=== PATIENT | female | born 1940 | race Caucasian/White ===

== ENCOUNTER 2017-08-16 00:04 | Emergency (ER) | payer MEDICARE, BC ==
[~2017-08-16] VITALS: Ht 167.6 cm; Wt 71.2 kg
[~2017-08-16 00:04] MED LIST: GLIP2.5T6 PO; LEVO100T4 PO; LISI30TA44 PO; VALI5TAB PO
[2017-08-16 00:12] VITALS: BP 226/109; PULSE 116; RESP 18; TEMP 98.3; O2SAT 97
[2017-08-16] MEDS ORDERED: PARO20TA2 PO (00:27)
[2017-08-16] MEDS ORDERED: OMEP20TA93 PO (00:27)
[2017-08-16] MEDS ORDERED: LEVO100T5 PO (00:27)
[2017-08-16] MEDS ORDERED: MECL12.574 PO (00:27)
[2017-08-16] MEDS ORDERED: GLIP5TAB8 PO (00:27)
[2017-08-16] MEDS ORDERED: PROP20TA3 PO (00:27)
[2017-08-16 00:41] VITALS: BP 200/100; PULSE 99; RESP 18; O2SAT 95
--- NOTE | 2017-08-16 00:45 | PD ---
HPI Chief Complaint: Eye Problems/Injury Time Seen by Provider: 00:40 Travel History International Travel<30 days: No Contact w/Intl Traveler<30days: No Traveled to known affect area: No History of Present Illness HPI The patient is a 77-year-old female that at approximately 11:30 tonight was walking out to the mailbox and her foot got caught and she tripped, lost balance and fell and hit her right face. There was no loss of consciousness following the fall. She denies any cervical spine, thoracic spine or lumbar spine pain. She denies any focal numbness or weakness. She denies any headache. She is not on any anticoagulants. She has periorbital ecchymoses around the eye. She also notes that she bit her lower lip and has some bite lacerations there. She denies any loose teeth. She also had a nosebleed which resolved spontaneously. The patient states he did not take her nighttime blood pressure medication tonight. PFSH Past Medical History Anxiety: Yes Diabetes: Yes Patient Takes Glucophage: No GERD: Yes Hypertension: Yes Thyroid Disease: Yes Tetanus Vaccination: < 5 Years Influenza Vaccination: Yes Menopausal: Yes Past Surgical History Hysterectomy: Yes Social History Alcohol Use: No Tobacco Use: No Substance Use: No Allergies-Medications (Allergen,Severity, Reaction): Coded Allergies: No Known Allergies (Unverified Adverse Reaction, Unknown, 08/16/17) Reported Meds & Prescriptions Reported Meds & Active Scripts Active Reported Glipizide 5 Mg Tab 5 Mg PO BIDAC Take 30 minutes before a meal Meclizine (Meclizine HCl) 12.5 Mg Tab 12.5 Mg PO DIRECTED PRN Propranolol (Propranolol HCl) 20 Mg Tab 20 Mg PO Q12HR Paroxetine (Paroxetine HCl) 20 Mg Tab 20 Mg PO DAILY Omeprazole 20 Mg Tab 20 Mg PO DAILY Levothyroxine (Levothyroxine Sodium) 100 Mcg Tab 100 Mcg PO DAILY Review of Systems Except as stated in HPI: all other systems reviewed are Neg Physical Exam Narrative GENERAL: The patient is alert, oriented 3 in slight apparent distress with her right periorbital pain. Her vital signs show heart rate of 116 and blood pressure 226/109 but otherwise normal. SKIN: Focused skin assessment warm/dry. HEAD: Normocephalic. The patient has right periorbital ecchymoses but no bony deformity. No tenderness is present on the scalp and there is no deformity present on the scalp. EYES: Pupils equal and round. No scleral icterus. No injection or drainage. The right eye shows extraocular movements are normal, no blood in the anterior chamber, no proptosis and no evidence of rupture of the globe. ENT: No nasal bleeding or discharge. Mucous membranes pink and moist. The lower lip has a tooth laceration present, this does not need to be sutured. No loose teeth are present. NECK: Trachea midline. No JVD. No posterior CARDIOVASCULAR: Regular rate and rhythm. No murmur appreciated. RESPIRATORY: No accessory muscle use. Clear to auscultation. Breath sounds equal bilaterally. GASTROINTESTINAL: Abdomen soft, non-tender, nondistended. Hepatic and splenic margins not palpable. MUSCULOSKELETAL: No obvious deformities. No clubbing. No cyanosis. No edema. NEUROLOGICAL: Awake and alert. No obvious cranial nerve deficits. Motor grossly within normal limits. Normal speech. PSYCHIATRIC: Appropriate mood and affect; insight and judgment normal. Data Data Last Documented VS Vital Signs Date Time Temp Pulse Resp B/P (MAP) Pulse Ox O2 Delivery O2 Flow Rate FiO2 08/16/17 00:41 99 18 200/100 (133) 95 Room Air 08/16/17 00:[address] Facial Bones W/O Iv Cont (08/16/17 00:45) MDM Medical Decision Making Medical Screen Exam Complete: Yes Emergency Medical Condition: Yes Medical Record Reviewed: Yes Interpretation(s) The CAT scan of the facial bones shows a probable maxillary fracture on the right was some air in the orbit. There is a slight proptosis present as well. The patient will need to follow-up with Dr. Montilla who is adoption specialist [facility] for craniofacial. She'll be given Augmentin, 875 mg twice daily for 10 days. She also will get Percocet 5 prescription. Differential Diagnosis Fracture right maxillary sinus, ruptured globe-highly unlikely, facial bone fracture, entrapment Narrative Course The patient has a fractured right maxillary sinus. It is essentially nondisplaced. The radiologist has not read this film because, due to a problem with transmission, he could not read the CAT scan [facility]. Diagnosis Primary Impression: Fracture of right side of maxilla Additional Instructions: Do not drink alcohol or drive on the Percocet. The antibiotic is one tablet twice daily for [address] Montilla later on this morning to set up an appointment. Med/Other Pt SpecificInfo: Prescription(s) given Scripts Amoxicillin-Clavulanate (Augmentin) 875-125 Mg Tab 1 TAB PO BID for Infection for 10 Days, #20 TAB 0 Refills Prov: Pankaj Kaur MD 08/16/17 Oxycodone-Acetaminophen (Percocet) 5-325 mg Tab 1 TAB PO Q6H Y for PAIN, #20 TAB 0 Refills Prov: Pankaj Kaur MD 08/16/17 Disposition: 01 DISCHARGE HOME Condition: Stable Pankaj Kaur MD Aug 16, 2017 00:45
[2017-08-16] MEDS ORDERED: PERC5TAB12 PO (01:40)
[2017-08-16] MEDS ORDERED: AUGM875T3 PO (01:40)
[2017-08-16] MEDS ORDERED: oxyCODONE/ACETAMINOPHEN 5 MG/325 MG TAB PO ONE (01:45)
[2017-08-16] MEDS ORDERED: AMOXICILLIN/CLAVULANATE K 875 MG TAB PO ONE (01:45)
--- NOTE | 2017-08-16 02:17 | RADRPT ---
EXAM DATE/TIME: 08/16/2017 00:50 [facility] COMPARISON: No previous studies available for comparison. INDICATIONS : Trauma, fall. Right eye injury. RADIATION DOSE: 29.73 CTDIvol (mGy) MEDICAL HISTORY : None SURGICAL HISTORY : None. ENCOUNTER: Initial ACUITY: 1 day PAIN SCORE: 8/10 LOCATION: Right orbit TECHNIQUE: Volumetric scanning of the facial bones was performed. Using automated exposure control and adjustme nt of the mA and/or kV according to patient size, radiation dose was kept as low as reasonably achiev able to obtain optimal diagnostic quality images. DICOM format image data is available electronicall y for review and comparison. FINDINGS: ORBITS: There is a right orbital floor fracture. The fragment is depressed and displaced medially. There is a bnormal soft tissue in the superior right maxillary sinus with no definite evidence of nerve entrapme nt. The lamina papyracea appear intact. The superior and lateral laboy of the orbit are intact as wel l. Left orbit is unremarkable. The globes are grossly intact. There is mild right proptosis. There is a small amount of subcutaneous emphysema on the right. NASAL BONE: The nasal bone and maxillary spine are intact ZYGOMATIC ARCHES: Symmetric without evidence of fracture. SINUSES: The maxillary, ethmoid and frontal sinuses are intact. No air-fluid levels seen. NASAL CAVITY: The nasal septum is intact and midline. The lacrimal ducts are intact. SOFT TISSUES: No radiopaque foreign bodies seen. There is soft tissue swelling over the right frontal bone and orbi t. INTRACRANIAL: No intracranial air seen. CRIBIFORM PLATE: Grossly intact. CONCLUSION: 1. Right orbital floor fracture with depressed fragment which is rotated and displaced medially. Ther e is abnormal soft tissue density in the superior right maxillary sinus. 2. Soft tissue swelling of the right frontal bone and orbit. The globe is grossly intact. 3. Mild right proptosis. Jerry Gomez MD on August 16, 2017 at 2:13 Board Certified Radiologist. This report was verified electronically.
[2017-08-16 02:26] VITALS: BP 180/90; RESP 18
== END 2017-08-16 02:37 | disposition home or self-care (01) ==
LOC: PHED 00:04
DX: S02.40CA Maxillary fracture, right side, initial encounter for closed fracture (principal); W01.0XXA Fall on same level from slipping, tripping and stumbling without subsequent striking against object, initial encounter; Y93.01 Activity, walking, marching and hiking
CPT/HCPCS: 70486; 99284

== ENCOUNTER 2017-09-13 12:46 | Inpatient (IN) | payer MEDICARE, BC ==
[~2017-09-13] VITALS: Ht 165.1 cm; Wt 67.0 kg
[2017-09-13] VITALS (10 sets, daily range): BP systolic 111–177; BP diastolic 67–88; PULSE 90–108; RESP 16–23; TEMP 97.6–99.2; O2SAT 94–100
[~2017-09-13 12:46] MED LIST changes: +AUGM875T3 PO; -GLIP2.5T6 PO; +GLIP5TAB8 PO; -LEVO100T4 PO; +LEVO100T5 PO; -LISI30TA44 PO; +MECL12.574 PO; +OMEP20TA93 PO; +PARO20TA2 PO; +PERC5TAB12 PO; +PROP20TA3 PO; -VALI5TAB PO
--- NOTE | 2017-09-13 13:11 | PD ---
HPI Chief Complaint: Fall Time Seen by Provider: 13:07 Travel History International Travel<30 days: No Contact w/Intl Traveler<30days: No Traveled to known affect area: No History of Present Illness HPI This 77-year-old female apparently had a fall at home and hit her head. She is brought in by her brother. She says she was cleaning the garage and fell. She does not think she had a loss of consciousness. Brother says that she seemed a little bit confused at the scene. She is not on any blood thinners. She did have a fall in August and was seen here at that time. PFSH Past Medical History Anxiety: Yes Diabetes: Yes Patient Takes Glucophage: No GERD: Yes Hypertension: Yes Medical other: Yes (vertigo) Thyroid Disease: Yes Tetanus Vaccination: < 5 Years Influenza Vaccination: Yes Menopausal: Yes Past Surgical History Hysterectomy: Yes Social History Alcohol Use: No Tobacco Use: No Substance Use: No Allergies-Medications (Allergen,Severity, Reaction): Coded Allergies: No Known Allergies (Unverified Adverse Reaction, Unknown, 09/13/17) Reported Meds & Prescriptions Reported Meds & Active Scripts Active Percocet (Oxycodone-Acetaminophen) 5-325 mg Tab 1 Tab PO Q6H PRN Reported Glipizide 5 Mg Tab 5 Mg PO BIDAC Take 30 minutes before a meal Meclizine (Meclizine HCl) 12.5 Mg Tab 12.5 Mg PO DIRECTED PRN Propranolol (Propranolol HCl) 20 Mg Tab 20 Mg PO Q12HR Paroxetine (Paroxetine HCl) 20 Mg Tab 20 Mg PO DAILY Omeprazole 20 Mg Tab 20 Mg PO DAILY Levothyroxine (Levothyroxine Sodium) 100 Mcg Tab 100 Mcg PO DAILY Review of Systems General / Constitutional: No: Fever, Chills Eyes: No: Diploplia, Blurred Vision HENT: No: Headaches Cardiovascular: No: Chest Pain or Discomfort, Palpitations Respiratory: No: Cough, Shortness of Breath Genitourinary: No: Urgency, Frequency Neurologic: No: Weakness, Dizziness Psychiatric: No: Anxiety Physical Exam Narrative GENERAL: Well-developed female SKIN: Focused skin assessment warm/dry. HEAD: Normocephalic. There is a contusion with a small amount of bleeding in the occipital portion of the scalp, no definite lacerations seen EYES: Pupils equal and round. No scleral icterus. No injection or drainage. ENT: No nasal bleeding or discharge. Mucous membranes pink and moist. NECK: Trachea midline. No JVD. CARDIOVASCULAR: Regular rate and rhythm. No murmur appreciated. RESPIRATORY: No accessory muscle use. Clear to auscultation. Breath sounds equal bilaterally. GASTROINTESTINAL: Abdomen soft, non-tender, nondistended. Hepatic and splenic margins not palpable. MUSCULOSKELETAL: No obvious deformities. No clubbing. No cyanosis. No edema. NEUROLOGICAL: Awake and alert. No obvious cranial nerve deficits. Motor grossly within normal limits. Normal speech. She is not oriented to the year. She thinks it is August. She does which gave the week it is PSYCHIATRIC: Appropriate mood and affect; insight and judgment normal. Data Data Last Documented VS Vital Signs Date Time Temp Pulse Resp B/P (MAP) Pulse Ox O2 Delivery O2 Flow Rate FiO2 09/13/17 13:18 90 18 168/82 (110) 98 Room Air Orders Orders Complete Blood Count With Diff (09/13/17 13:07) Basic Metabolic Panel (Bmp) (09/13/17 13:07) Ct Brain W/O Iv Contrast(Rout) (09/13/17 13:07) Ct Cerv Spine W/O Contrast (09/13/17 13:07) Prothrombin Time / Inr (Pt) (09/13/17 14:21) Act Partial Throm Time (Ptt) (09/13/17 14:21) Glipizide (Glucotrol) (09/13/17 16:00) Levothyroxine (Synthroid) (09/14/17 06:00) Meclizine (Antivert) (09/13/17 15:00) Oxycodone-Acetamin 5-325 Mg (Percocet (09/13/17 15:00) Paroxetine (Paxil) (09/14/17 09:00) Propranolol (Inderal) (09/13/17 21:00) Pantoprazole (Protonix) (09/14/17 09:00) Admit Order (Ed Use Only) (09/13/17 14:41) Pill Splitter (Pill Splitter) (09/13/17 15:00) Admit To Inpatient (09/13/17 14:43) Elevate Head Of Bed (09/13/17 14:43) Intake + Output REBECCA.Q8H (09/13/17 14:43) Diet Clear Liquid (09/13/17 Dinner) Complete Blood Count With Diff (09/14/17 06:00) Basic Metabolic Panel (Bmp) (09/14/17 06:00) Prothrombin Time / Inr (Pt) (09/14/17 06:00) Act Partial Throm Time (Ptt) (09/14/17 06:00) Resp Incentive Spirometry (09/13/17 14:43) Consult Pt Eval & Treat (09/13/17 14:43) Activity Oob With Assistance PRN (09/13/17 14:43) Diet Progression Instructions (09/13/17 14:43) Ct Brain W/O Iv Contrast(Rout) (09/14/17 06:00) Scd Bilateral/Knee High REBECCA.QSHIFT (09/13/17 14:43) Neuro Checks RT.Q1H (09/13/17 14:43) Vital Signs (Adult) REBECCA.Q1H (09/13/17 14:43) Inpatient Certification (09/13/17 ) 1/2 Ns + Kcl 20 Meq Inj (2 Ns + Kcl 20 (09/13/17 14:43) Docusate Sodium (Colace) (09/13/17 21:00) Ondansetron Inj (Zofran Inj) (09/13/17 18:00) Labetalol Inj (Trandate Inj) (09/13/17 15:00) Enalaprilat Inj (Vasotec Inj) (09/13/17 22:00) Labs Laboratory Tests Test 09/13/17 13:13 White Blood Count 10.6 TH/MM3 Red Blood Count 4.25 MIL/MM3 Hemoglobin 11.7 GM/DL Hematocrit 36.0 % Mean Corpuscular Volume 84.7 FL Mean Corpuscular Hemoglobin 27.5 PG Mean Corpuscular Hemoglobin Concent 32.5 % Red Cell Distribution Width 14.0 % Platelet Count 240 TH/MM3 Mean Platelet Volume 8.0 FL Neutrophils (%) (Auto) 75.8 % Lymphocytes (%) (Auto) 14.7 % Monocytes (%) (Auto) 6.3 % Eosinophils (%) (Auto) 2.0 % Basophils (%) (Auto) 1.2 % Neutrophils # (Auto) 8.0 TH/MM3 Lymphocytes # (Auto) 1.6 TH/MM3 Monocytes # (Auto) 0.7 TH/MM3 Eosinophils # (Auto) 0.2 TH/MM3 Basophils # (Auto) 0.1 TH/MM3 CBC Comment AUTO DIFF Differential Comment AUTO DIFF CONFIRMED Platelet Estimate NORMAL Platelet Morphology Comment NORMAL Blood Urea Nitrogen 17 MG/DL Creatinine 1.00 MG/DL Random Glucose 201 MG/DL Calcium Level 9.1 MG/DL Sodium Level 141 MEQ/L Potassium Level 4.5 MEQ/L Chloride Level 106 MEQ/L Carbon Dioxide Level 25.8 MEQ/L Anion Gap 9 MEQ/L Estimat Glomerular Filtration Rate 54 ML/MIN MDM Medical Decision Making Medical Screen Exam Complete: Yes Emergency Medical Condition: Yes Medical Record Reviewed: Yes Differential Diagnosis Differential includes subdural, skull fracture, cervical spine fracture Narrative Course CT scan shows acute subdural hematoma along the left frontal parietal and temporal lobes measuring 5 mm in greatest width. There is 4 mm of subfalcine herniation to the right there is also a fracture of the right occipital skull. CT scan of the cervical spine confirms a right occipital skull base fracture. No cervical spine fracture is seen and there are extensive degenerative changes. Case discussed with Dr. CAMACHO. She will be transferred to [place] Diagnosis Primary Impression: Subdural hematoma Additional Impression: Skull fracture Admitting Information Admitting Physician Requests: Admit Po Quinones MD Sep 13, 2017 13:11
[2017-09-13 13:23] LABS: BASOPHIL # 0.1 TH/MM3 (0-0.2); BASOPHIL % 1.2 % (0.0-2.0); EOSINOPHIL # 0.2 TH/MM3 (0-0.4); HEMOGLOBIN 11.7 GM/DL (11.6-15.3); LYMPH % 14.7 % (9.0-44.0); LYMPHOCYTE # 1.6 TH/MM3 (1.0-4.8); MEAN CELL VOLUME 84.7 FL (80.0-100.0); MEAN CORPUSCULAR HEMOGLOBIN 27.5 PG (27.0-34.0); MEAN CORPUSCULAR HGB CONC 32.5 % (32.0-36.0); MONO % 6.3 % (0.0-8.0); MONOCYTE # 0.7 TH/MM3 (0-0.9); NEUT % 75.8 % (16.0-70.0); PLATELET COUNT 240 TH/MM3 (150-450); RED BLOOD COUNT 4.25 MIL/MM3 (4.00-5.30); WHITE BLOOD COUNT 10.6 TH/MM3 (4.0-11.0)
[2017-09-13 13:34] LABS: BICARBONATE 25.8 MEQ/L (21.0-32.0); CALCIUM 9.1 MG/DL (8.5-10.1)
--- NOTE | 2017-09-13 14:24 | RADRPT ---
EXAM DATE/TIME: 09/13/2017 13:56 [facility] COMPARISON: CT CERVICAL SPINE W/O CONTRAST, September 13, 2017, 13:56. CT BRAIN W/O CONTRAST, May 29, 2014, 22:29. INDICATIONS : Trauma. Fell and hit back of head. Posterior head laceration. RADIATION DOSE: 62.32 CTDIvol (mGy) MEDICAL HISTORY : Diabetes mellitus type 2. Hypertension. SURGICAL HISTORY : Hysterectomy. ENCOUNTER: Initial ACUITY: 1 day PAIN SCALE: 2/10 LOCATION: cranial TECHNIQUE: Multiple contiguous axial images were obtained of the head. Using automated exposure control and adj ustment of the mA and/or kV according to patient size, radiation dose was kept as low as reasonably a chievable to obtain optimal diagnostic quality images. DICOM format image data is available electro nically for review and comparison. FINDINGS: There is evidence of an acute subdural hematoma along the left frontal, parietal and temporal lobes m easuring 5 mm in greatest width. Acute subarachnoid hemorrhage is also noted throughout the left fron chidi lobe and scattered petechial hemorrhages are also noted within left frontal lobe. There is 4 mm o f subfalcine herniation to the right. There is an acute fracture involving the right occipital skull. Subgaleal hematoma is noted along the right occipital and posterior parietal skull. The ventricles a re normal in size shape and position for patient's age. CONCLUSION: 1. Acute subdural hematoma along the left frontal, parietal and temporal lobes measuring 5 mm in grea test width. Acute subarachnoid hemorrhage is also noted throughout the left frontal lobe and scattere d petechial hemorrhages are also noted within left frontal lobe. There is 4 mm of subfalcine herniati on to the right. 2. Acute fracture mild right occipital skull as well as subgaleal hematoma along the right occipital and posterior parietal skull. Mike Laguna MD on September 13, 2017 at 14:16 Board Certified Radiologist. This report was verified electronically.
--- NOTE | 2017-09-13 14:45 | RADRPT ---
EXAM DATE/TIME: 09/13/2017 13:56 [facility] COMPARISON: No previous studies available for comparison. INDICATIONS : Trauma. Fell and hit back of head. Posterior head laceration. RADIATION DOSE: 25.58 CTDIvol (mGy) MEDICAL HISTORY : Diabetes mellitus type 2. Hypertension. SURGICAL HISTORY : Hysterectomy. ENCOUNTER: Initial ACUITY: 1 day PAIN SCALE: 2/10 LOCATION: neck TECHNIQUE: Volumetric scanning of the cervical spine was performed. Multiplanar reconstructions in the sagittal, coronal and oblique axial planes were performed. Using automated exposure control and adjustment o f the mA and/or kV according to patient size, radiation dose was kept as low as reasonably achievable to obtain optimal diagnostic quality images. DICOM format image data is available electronically f or review and comparison. FINDINGS: Degenerative changes and scoliosis of the cervical spine are noted. There is a cervical spondylosis f rom C2 through C7. There is no acute fracture or prevertebral soft tissue swelling. There is an acute fracture involving the right occipital skull base. Mild spinal stenosis is noted at C3-4 and C5-6. M oderate bilateral foraminal narrowing is noted at C5-6, moderate left neural foraminal narrowing is n oted at C6-7, and moderate right neural foraminal narrowing is noted at C3-4. The bony relationship a nd alignment between C1 and C2 is well maintained. CONCLUSION: 1. Acute fracture involving right occipital skull base. 2. No definite acute fracture or prevertebral soft tissue swelling within the cervical spine. 3. Mild spinal stenosis at C3-4 and C5-6. 4. Moderate bilateral foraminal narrowing at C5-6, moderate left neuroforaminal at C6-7 and moderate right neural foraminal narrowing at C3-4. 5. Diffuse cervical spondylosis from C2 through C7. 6. Degenerative changes and scoliosis of the cervical spine. Mike Laguna MD on September 13, 2017 at 14:32 Board Certified Radiologist. This report was verified electronically.
[2017-09-13] MEDS ORDERED: PILL SPLITTER OTHER PRN (15:00)
[2017-09-13] MEDS ORDERED: oxyCODONE/ACETAMINOPHEN 5 MG/325 MG TAB PO PRN (15:00)
[2017-09-13] MEDS ORDERED: MECLIZINE HCL 25 MG TAB PO PRN (15:00)
--- NOTE | 2017-09-13 15:01 | HHI.HP ---
[facility] Service Neurosurgery Primary Care Physician Milo BossNorbertochrista Arce MD History of Present Illness 77-year-old female who previously presented to the emergency room on 08/16/2017 after falling at home after she tripped while going to her mailbox. She struck the right side of the face without loss of consciousness. In the emergency room she was noted to have right periorbital ecchymosis. A right orbital floor fracture with some swelling around the right frontal bone and orbit was noted on maxillofacial CT scan. She fell again today for cleaning out her garage. She states that she was down on her knees and only fell forward slightly. She actually does remember hitting her head. Again no definite loss of consciousness but was noted to be somewhat confused at the scene. She presented to the emergency room at [facility] without significant headache and no nausea or emesis. No seizure activity reported. She denies any neck or low back pain. No nausea or vomiting. No dizziness or vertigo. No blurred vision or diplopia. Review of Systems Constitutional: COMPLAINS OF: Fatigue, DENIES: Dizziness, Change in appetite Eyes: DENIES: Blurred vision, Diplopia Ears, nose, mouth, throat: COMPLAINS OF: Hearing loss, DENIES: Vertigo Respiratory: DENIES: Cough, Shortness of breath Cardiovascular: DENIES: Chest pain, Palpitations Gastrointestinal: DENIES: Abdominal pain, Constipation, Diarrhea, Nausea Musculoskeletal: DENIES: Joint pain, Muscle aches Integumentary: DENIES: Rash Neurologic: COMPLAINS OF: Headache, DENIES: Abnormal gait Psychiatric: DENIES: Anxiety, Confusion Past Family Social History Allergies: Coded Allergies: No Known Allergies (Unverified Adverse Reaction, Unknown, 09/13/17) Past Medical History Diabetes Hypertension hypothyroidism GERD Anxiety disorder Past Surgical History Hysterectomy Reported Medications Reported Meds & Active Scripts Active Percocet (Oxycodone-Acetaminophen) 5-325 mg Tab 1 Tab PO Q6H PRN Reported Glipizide 5 Mg Tab 5 Mg PO BIDAC Take 30 minutes before a meal Meclizine (Meclizine HCl) 12.5 Mg Tab 12.5 Mg PO DIRECTED PRN Propranolol (Propranolol HCl) 20 Mg Tab 20 Mg PO Q12HR Paroxetine (Paroxetine HCl) 20 Mg Tab 20 Mg PO DAILY Omeprazole 20 Mg Tab 20 Mg PO DAILY Levothyroxine (Levothyroxine Sodium) 100 Mcg Tab 100 Mcg PO DAILY Family History Patient states no history of cardiac disease, diabetes, cancer in the family Social History No alcohol or cigarette use She states she lives alone Physical Exam Vital Signs Vital Signs Date Time Temp Pulse Resp B/P (MAP) Pulse Ox O2 Delivery O2 Flow Rate FiO2 09/13/17 13:18 90 18 168/82 (110) 98 Room Air 09/13/17 13:02 99 Room Air Physical Exam GENERAL: This is a well-nourished, well-developed patient, no apparent distress. SKIN: No abrasions, contusion, rash noted. Skin warm and dry. HEAD: Atraumatic. Normocephalic. No temporal or scalp tenderness. EYES: Sclerae are clear and nonicteric ENT: No facial edema or ecchymosis. No periorbital edema. No CSF otorrhea or rhinorrhea. No palpable facial fracture or deformity. NECK: Trachea midline. No cervical spine tenderness. CARDIOVASCULAR: Regular rate and rhythm without murmurs, gallops, or rubs. RESPIRATORY: Clear to auscultation. Breath sounds equal bilaterally. No wheezes , rales, or rhonchi. GASTROINTESTINAL: Abdomen soft, non-tender, nondistended. No hepato-splenomegaly , or palpable masses. No guarding. MUSCULOSKELETAL: Extremities without cyanosis, or edema. No joint tenderness, or edema noted. No calf tenderness. Dorsalis pedis pulses 2+ bilateral NEUROLOGICAL: Awake and alert Oriented X 3 Speech is clear Conversant and appropriate Follow simple commands well Answers questions appropriately Seems to have diminished judgment and insight Recent and remote memory are reasonably intact, although she does not seem to recall what happened to her earlier today No evidence of anxiety or depression Pupils are equal and reactive to accommodation. Extra-ocular movements, visual machado to confrontation, facial sensorimotor, tongue, palate, sternocleidomastoid testing, hearing to finger rub testing, and bilateral shoulder shrug are all intact. Sensation is intact to light touch in all extremities Strength normal major flexion and extension groups all extremities Regino's absent bilaterally No ankle clonus Plantar responses absent bilateral Fine motor movements intact upper extremities Laboratory Laboratory Tests Test 09/13/17 13:13 White Blood Count 10.6 Red Blood Count 4.25 Hemoglobin 11.7 Hematocrit 36.0 Mean Corpuscular Volume 84.7 Mean Corpuscular Hemoglobin 27.5 Mean Corpuscular Hemoglobin Concent 32.5 Red Cell Distribution Width 14.0 Platelet Count 240 Mean Platelet Volume 8.0 Neutrophils (%) (Auto) 75.8 Lymphocytes (%) (Auto) 14.7 Monocytes (%) (Auto) 6.3 Eosinophils (%) (Auto) 2.0 Basophils (%) (Auto) 1.2 Neutrophils # (Auto) 8.0 Lymphocytes # (Auto) 1.6 Monocytes # (Auto) 0.7 Eosinophils # (Auto) 0.2 Basophils # (Auto) 0.1 CBC Comment AUTO DIFF Differential Comment AUTO DIFF CONFIRMED Platelet Estimate NORMAL Platelet Morphology Comment NORMAL Blood Urea Nitrogen 17 Creatinine 1.00 Random Glucose 201 Calcium Level 9.1 Sodium Level 141 Potassium Level 4.5 Chloride Level 106 Carbon Dioxide Level 25.8 Anion Gap 9 Estimat Glomerular Filtration Rate 54 Result Diagram: 09/13/17 1313 09/13/17 1313 Imaging 09/23/2017 CT scan head and cervical spine images reviewed by the undersigned. The study reveals approximately 3-5 mm maximum thickness left frontotemporoparietal acute subdural hematoma with mild to moderate mass effect , approximate 4 mm midline shift which is mostly confined to the left frontal region. Small amount of subarachnoid hemorrhage and contusion in the left frontal lobe is noted. There is a right occipital nondisplaced skull fracture. Right parieto-occipital subgaleal hematoma. Cervical spine CT scan 09/13/2017 images reveal mild to moderate diffuse degenerative changes with mild C3 4 and moderate C5 6 canal stenosis and moderate bilateral C5 6 and C6 7 foraminal stenosis. No evidence of significant cord compression. No acute fracture or subluxation. The occipital bone fracture is noted. Head CT 09/13/17 1307 Signed Impressions: Service Date/Time: September 13:56 - CONCLUSION: 1. Acute subdural hematoma along the left frontal, parietal and temporal lobes measuring 5 mm in greatest width. Acute subarachnoid hemorrhage is also noted throughout the left frontal lobe and scattered petechial hemorrhages are also noted within left frontal lobe. There is 4 mm of subfalcine herniation to the right. 2. Acute fracture mild right occipital skull as well as subgaleal hematoma along the right occipital and posterior parietal skull. Mike Laguna MD Cervical Spine CT 09/13/17 1307 Signed Impressions: Service Date/Time: September 13:56 - CONCLUSION: 1. Acute fracture involving right occipital skull base. 2. No definite acute fracture or prevertebral soft tissue swelling within the cervical spine. 3. Mild spinal stenosis at C3-4 and C5-6. 4. Moderate bilateral foraminal narrowing at C5-6, moderate left neuroforaminal at C6-7 and moderate right neural foraminal narrowing at C3-4. 5. Diffuse cervical spondylosis from C2 through C7. 6. Degenerative changes and scoliosis of the cervical spine. MD Bulmaro Akins VTE Risk Assessment Bulmaro VTE Risk Assessment: No/Low Risk (score <= 1) VTE Pharm Contraindication: Hemorrhage Caprini Risk Assessment Model Point Value = 1 Point Value = 2 Point Value = 3 Point Value = 5 Age 41-60 Minor surgery BMI > 25 kg/m2 Swollen legs Varicose veins or History of unexplained or recurrent spontaneous Oral contraceptives or hormone replacement Sepsis (< 1 month) Serious lung disease, including pneumonia (< 1 month) Abnormal pulmonary function Acute myocardial infarction Congestive heart failure (< 1 month) History of inflammatory bowel disease Medical patient at bed rest Age 61-74 Arthroscopic surgery Major open surgery (> 45 min) Laparoscopic surgery (> 45 min) Malignancy Confined to bed (> 72 hours) Immobilizing plaster cast Central venous access Age >= 75 History of VTE Family history of VTE Factor V Leiden Prothrombin [id number] Lupus anticoagulant Anticardiolipin antibodies Elevated serum homocysteine Heparin-induced thrombocytopenia Other congenital or acquired thrombophilia Stroke (< 1 month) Elective arthroplasty Hip, pelvis, or leg fracture Acute spinal cord injury (< 1 month) Prophylaxis Regimen Total Risk Factor Score Risk Level Prophylaxis Regimen 0-1 Low Early ambulation 2 Moderate Order ONE of the following: *Sequential Compression Device (SCD) *Heparin 5000 units SQ BID 3-4 Higher Order ONE of the following medications: *Heparin 5000 units SQ TID *Enoxaparin/Lovenox 40 mg SQ daily (WT < 150 kg, CrCl > 30 mL/min) *Enoxaparin/Lovenox 30 mg SQ daily (WT < 150 kg, CrCl > 10-29 mL/min) *Enoxaparin/Lovenox 30 mg SQ BID (WT < 150 kg, CrCl > 30 mL/min) AND/OR *Sequential Compression Device (SCD) 5 or more Highest Order ONE of the following medications: *Heparin 5000 units SQ TID (Preferred with Epidurals) *Enoxaparin/Lovenox 40 mg SQ daily (WT < 150 kg, CrCl > 30 mL/min) *Enoxaparin/Lovenox 30 mg SQ daily (WT < 150 kg, CrCl > 10-29 mL/min) *Enoxaparin/Lovenox 30 mg SQ BID (WT < 150 kg, CrCl > 30 mL/min) AND *Sequential Compression Device (SCD) Assessment and Plan Assessment and Plan Impression: 1. Traumatic brain injury with left frontotemporoparietal acute subdural hematoma 2. Occipital skull fracture-close nondepressed 3. Hypertension 4. Diabetes 5. Anxiety disorder 6.GERD Plan: Discussed with emergency room physician Patient will be admitted to the intensive surgical care unit for close vital signs and neurologic checks Non-chemical DVT prophylaxis Ulcer prophylaxis Physical therapy consult to assess ambulation Follow up CT scan had 09/14/2017 Continue present medication for hypertension with additional when necessary medications. Insulin sliding scale Terrell Burgess MD Sep 13, 2017 15:01
[2017-09-13] MEDS ORDERED: GLUCAGON 1 MG/ML VIAL OTHER PRN (15:15)
[2017-09-13 15:31] LABS: INTERNATIONAL NORMALIZED RATIO 1.1 RATIO; PROTHROMBIN TIME - PATIENT 10.9 SEC (9.8-11.6)
[2017-09-13] MEDS: glipiZIDE 5 MG TAB PO SCH (17:33)
[2017-09-13] MEDS: INSULIN NovoLIN REGULAR SUPPLEMENTAL SCALE SQ SCH ×2 (17:34→21:00)
[2017-09-13] MEDS: 1/2 NS + KCL 20 MEQ INJ 1,000 ML IV SCH (17:34)
[2017-09-13] MEDS ORDERED: ONDANSETRON HCL 4 MG/2 ML VIAL IV PUSH PRN (18:00)
[2017-09-13] MEDS: PROPRANOLOL HCL 20 MG TAB PO SCH (21:08)
[2017-09-13] MEDS: DOCUSATE SODIUM 100 MG CAP PO SCH (21:08)
[2017-09-13] MEDS: ENALAPRILAT 1.25 MG/ML VIAL IV PUSH SCH (21:26)
[2017-09-14] VITALS (16 sets, daily range): BP systolic 135–174; BP diastolic 63–72; PULSE 77–96; RESP 20–28; TEMP 97.7–100; O2SAT 95–99
[2017-09-14] MEDS ORDERED: DEXMEDETOMIDINE INJ 200 MCG in SODIUM CHLORIDE 0.9% INJ 50 ML IV PRN (04:00)
--- NOTE | 2017-09-14 04:00 | PD.CONS ---
[facility] Service Critical Care Medicine Consult Requested By Dr. Burgess Reason for Consult Agitation Primary Care Physician Milo BossNorbertoDarin Arce MD History of Present Illness 77-year-old female. Date of admission 09/13/2017. Date of consultation 09/14/2017. Past medical history includes anxiety, hypertension, gastroesophageal reflux disease, diabetes and hypothyroidism. Previous history of fall 08/26. At that time, she was diagnosed with A right orbital floor fracture with some swelling around the right frontal bone and orbit was noted on maxillofacial CT scan. Today, she is cleaning out her garage. She was fell down. Checks her head. No loss of consciousness. She had no headache, nausea or emesis. No seizure activity reported. She denies any neck or low back pain. No nausea or vomiting. No dizziness or vertigo. No blurred vision or diplopia. CT brain revealed right subgaleal hematoma, left subdural and subarachnoid hemorrhage. Patient was admitted under the care of Dr. Burgess. Today, patient become more agitated. We are asked to patient regards to agitation so she can repeat head CT. Patient is currently arousable but not falling commands. Moving all 4 extremity spontaneously. Currently 4.0 Schanz. Review of Systems ROS Limitations: Altered Mental Status Past Family Social History Allergies: Coded Allergies: No Known Allergies (Unverified Adverse Reaction, Unknown, 09/13/17) Past Medical History Anxiety Hypertension Gastroesophageal reflux disease Diabetes mellitus Hypothyroidism Past Surgical History Hysterectomy Reported Medications Active Percocet (Oxycodone-Acetaminophen) 5-325 mg Tab 1 Tab PO Q6H PRN Reported Glipizide 5 Mg Tab 5 Mg PO BIDAC Take 30 minutes before a meal Meclizine (Meclizine HCl) 12.5 Mg Tab 12.5 Mg PO DIRECTED PRN Propranolol (Propranolol HCl) 20 Mg Tab 20 Mg PO Q12HR Paroxetine (Paroxetine HCl) 20 Mg Tab 20 Mg PO DAILY Omeprazole 20 Mg Tab 20 Mg PO DAILY Levothyroxine (Levothyroxine Sodium) 100 Mcg Tab 100 Mcg PO DAILY Active Ordered Medications Reviewed in EMR Family History No history of diabetes, hypertension, CVA Social History No tobacco, alcohol or IV drug use. Physical Exam Vital Signs Vital Signs Date Time Temp Pulse Resp B/P (MAP) Pulse Ox O2 Delivery O2 Flow Rate FiO2 09/14/17 02:00 90 22 145/67 (93) 95 1/5/18 02:00 90 09/14/17 01:00 92 25 143/64 (90) 96 09/14/17 00:00 100.0 96 25 150/67 (94) 95 09/14/17 00:00 96 09/13/17 23:00 100 17 111/68 (82) 94 09/13/17 23:00 98 09/13/17 22:00 100 09/13/17 22:00 100 18 111/69 (83) 94 09/13/17 21:00 99.2 108 17 149/67 (94) 98 09/13/17 20:00 99.2 102 23 154/70 (98) 100 09/13/17 20:00 108 09/13/17 19:00 99.2 98 17 177/85 (115) 99 09/13/17 18:00 98 17 177/85 (115) 99 09/13/17 18:00 95 09/13/17 17:00 97.6 101 16 158/88 (111) 98 09/13/17 16:31 09/13/17 15:34 97.8 92 17 160/76 (104) 98 Room Air 09/13/17 14:20 95 17 166/77 (106) 100 Room Air 09/13/17 13:18 90 18 168/82 (110) 98 Room Air 09/13/17 13:02 99 Room Air Physical Exam GENERAL: 77-year-old female currently resting in bed in no acute distress SKIN: Warm and dry. HEAD: Renu right orbital rim fracture and currently the nondisplaced right occipital fracture EYES: Pupils equal and round. About 3 Espinoza's bilaterally and reactive No scleral icterus. No injection or drainage. ENT: No nasal bleeding or discharge. Mucous membranes pink and moist. NECK: Trachea midline. No JVD. CARDIOVASCULAR: Regular rate and rhythm. RESPIRATORY: No accessory muscle use. Clear to auscultation. Breath sounds equal bilaterally. GASTROINTESTINAL: Abdomen soft, non-tender, nondistended. Hepatic and splenic margins not palpable. MUSCULOSKELETAL: Extremities without clubbing, cyanosis, or edema. No obvious deformities. NEUROLOGICAL: Awake and alert. No obvious cranial nerve deficits. Motor grossly normal. Moving all 4 extremities spontaneously but not currently to command. Laboratory Laboratory Tests Test 09/13/17 13:13 09/13/17 15:12 White Blood Count 10.6 Red Blood Count 4.25 Hemoglobin 11.7 Hematocrit 36.0 Mean Corpuscular Volume 84.7 Mean Corpuscular Hemoglobin 27.5 Mean Corpuscular Hemoglobin Concent 32.5 Red Cell Distribution Width 14.0 Platelet Count 240 Mean Platelet Volume 8.0 Neutrophils (%) (Auto) 75.8 Lymphocytes (%) (Auto) 14.7 Monocytes (%) (Auto) 6.3 Eosinophils (%) (Auto) 2.0 Basophils (%) (Auto) 1.2 Neutrophils # (Auto) 8.0 Lymphocytes # (Auto) 1.6 Monocytes # (Auto) 0.7 Eosinophils # (Auto) 0.2 Basophils # (Auto) 0.1 CBC Comment AUTO DIFF Differential Comment AUTO DIFF CONFIRMED Platelet Estimate NORMAL Platelet Morphology Comment NORMAL Blood Urea Nitrogen 17 Creatinine 1.00 Random Glucose 201 Calcium Level 9.1 Sodium Level 141 Potassium Level 4.5 Chloride Level 106 Carbon Dioxide Level 25.8 Anion Gap 9 Estimat Glomerular Filtration Rate 54 Prothrombin Time 10.9 Prothromb Time International Ratio 1.1 Activated Partial Thromboplast Time 26.1 Result Diagram: 09/13/17 1313 09/13/17 1313 Imaging Last Impressions Head CT 09/13/17 1307 Signed Impressions: Service Date/Time: September 13:56 - CONCLUSION: 1. Acute subdural hematoma along the left frontal, parietal and temporal lobes measuring 5 mm in greatest width. Acute subarachnoid hemorrhage is also noted throughout the left frontal lobe and scattered petechial hemorrhages are also noted within left frontal lobe. There is 4 mm of subfalcine herniation to the right. 2. Acute fracture mild right occipital skull as well as subgaleal hematoma along the right occipital and posterior parietal skull. Mike Laguna MD Cervical Spine CT 09/13/17 1307 Signed Impressions: Service Date/Time: September 13:56 - CONCLUSION: 1. Acute fracture involving right occipital skull base. 2. No definite acute fracture or prevertebral soft tissue swelling within the cervical spine. 3. Mild spinal stenosis at C3-4 and C5-6. 4. Moderate bilateral foraminal narrowing at C5-6, moderate left neuroforaminal at C6-7 and moderate right neural foraminal narrowing at C3-4. 5. Diffuse cervical spondylosis from C2 through C7. 6. Degenerative changes and scoliosis of the cervical spine. Mike Laguna MD Septic Shock Reassessment Septic shock perfusion: reassessment completed Assessment and Plan Assessment and Plan Neuro/Psych: Left frontotemporal parietal acute subdural hematoma Left frontal subarachnoid hemorrhage Right occipital nondisplaced skull fracture Right parietal occipital subcutaneous galeal hematoma C3 through C6 moderate canal stenosis and C5 to C7 moderate bilateral foraminal stenosis Depression/anxiety Chronic narcotic use Continue paroxetine 20 mg by mouth daily home medication for depression/anxiety Continue oxycodone/acetaminophen 5/325 one tablet every [address] brain 09/13 - 4mm maximum thickness left frontotemporoparietal acute subdural hematoma with mild to moderate mass effect, approximate 4 mm midline shift which is mostly confined to the left frontal region. Small amount of subarachnoid hemorrhage and contusion in the left frontal lobe is noted. There is a right occipital nondisplaced skull fracture. Right parieto-occipital subgaleal hematoma. Cervical spine CT scan 09/13/2017 i-n mild to moderate diffuse degenerative changes with mild C3 4 and moderate C5 6 canal stenosis and moderate bilateral C5 6 and C6 7 foraminal stenosis. No evidence of significant cord compression. No acute fracture or subluxation. The occipital bone fracture is noted. CT brain ordered for today. Currently on dexmedetomidine due to agitation Goal RASS 0 CV: Hypertension Currently on one half normal saline with KCl 100 cc an hour Currently on propranolol 20 mg by mouth daily Currently on scheduled enalaprilat 1.25 mg every 8 hours As needed labetalol 10 mg every hour's as needed systolic pressure is 160 Resp: Nasal cannula to maintain saturations greater than equal to 92% Incentive spirometry while awake GI: Gastroesophageal reflux disease Currently on pantoprazole 20 mg by mouth daily. On omeprazole 20 mg by mouth daily at home for gastroesophageal reflux disease Docusate sodium 100 mg by mouth twice a day for bowel regimen : No indication for Watts catheter Endo: Diabetes mellitus Hypothyroidism Currently in glipizide 5 mg twice a day and Novulin R SSI with Accu-Cheks before meals/at bedtime to maintain euglycemia/low regimen Continue levothyroxine 100 mcg by mouth daily for hypothyroidism Renal: Creatinine currently within normal limits Monitor urine output Accurate I's and O's Heme: CBC within normal limits Does not be transfusion thresholds at this time Coags normal ID: Monitor for infection FEN: Replace electrolytes as clinically indicated MSK: PT evaluate and treat Access - Utilize peripheral IVs. Central line if indicated Prophylaxis - GI - pantoprazole - DVT - SCD/holding pharmacological prophylaxis until okay with neurosurgery Level II consult Code Status Full code Discussed Condition With Patient. Care plan discussed and all questions answered. Johnny Copeland MD Sep 14, 2017 04:00
--- NOTE | 2017-09-14 04:55 | RADRPT ---
EXAM DATE/TIME: 09/14/2017 04:26 [place] COMPARISON: CT BRAIN W/O CONTRAST, September 13, 2017, 13:56. INDICATIONS : Follow up subdural hematoma. RADIATION DOSE: 36.84 CTDIvol (mGy) MEDICAL HISTORY : None SURGICAL HISTORY : None. ENCOUNTER: Initial ACUITY: 2 days PAIN SCALE: Non-responsive LOCATION: cranial TECHNIQUE: Multiple contiguous axial images were obtained of the head. Using automated exposure control and adj ustment of the mA and/or kV according to patient size, radiation dose was kept as low as reasonably a chievable to obtain optimal diagnostic quality images. DICOM format image data is available electro nically for review and comparison. FINDINGS: Left-sided subdural hematoma on the frontal and temporal regions again seen and unchanged in size. As sociated mass effect is unchanged. 4 mm left right midline shift unchanged. Left frontal parenchymal hemorrhage also unchanged. Ventricles within normal limits. There is opacification of the right maxil javad sinus. This area was not included in the field of view on the prior study. Air-fluid level in sp henoid sinus can seen. Occipital skull fracture again noted. CONCLUSION: No significant interval change. Left sided subdural hematoma and left frontal parenchymal hemorrhage again seen. Geovany Woods MD on September 14, 2017 at 4:47 Board Certified Radiologist. This report was verified electronically.
[2017-09-14 05:29] LABS: AUTOMATED NEUTROPHIL # 9.8 TH/MM3 (1.8-7.7); BASOPHIL # 0.1 TH/MM3 (0-0.2); BASOPHIL % 0.4 % (0.0-2.0); LYMPH % 12.7 % (9.0-44.0); LYMPHOCYTE # 1.6 TH/MM3 (1.0-4.8); MEAN CELL VOLUME 83.7 FL (80.0-100.0); MEAN CORPUSCULAR HEMOGLOBIN 27.8 PG (27.0-34.0); MEAN CORPUSCULAR HGB CONC 33.3 % (32.0-36.0); MEAN PLATELET VOLUME 8.5 FL (7.0-11.0); MONO % 8.5 % (0.0-8.0); MONOCYTE # 1.1 TH/MM3 (0-0.9); NEUT % 78.4 % (16.0-70.0); PLATELET COUNT 204 TH/MM3 (150-450); RED BLOOD COUNT 3.94 MIL/MM3 (4.00-5.30); RED CELL DISTRIBUTION WIDTH 14.6 % (11.6-17.2); WHITE BLOOD COUNT 12.6 TH/MM3 (4.0-11.0)
[2017-09-14 05:35] LABS: INTERNATIONAL NORMALIZED RATIO 1.2 RATIO; PROTHROMBIN TIME - PATIENT 11.8 SEC (9.8-11.6)
[2017-09-14 05:49] LABS: BICARBONATE 24.4 MEQ/L (21.0-32.0); CALCIUM 8.6 MG/DL (8.5-10.1); CREATININE 0.85 MG/DL (0.50-1.00)
[2017-09-14] MEDS: LEVOTHYROXINE SODIUM 100 MCG TAB PO SCH (06:00)
[2017-09-14] MEDS: ENALAPRILAT 1.25 MG/ML VIAL IV PUSH SCH ×3 (06:00→22:31)
[2017-09-14] MEDS: 1/2 NS + KCL 20 MEQ INJ 1,000 ML IV SCH ×3 (06:04→20:43)
[2017-09-14] MEDS: glipiZIDE 5 MG TAB PO SCH ×3 (06:31→16:00)
[2017-09-14] MEDS: INSULIN NovoLIN REGULAR SUPPLEMENTAL SCALE SQ SCH ×4 (08:00→21:00)
[2017-09-14] MEDS: PARoxetine HCL 20 MG TAB PO SCH (08:49)
[2017-09-14] MEDS: PROPRANOLOL HCL 20 MG TAB PO SCH ×2 (08:49→22:31)
[2017-09-14] MEDS: DOCUSATE SODIUM 100 MG CAP PO SCH ×2 (08:49→22:31)
[2017-09-14] MEDS: PANTOPRAZOLE SOD 20 MG DELAYED RELEASE TAB PO SCH (08:49)
--- NOTE | 2017-09-14 11:05 | MG ---
cc: LINETTE JEFFRIES M.D. Lab No: [id number] Date: 09/14/2017 Age: 77 Sex: F Race: __ TECHNIQUE 17 channel EEG. DESCRIPTION The background rhythm reveals generalized slowing in the delta frequency 3-4 Hz amplitude at 10-20 microvolts. There are no lateralizing features seen. There are no epileptiform discharges present. Photic results in no driving response. INTERPRETATION Abnormal study consistent with diffuse encephalopathy. MD JUNI León/HEYDI /10:40 AM /10:49 AM
--- NOTE | 2017-09-14 17:12 | HHI.CCPN ---
Subjective Remarks/Hospital Course 09/13: 77-year-old female. Date of admission 09/13/2017. Date of consultation 09/14/2017. Past medical history includes anxiety, hypertension, gastroesophageal reflux disease, diabetes and hypothyroidism. Previous history of fall 08/26. At that time, she was diagnosed with A right orbital floor fracture with some swelling around the right frontal bone and orbit was noted on maxillofacial CT scan. Today, she is cleaning out her garage. She was fell down. Checks her head. No loss of consciousness. She had no headache, nausea or emesis. No seizure activity reported. She denies any neck or low back pain. No nausea or vomiting. No dizziness or vertigo. No blurred vision or diplopia. CT brain revealed right subgaleal hematoma, left subdural and subarachnoid hemorrhage. Patient was admitted under the care of Dr. Burgess. On 09/13, patient become more agitated. We are asked to patient regards to agitation so she can repeat head CT. Patient is currently arousable but not following commands. Moving all 4 extremity spontaneously. Objective Vital Signs Date Time Temp Pulse Resp B/P (MAP) Pulse Ox O2 Delivery O2 Flow Rate FiO2 09/14/17 14:00 80 09/14/17 12:00 98.7 20 135/71 (92) 99 09/14/17 07:56 21 09/13/17 15:34 Room Air Intake and Output 09/14/17 09/14/17 09/15/17 08:00 16:00 00:00 Intake Total 1279 ml Balance 1279 ml Result Diagram: 09/14/17 0505 09/14/17 0505 Imaging Last Impressions Head CT 09/13/17 1307 Signed Impressions: Service Date/Time: September 13:56 - CONCLUSION: 1. Acute subdural hematoma along the left frontal, parietal and temporal lobes measuring 5 mm in greatest width. Acute subarachnoid hemorrhage is also noted throughout the left frontal lobe and scattered petechial hemorrhages are also noted within left frontal lobe. There is 4 mm of subfalcine herniation to the right. 2. Acute fracture mild right occipital skull as well as subgaleal hematoma along the right occipital and posterior parietal skull. Mike Laguna MD Cervical Spine CT 09/13/17 3160 Signed Impressions: Service Date/Time: September 13:56 - CONCLUSION: 1. Acute fracture involving right occipital skull base. 2. No definite acute fracture or prevertebral soft tissue swelling within the cervical spine. 3. Mild spinal stenosis at C3-4 and C5-6. 4. Moderate bilateral foraminal narrowing at C5-6, moderate left neuroforaminal at C6-7 and moderate right neural foraminal narrowing at C3-4. 5. Diffuse cervical spondylosis from C2 through C7. 6. Degenerative changes and scoliosis of the cervical spine. Mike Laguna MD Objective Remarks GENERAL: 77-year-old female currently resting in bed in no acute distress SKIN: Warm and dry. HEAD: May right orbital rim fracture and currently the nondisplaced right occipital fracture EYES: Pupils equal and round. About 3 Espinoza's bilaterally and reactive No scleral icterus. No injection or drainage. ENT: No nasal bleeding or discharge. Mucous membranes pink and moist. NECK: Trachea midline. No JVD. CARDIOVASCULAR: Regular rate and rhythm. RESPIRATORY: No accessory muscle use. Clear to auscultation. Breath sounds equal bilaterally. GASTROINTESTINAL: Abdomen soft, non-tender, nondistended. Hepatic and splenic margins not palpable. MUSCULOSKELETAL: Extremities without clubbing, cyanosis, or edema. No obvious deformities. NEUROLOGICAL: Awake and alert. No obvious cranial nerve deficits. Motor grossly normal. Moving all 4 extremities spontaneously but not currently to command. A/P Assessment and Plan Neuro/Psych: Left frontotemporal parietal acute subdural hematoma Left frontal subarachnoid hemorrhage Right occipital nondisplaced skull fracture Right parietal occipital subcutaneous galeal hematoma C3 through C6 moderate canal stenosis and C5 to C7 moderate bilateral foraminal stenosis Depression/anxiety Chronic narcotic use Continue paroxetine 20 mg by mouth daily home medication for depression/anxiety Continue oxycodone/acetaminophen 5/325 one tablet every [address] brain 09/13 - 4mm maximum thickness left frontotemporoparietal acute subdural hematoma with mild to moderate mass effect, approximate 4 mm midline shift which is mostly confined to the left frontal region. Small amount of subarachnoid hemorrhage and contusion in the left frontal lobe is noted. There is a right occipital nondisplaced skull fracture. Right parieto-occipital subgaleal hematoma. Cervical spine CT scan 09/13/2017 i-n mild to moderate diffuse degenerative changes with mild C3 4 and moderate C5 6 canal stenosis and moderate bilateral C5 6 and C6 7 foraminal stenosis. No evidence of significant cord compression. No acute fracture or subluxation. The occipital bone fracture is noted. Currently on dexmedetomidine due to agitation Goal RASS 0 Repeat neuro imaging per neurosurgery. CV: Hypertension Currently on one half normal saline with KCl 100 cc an hour Currently on propranolol 20 mg by mouth daily Currently on scheduled enalaprilat 1.25 mg every 8 hours As needed labetalol 10 mg every hour's as needed systolic pressure is 160 Resp: Nasal cannula to maintain saturations greater than equal to 92% Incentive spirometry while awake GI: Gastroesophageal reflux disease Currently on pantoprazole 20 mg by mouth daily. On omeprazole 20 mg by mouth daily at home for gastroesophageal reflux disease Docusate sodium 100 mg by mouth twice a day for bowel regimen : No indication for Watts catheter Endo: Diabetes mellitus Hypothyroidism Currently in glipizide 5 mg twice a day and Novulin R SSI with Accu-Cheks before meals/at bedtime to maintain euglycemia/low regimen Continue levothyroxine 100 mcg by mouth daily for hypothyroidism Renal: Creatinine currently within normal limits Monitor urine output Accurate I's and O's Heme: CBC within normal limits Does not be transfusion thresholds at this time Coags normal ID: Monitor for infection FEN: Replace electrolytes as clinically indicated MSK: PT evaluate and treat Access - Utilize peripheral IVs. Central line if indicated Prophylaxis - GI - pantoprazole - DVT - SCD/holding pharmacological prophylaxis until okay with neurosurgery Lio Dan MD Sep 14, 2017 17:12
--- NOTE | 2017-09-14 17:15 | HHI.NSPN ---
(Lauri Rudolph) History Chief Complaint: None. (Lauri Rudolph) Interval History 09/13: 77-year-old female who previously presented to the emergency room on 08/16 after falling at home after she tripped while going to her mailbox. She struck the right side of the face without loss of consciousness. In the emergency room she was noted to have right periorbital ecchymosis. A right orbital floor fracture with some swelling around the right frontal bone and orbit was noted on maxillofacial CT scan. She fell again today for cleaning out her garage. She states that she was down on her knees and only fell forward slightly. She actually does remember hitting her head. Again no definite loss of consciousness but was noted to be somewhat confused at the scene. She presented to the emergency room at [facility] without significant headache and no nausea or emesis. No seizure activity reported. She denies any neck or low back pain. No nausea or vomiting. No dizziness or vertigo. No blurred vision or diplopia. 09/14: The patient is lethargic when seen but does have dexmedetomidine infusing for sedation. She briefly arouses to noxious stimulation. Her speech is soft and muffled. She is confused. She does move all extremities spontaneously and to command but not appropriately. She does not seem to comprehend some of what is being said to her. She did deny any headache, dizziness or nausea. Nursing reports that without the dexmedetomidine the patient is extremely agitated. She was oriented to person only for Nursing but did follow commands and was moving everything. (Lauri Rudolph) System Review Comments Unable to obtain due to patient's mental status. (Lauri Rudolph) Exam Results 09/12/17 09/12/17 09/13/17 09/13/17 09/14/17 09/14/17 06:00 18:00 06:00 18:00 06:00 18:00 Intake Total 120 ml 1159 ml Balance 120 ml 1159 ml Intake Oral 120 ml IV Total 1159 ml # Voids 2 # Bowel Movements 0 Vital Signs Date Time Temp Pulse Resp B/P (MAP) Pulse Ox O2 Delivery O2 Flow Rate FiO2 09/14/17 14:00 80 09/14/17 12:00 98.7 79 20 135/71 (92) 99 09/14/17 12:00 79 09/14/17 10:00 83 09/14/17 08:00 79 09/14/17 08:00 99.1 84 26 142/63 (89) 96 09/14/17 07:56 97 21 09/14/17 06:00 85 09/14/17 06:00 97.7 85 20 158/68 (98) 99 09/14/17 05:00 86 24 135/63 (87) 96 09/14/17 04:00 87 09/14/17 04:00 97.7 87 22 147/65 (92) 96 09/14/17 03:00 84 22 174/72 (106) 96 09/14/17 02:00 90 22 145/67 (93) 95 09/14/17 02:00 90 09/14/17 01:00 92 25 143/64 (90) 96 09/14/17 00:00 100.0 96 25 150/67 (94) 95 09/14/17 00:00 96 09/13/17 23:00 100 17 111/68 (82) 94 09/13/17 23:00 98 09/13/17 22:00 100 09/13/17 22:00 100 18 111/69 (83) 94 09/13/17 21:00 99.2 108 17 149/67 (94) 98 09/13/17 20:00 99.2 102 23 154/70 (98) 100 09/13/17 20:00 108 09/13/17 19:00 99.2 98 17 177/85 (115) 99 09/13/17 18:00 98 17 177/85 (115) 99 09/13/17 18:00 95 09/13/17 17:00 97.6 101 16 158/88 (111) 98 09/13/17 16:31 09/13/17 15:34 97.8 92 17 160/76 (104) 98 Room Air 09/13/17 14:20 95 17 166/77 (106) 100 Room Air 1/4/18 13:18 90 18 168/82 (110) 98 Room Air 09/13/17 13:02 99 Room Air (Lauri Rudolph) Physical Examination GENERAL: Lethargic, on 0.5 mcg/kg/min of dexmedetomidine for sedation, limited interaction, no apparent distress. HEENT: Normocephalic. PERRLA 3 mm reactive. MMM & pink, tongue midline to protrusion. MUSCULOSKELETAL: No evident deformity or clubbing. NEUROLOGICAL: Lethargic but sedated, did not respond to voice or sternal rub but briefly arouses to local noxious stimulation to LUE. Oriented to self only. Speech is soft & muffled. The patient does not appear to understand some of what is being said. She responds with the same answer to different questions. She followed some simple commands but did not appear to understand others. Unable to evaluate sensation due to mental status. She does move all extremities spontaneously and to command but not appropriately. (Lauri Rudolph) Lab, Micro, Other Results Recent Impressions Head CT 09/14/17 0600 Signed Impressions: Service Date/Time: Thursday, September 14, 2017 04:26 - CONCLUSION: No significant interval change. Left sided subdural hematoma and left frontal parenchymal hemorrhage again seen. Geovany Woods MD Head CT 09/13/17 1307 Signed Impressions: Service Date/Time: September 13:56 - CONCLUSION: 1. Acute subdural hematoma along the left frontal, parietal and temporal lobes measuring 5 mm in greatest width. Acute subarachnoid hemorrhage is also noted throughout the left frontal lobe and scattered petechial hemorrhages are also noted within left frontal lobe. There is 4 mm of subfalcine herniation to the right. 2. Acute fracture mild right occipital skull as well as subgaleal hematoma along the right occipital and posterior parietal skull. Mike Laguna MD Cervical Spine CT 09/13/17 1307 Signed Impressions: Service Date/Time: September 13:56 - CONCLUSION: 1. Acute fracture involving right occipital skull base. 2. No definite acute fracture or prevertebral soft tissue swelling within the cervical spine. 3. Mild spinal stenosis at C3-4 and C5-6. 4. Moderate bilateral foraminal narrowing at C5-6, moderate left neuroforaminal at C6-7 and moderate right neural foraminal narrowing at C3-4. 5. Diffuse cervical spondylosis from C2 through C7. 6. Degenerative changes and scoliosis of the cervical spine. Mike Laguna MD Laboratory Tests Test 09/13/17 13:13 09/13/17 15:12 09/14/17 05:05 White Blood Count 10.6 TH/MM3 12.6 TH/MM3 Red Blood Count 4.25 MIL/MM3 3.94 MIL/MM3 Hemoglobin 11.7 GM/DL 11.0 GM/DL Hematocrit 36.0 % 33.0 % Mean Corpuscular Volume 84.7 FL 83.7 FL Mean Corpuscular Hemoglobin 27.5 PG 27.8 PG Mean Corpuscular Hemoglobin Concent 32.5 % 33.3 % Red Cell Distribution Width 14.0 % 14.6 % Platelet Count 240 TH/MM3 204 TH/MM3 Mean Platelet Volume 8.0 FL 8.5 FL Neutrophils (%) (Auto) 75.8 % 78.4 % Lymphocytes (%) (Auto) 14.7 % 12.7 % Monocytes (%) (Auto) 6.3 % 8.5 % Eosinophils (%) (Auto) 2.0 % 0.0 % Basophils (%) (Auto) 1.2 % 0.4 % Neutrophils # (Auto) 8.0 TH/MM3 9.8 TH/MM3 Lymphocytes # (Auto) 1.6 TH/MM3 1.6 TH/MM3 Monocytes # (Auto) 0.7 TH/MM3 1.1 TH/MM3 Eosinophils # (Auto) 0.2 TH/MM3 0.0 TH/MM3 Basophils # (Auto) 0.1 TH/MM3 0.1 TH/MM3 CBC Comment AUTO DIFF DIFF FINAL Differential Comment AUTO DIFF CONFIRMED Platelet Estimate NORMAL Platelet Morphology Comment NORMAL Blood Urea Nitrogen 17 MG/DL 14 MG/DL Creatinine 1.00 MG/DL 0.85 MG/DL Random Glucose 201 MG/DL 113 MG/DL Calcium Level 9.1 MG/DL 8.6 MG/DL Sodium Level 141 MEQ/L 140 MEQ/L Potassium Level 4.5 MEQ/L 3.7 MEQ/L Chloride Level 106 MEQ/L 105 MEQ/L Carbon Dioxide Level 25.8 MEQ/L 24.4 MEQ/L Anion Gap 9 MEQ/L 11 MEQ/L Estimat Glomerular Filtration Rate 54 ML/MIN 65 ML/MIN Prothrombin Time 10.9 SEC 11.8 SEC Prothromb Time International Ratio 1.1 RATIO 1.2 RATIO Activated Partial Thromboplast Time 26.1 SEC 28.4 SEC (Lauri Rudolph) Medical Decision Making Impression and Plan Impression: 1. Traumatic brain injury with left frontotemporoparietal acute subdural hematoma 2. Occipital skull fracture-close nondepressed 3. Hypertension 4. Diabetes 5. Anxiety disorder 6. GERD The patient is lethargic when seen but on dexmedetomidine, does not respond to voice or sternal rub, but briefly arouses to noxious stimulation to LUE. Moves all extremities spontaneously and to command but not appropriately. She is confused and appears not to understand some of what is being said. Reviewed labs for this morning. Leukocytosis most likely inflammatory response to injury. Mild anaemia. INR 1.2. Interval improvement in renal function. CT brain this morning essentially unchanged. Plan: Critical care management per [employer]. Neuro checks. Stat CT brain for any decline in neuro status. Wean sedation as tolerated. Mechanical DVT prophylaxis. Hold pharmacologic DVT prophylaxis. Stress ulcer prophylaxis. Mobilise patient w/assistance. PT eval & tx. Continue present medication for hypertension with additional when necessary medications. Insulin sliding scale. (Lauri Rudolph) Attending Statement The exam, history, and the medical decision-making described in the above note were completed with the assistance of the mid-level provider. I reviewed and agree with the findings presented. I attest that I had a [id number] encounter with the patient on the same day, and personally performed and documented my assessment and findings in the medical record. On my examination 09/14/2017 the patient is moderately lethargic. She resists eye opening. She does not really want to participate with the exam. She says a few words, mostly mumbling type speech with significant dysarthria. She does not follow any commands. However she is able to perform purposeful movements with the upper and lower extremities. She readjust herself in bed as needed. Her daughter is in the room with her. She states that her mother really does not want to do anything until she goes home CT scan of the head 09/14/2017 images reviewed. The study reveals relatively stable left frontotemporal contusions and subarachnoid hemorrhage with mild mass effect. Continuing close observation and neurologic checks. Avoid chemical DVT prophylaxis at this point. She may need a Dobbhoff tube placed if continues to have poor oral intake. Continuing IV fluids Discussed with nursing staff (Terrell Burgess MD) Lauri Rudolph Sep 14, 2017 17:15 Terrell Burgess MD Sep 14, 2017 20:11
[2017-09-14] MEDS: DEXMEDETOMIDINE INJ 400 MCG in SODIUM CHLORIDE 0.9% INJ 96 ML IV PRN (19:57)
--- NOTE | 2017-09-14 23:14 | EKG ---
Date Performed: 09/13/2017 Time Performed: 12:56:07 PTAGE: 77 years EKG: Sinus rhythm NORMAL ECG PREVIOUS TRACING : 01/09/2014 20.46 Compared to prior tracing no significant change DOCTOR: Taras Acevedo Interpretating Date/Time 09/14/2017 23:13:16
[2017-09-15] VITALS (17 sets, daily range): BP systolic 121–167; BP diastolic 68–90; PULSE 67–100; RESP 20–26; TEMP 98.5–99.7; O2SAT 96–98
[2017-09-15] MEDS: LEVOTHYROXINE SODIUM 100 MCG TAB PO SCH (04:39)
[2017-09-15] MEDS: ENALAPRILAT 1.25 MG/ML VIAL IV PUSH SCH ×3 (04:39→22:27)
[2017-09-15] MEDS: DEXMEDETOMIDINE INJ 400 MCG in SODIUM CHLORIDE 0.9% INJ 96 ML IV PRN (04:41)
[2017-09-15] MEDS: 1/2 NS + KCL 20 MEQ INJ 1,000 ML IV SCH ×2 (06:03→16:46)
[2017-09-15] MEDS: glipiZIDE 5 MG TAB PO SCH ×3 (06:42→16:19)
[2017-09-15] MEDS: INSULIN NovoLIN REGULAR SUPPLEMENTAL SCALE SQ SCH ×4 (08:00→20:37)
[2017-09-15] MEDS: DOCUSATE SODIUM 100 MG CAP PO SCH ×2 (08:43→20:40)
[2017-09-15] MEDS: PARoxetine HCL 20 MG TAB PO SCH (08:44)
[2017-09-15] MEDS: PROPRANOLOL HCL 20 MG TAB PO SCH ×2 (08:44→20:40)
[2017-09-15] MEDS: PANTOPRAZOLE SOD 20 MG DELAYED RELEASE TAB PO SCH (08:44)
--- NOTE | 2017-09-15 12:39 | HHI.NSPN ---
(Yee Zaragoza) Note Status Status: Progress Note (Yee Zaragoza) Interval History Interval History 09/13: 77-year-old female who previously presented to the emergency room on 08/16 after falling at home after she tripped while going to her mailbox. She struck the right side of the face without loss of consciousness. In the emergency room she was noted to have right periorbital ecchymosis. A right orbital floor fracture with some swelling around the right frontal bone and orbit was noted on maxillofacial CT scan. She fell again today for cleaning out her garage. She states that she was down on her knees and only fell forward slightly. She actually does remember hitting her head. Again no definite loss of consciousness but was noted to be somewhat confused at the scene. She presented to the emergency room at [facility] without significant headache and no nausea or emesis. No seizure activity reported. She denies any neck or low back pain. No nausea or vomiting. No dizziness or vertigo. No blurred vision or diplopia. 09/14: The patient is lethargic when seen but does have dexmedetomidine infusing for sedation. She briefly arouses to noxious stimulation. Her speech is soft and muffled. She is confused. She does move all extremities spontaneously and to command but not appropriately. She does not seem to comprehend some of what is being said to her. She did deny any headache, dizziness or nausea. Nursing reports that without the dexmedetomidine the patient is extremely agitated. She was oriented to person only for Nursing but did follow commands and was moving everything. 09/15: becomes very agitated, on Precedex. opens eyes and moves all four. (Yee Zaragoza) Labs, Micro, & Vital Signs Results Date Time Temp Pulse Resp B/P (MAP) Pulse Ox O2 Delivery O2 Flow Rate FiO2 09/15/17 12:00 82 09/15/17 11:00 99.0 67 22 157/72 (100) 96 09/15/17 10:00 67 09/15/17 08:18 96 21 09/15/17 08:00 74 09/15/17 07:00 98.5 76 24 167/81 (109) 96 09/15/17 06:00 75 09/15/17 04:00 99.7 85 22 121/76 (91) 96 09/15/17 04:00 85 09/15/17 02:00 98 09/15/17 00:00 99.4 96 20 158/81 (106) 96 09/15/17 00:00 100 09/14/17 22:00 86 09/14/17 20:00 79 09/14/17 20:00 99.4 84 28 158/70 (99) 98 09/14/17 19:48 97 09/14/17 18:00 77 09/14/17 14:00 80 Constitutional Vital Signs Date Time Temp Pulse Resp B/P (MAP) Pulse Ox O2 Delivery O2 Flow Rate FiO2 09/15/17 12:00 82 09/15/17 11:00 99.0 67 22 157/72 (100) 96 09/15/17 10:00 67 09/15/17 08:18 96 21 09/15/17 08:00 74 09/15/17 07:00 98.5 76 24 167/81 (109) 96 09/15/17 06:00 75 09/15/17 04:00 99.7 85 22 121/76 (91) 96 09/15/17 04:00 85 09/15/17 02:00 98 09/15/17 00:00 99.4 96 20 158/81 (106) 96 09/15/17 00:00 100 09/14/17 22:00 86 09/14/17 20:00 79 09/14/17 20:00 99.4 84 28 158/70 (99) 98 09/14/17 19:48 97 09/14/17 18:00 77 09/14/17 14:00 80 (Yee Zaragoza) Review of Systems ROS Limitations: Clinical Condition, Altered Mental Status (Yee Zaragoza) Physical Exam Lethargic, on Precedex. CN: pupils equal, facial motor grossly symmetric Motor: reports to move all four extremities Neck: soft, supple (Yee Zaragoza) Ms Hermosillo is Lethargic, on Precedex. Cranial nerve examination: pupils to be equal, round and reactive to light. Extra-ocular movements are intact. Facial motor and sensory function are normal and symmetrical. Gross hearing appears intact. Sternocleidomastoid and trapezius muscles are symmetrical. Other cranial nerves are intact. Neck is soft and supple with a good range of motion without pain. Muscle strength is normal in all muscle groups of both upper and lower extremities. Sensory examination is intact to light touch and pin prick in both the upper and lower extremities. Deep tendon reflexes are symmetrical in both upper and lower extremities. There is a bilateral plantar flexion response. Cerebellar examination is unremarkable (Jerry Morley MD) Medications Current Medications Current Medications Medications (Trade) Dose Ordered Sig/Miguel Route PRN Reason Start Time Stop Time Status Last Admin Dose Admin Glipizide (Glucotrol) 5 mg BIDAC PO 09/13/17 16:00 09/15/17 06:42 Levothyroxine Sodium (Synthroid) 100 mcg DAILY@0600 PO 09/14/17 06:00 09/15/17 04:39 Meclizine HCl (Antivert) 12.5 mg Q8HR PRN PO VERTIGO 09/13/17 15:00 Oxycodone/ Acetaminophen (Percocet 5-325 Mg) 1 tab Q6HR PRN PO PAIN 09/13/17 15:00 Paroxetine HCl (Paxil) 20 mg DAILY PO 09/14/17 09:00 09/15/17 08:44 Propranolol HCl (Inderal) 20 mg Q12HR PO 09/13/17 21:00 09/15/17 08:44 Pantoprazole Sodium (Protonix) 20 mg DAILY PO 09/14/17 09:00 09/15/17 08:44 Miscellaneous (Pill Splitter) 1 ea UNSCH PRN OTHER SEE LABEL COMMENTS 09/13/17 15:00 Potassium Chloride/Sodium Chloride 1,000 ml @ 100 mls/hr Q10H IV 09/13/17 14:43 09/15/17 06:03 Docusate Sodium (Colace) 100 mg BID PO 09/13/17 21:00 09/15/17 08:43 Ondansetron HCl (Zofran Inj) 4 mg Q6HR PRN IV PUSH NAUSEA OR VOMITING 09/13/17 18:00 Labetalol HCl (Trandate Inj) 10 mg Q1H PRN IV SYS BP GREATER THAN 160 MMHG 09/13/17 15:00 Enalaprilat (Vasotec Inj) 1.25 mg Q8HR IV PUSH 09/13/17 22:00 09/15/17 04:39 Dextrose (D50w (Vial) Inj) 50 ml UNSCH PRN IV PUSH HYPOGLYCEMIA-SEE COMMENTS 09/13/17 15:15 Glucagon (Glucagon Inj) 1 mg UNSCH PRN OTHER HYPOGLYCEMIA-SEE COMMENTS 09/13/17 15:15 Insulin Human Regular (NovoLIN R SUPPLEMENTAL SCALE) 1 ACHS SLIDING SCALE SQ 09/13/17 17:00 09/14/17 21:00 Dexmedetomidine HCl 400 mcg/ Sodium Chloride 100 ml @ 3.26 mls/hr TITRATE PRN IV SEDATION 09/14/17 19:45 09/15/17 04:41 (Yee Zaragoza) Current Medications Current Medications Glipizide (Glucotrol) 5 mg BIDAC PO Last administered on 09/15/17at 06:42; Start 09/13/17 at 16:00 Levothyroxine Sodium (Synthroid) 100 mcg DAILY@0600 PO Last administered on 09/16at 05:55; Start 09/14/17 at 06:00 Meclizine HCl (Antivert) 12.5 mg Q8HR PRN PO VERTIGO; Start 09/13/17 at 15:00 Oxycodone/ Acetaminophen (Percocet 5-325 Mg) 1 tab Q6HR PRN PO PAIN; Start 09/13/17 at 15:00 Paroxetine HCl (Paxil) 20 mg DAILY PO Last administered on 09/16/17at 09:14; Start 09/14/17 at 09:00 Propranolol HCl (Inderal) 20 mg Q12HR PO Last administered on 09/15/17at 20:40; Start 09/13/17 at 21:00; Stop 09/16/17 at 09:03; Status DC Pantoprazole Sodium (Protonix) 20 mg DAILY PO Last administered on 09/16/17at 09: 14; Start 09/14/17 at 09:00 Miscellaneous (Pill Splitter) 1 ea UNSCH PRN OTHER SEE LABEL COMMENTS; Start at 15:00 Potassium Chloride/Sodium Chloride 1,000 ml @ 100 mls/hr Q10H IV Last administered on 09/16/17at 02:43; Start 09/13/17 at 14:43; Status Future Hold Docusate Sodium (Colace) 100 mg BID PO Last administered on 09/16/17at 09:13; Start 09/13/17 at 21:00 Ondansetron HCl (Zofran Inj) 4 mg Q6HR PRN IV PUSH NAUSEA OR VOMITING; Start at 18:00 Labetalol HCl (Trandate Inj) 10 mg Q1H PRN IV SYS BP GREATER THAN 160 MMHG Last administered on 09/16/17at 11:24; Start 09/13/17 at 15:00 Enalaprilat (Vasotec Inj) 1.25 mg Q8HR IV PUSH Last administered on 09/16/17at 14 :35; Start 09/13/17 at 22:00 Dextrose (D50w (Vial) Inj) 50 ml UNSCH PRN IV PUSH HYPOGLYCEMIA-SEE COMMENTS; Start 09/13/17 at 15:15 Glucagon (Glucagon Inj) 1 mg UNSCH PRN OTHER HYPOGLYCEMIA-SEE COMMENTS; Start 09/13/17 at 15:15 Insulin Human Regular (NovoLIN R SUPPLEMENTAL SCALE) 1 ACHS SLIDING SCALE SQ Last administered on 09/14/17at 21:00; Start 09/13/17 at 17:00 Dexmedetomidine HCl 200 mcg/ Sodium Chloride 52 ml @ 3.39 mls/hr TITRATE PRN IV SEDATION Last administered on 09/14/17at 04:08; Start 09/14/17 at 04:00; Stop at 19:39; Status DC Dexmedetomidine HCl 400 mcg/ Sodium Chloride 100 ml @ 3.26 mls/hr TITRATE PRN IV SEDATION Last administered on 09/16/17at 06:26; Start 09/14/17 at 19:45 Propranolol HCl (Inderal) 20 mg Q8HR PO Last administered on 09/16/17at 14:35; Start 09/16/17 at 14:00 (Jerry Morley MD) Medical Decision Making MDM Remarks 77 y/o female 1. Traumatic brain injury with left frontotemporoparietal acute subdural hematoma, stable f/u CT Head 09/14/17 2. Occipital skull fracture-close nondepressed 3. Hypertension 4. Diabetes 5. Anxiety disorder 6. GERD (Yee Zaragoza) Plan Plan Remarks cont nonoperative mgt cont close neuro checks nonchemical dvt prophylaxis in view of acute ICH Protonix for tress ulcer prophylaxis critical care following, appreciate assistance (Yee Zaragoza) Attending Statement Neuro. Continue neuro checks in a serial fashion. Nonoperative management of head injury Pulmonary. Continue aggressive pulmonary toilette, nasotracheal suction, and breathing treatments with nebulizers. Daily PT and OT Nutrition. Tolerating Oral diet Renal. Continue to monitor closely urine output, BUN and creatinine Endocrine. Continue to Monitor serial Acu checks and SSI as needed in detail ID continue to monitor for signs of infection Continue Protonix for stress ulcer prophylaxis Continue Darius hose and SCD's for DVT prophylaxis The exam, history, and the medical decision-making described in the above note were completed with the assistance of the mid-level provider. I reviewed and agree with the findings presented. I attest that I had a [id number] encounter with the patient on the same day, and personally performed and documented my assessment and findings in the medical record. (Jerry Morley MD) Yee Zaragoza Sep 15, 2017 12:39 Jerry Morley MD Sep 16, 2017 14:44
--- NOTE | 2017-09-15 14:27 | HHI.CCPN ---
Subjective Remarks/Hospital Course 09/13: 77-year-old female. Date of admission 09/13/2017. Date of consultation 09/14/2017. Past medical history includes anxiety, hypertension, gastroesophageal reflux disease, diabetes and hypothyroidism. Previous history of fall 08/26. At that time, she was diagnosed with A right orbital floor fracture with some swelling around the right frontal bone and orbit was noted on maxillofacial CT scan. Today, she is cleaning out her garage. She was fell down. Checks her head. No loss of consciousness. She had no headache, nausea or emesis. No seizure activity reported. She denies any neck or low back pain. No nausea or vomiting. No dizziness or vertigo. No blurred vision or diplopia. CT brain revealed right subgaleal hematoma, left subdural and subarachnoid hemorrhage. Patient was admitted under the care of Dr. Burgess. On 09/13, patient become more agitated. We are asked to patient regards to agitation so she can repeat head CT. Patient is currently arousable but not following commands. Moving all 4 extremity spontaneously. 09/14, 09/15: Remains on Precedex drip. Gets agitated on titrating down Precedex. Objective Vital Signs Date Time Temp Pulse Resp B/P (MAP) Pulse Ox O2 Delivery O2 Flow Rate FiO2 09/15/17 12:00 82 09/15/17 11:00 99.0 22 157/72 (100) 96 09/15/17 08:18 21 09/13/17 15:34 Room Air Intake and Output 09/15/17 09/15/17 09/16/17 08:00 16:00 00:00 Intake Total 1421 ml Balance 1421 ml Result Diagram: 09/14/17 0505 09/14/17 0505 Imaging Last Impressions Head CT 09/13/17 1307 Signed Impressions: Service Date/Time: September 13:56 - CONCLUSION: 1. Acute subdural hematoma along the left frontal, parietal and temporal lobes measuring 5 mm in greatest width. Acute subarachnoid hemorrhage is also noted throughout the left frontal lobe and scattered petechial hemorrhages are also noted within left frontal lobe. There is 4 mm of subfalcine herniation to the right. 2. Acute fracture mild right occipital skull as well as subgaleal hematoma along the right occipital and posterior parietal skull. Mike Laguna MD Cervical Spine CT 09/13/17 [id number] Signed Impressions: Service Date/Time: September 13:56 - CONCLUSION: 1. Acute fracture involving right occipital skull base. 2. No definite acute fracture or prevertebral soft tissue swelling within the cervical spine. 3. Mild spinal stenosis at C3-4 and C5-6. 4. Moderate bilateral foraminal narrowing at C5-6, moderate left neuroforaminal at C6-7 and moderate right neural foraminal narrowing at C3-4. 5. Diffuse cervical spondylosis from C2 through C7. 6. Degenerative changes and scoliosis of the cervical spine. Mike Laguna MD Objective Remarks GENERAL: 77-year-old female currently resting in bed in no acute distress SKIN: Warm and dry. HEAD: May right orbital rim fracture and currently the nondisplaced right occipital fracture EYES: Pupils equal and round. About 3 Espinoza's bilaterally and reactive No scleral icterus. No injection or drainage. ENT: No nasal bleeding or discharge. Mucous membranes pink and moist. NECK: Trachea midline. No JVD. CARDIOVASCULAR: Regular rate and rhythm. RESPIRATORY: No accessory muscle use. Clear to auscultation. Breath sounds equal bilaterally. GASTROINTESTINAL: Abdomen soft, non-tender, nondistended. Hepatic and splenic margins not palpable. MUSCULOSKELETAL: Extremities without clubbing, cyanosis, or edema. No obvious deformities. NEUROLOGICAL: Awake and alert. No obvious cranial nerve deficits. Motor grossly normal. Moving all 4 extremities spontaneously but not currently to command. A/P Assessment and Plan Neuro/Psych: Left frontotemporal parietal acute subdural hematoma Left frontal subarachnoid hemorrhage Right occipital nondisplaced skull fracture Right parietal occipital subcutaneous galeal hematoma C3 through C6 moderate canal stenosis and C5 to C7 moderate bilateral foraminal stenosis Depression/anxiety Chronic narcotic use Continue paroxetine 20 mg by mouth daily home medication for depression/anxiety Continue oxycodone/acetaminophen 5/325 one tablet every [address] brain 09/13 - 4mm maximum thickness left frontotemporoparietal acute subdural hematoma with mild to moderate mass effect, approximate 4 mm midline shift which is mostly confined to the left frontal region. Small amount of subarachnoid hemorrhage and contusion in the left frontal lobe is noted. There is a right occipital nondisplaced skull fracture. Right parieto-occipital subgaleal hematoma. Cervical spine CT scan 09/13/2017 i-n mild to moderate diffuse degenerative changes with mild C3 4 and moderate C5 6 canal stenosis and moderate bilateral C5 6 and C6 7 foraminal stenosis. No evidence of significant cord compression. No acute fracture or subluxation. The occipital bone fracture is noted. Currently on dexmedetomidine due to agitation, attempt to titrate down. Goal RASS 0 Repeat neuro imaging per neurosurgery. CV: Hypertension Currently on one half normal saline with KCl 100 cc an hour Currently on propranolol 20 mg by mouth daily Currently on scheduled enalaprilat 1.25 mg every 8 hours As needed labetalol 10 mg every hour's as needed systolic pressure is 160 Resp: Nasal cannula to maintain saturations greater than equal to 92% Incentive spirometry while awake GI: Gastroesophageal reflux disease Currently on pantoprazole 20 mg by mouth daily. On omeprazole 20 mg by mouth daily at home for gastroesophageal reflux disease Docusate sodium 100 mg by mouth twice a day for bowel regimen : No indication for Watts catheter Endo: Diabetes mellitus Hypothyroidism Currently in glipizide 5 mg twice a day and Novulin R SSI with Accu-Cheks before meals/at bedtime to maintain euglycemia/low regimen Continue levothyroxine 100 mcg by mouth daily for hypothyroidism Renal: Creatinine currently within normal limits Monitor urine output Accurate I's and O's Heme: CBC within normal limits Does not be transfusion thresholds at this time Coags normal ID: Monitor for infection FEN: Replace electrolytes as clinically indicated MSK: PT evaluate and treat Access - Utilize peripheral IVs. Central line if indicated Prophylaxis - GI - pantoprazole - DVT - SCD/holding pharmacological prophylaxis until okay with neurosurgery Lio Dan MD Sep 15, 2017 14:27
[2017-09-16] VITALS (14 sets, daily range): BP systolic 140–173; BP diastolic 66–78; PULSE 62–76; RESP 18–28; TEMP 98.1–98.6; O2SAT 96–100
[2017-09-16] MEDS: 1/2 NS + KCL 20 MEQ INJ 1,000 ML IV SCH (02:43)
[2017-09-16 04:20] LABS: AUTOMATED NEUTROPHIL # 9.2 TH/MM3 (1.8-7.7); BASOPHIL # 0.1 TH/MM3 (0-0.2); BASOPHIL % 0.7 % (0.0-2.0); EOSINOPHIL # 0.1 TH/MM3 (0-0.4); EOSINOPHIL % 1.3 % (0.0-4.0); HEMATOCRIT 27.2 % (35.0-46.0); HEMOGLOBIN 9.4 GM/DL (11.6-15.3); LYMPH % 12.2 % (9.0-44.0); LYMPHOCYTE # 1.4 TH/MM3 (1.0-4.8); MEAN CELL VOLUME 82.1 FL (80.0-100.0); MEAN CORPUSCULAR HEMOGLOBIN 28.5 PG (27.0-34.0); MEAN CORPUSCULAR HGB CONC 34.7 % (32.0-36.0); MEAN PLATELET VOLUME 8.4 FL (7.0-11.0); MONO % 6.9 % (0.0-8.0); MONOCYTE # 0.8 TH/MM3 (0-0.9); NEUT % 78.9 % (16.0-70.0); PLATELET COUNT 197 TH/MM3 (150-450); RED BLOOD COUNT 3.31 MIL/MM3 (4.00-5.30); RED CELL DISTRIBUTION WIDTH 14.5 % (11.6-17.2); WHITE BLOOD COUNT 11.6 TH/MM3 (4.0-11.0)
[2017-09-16 04:55] LABS: ALBUMIN 2.5 GM/DL (3.4-5.0); ALKALINE PHOSPHATASE 67 U/L (45-117); ALT (GPT) 19 U/L (10-53); AST (GOT) 31 U/L (15-37); BLOOD UREA NITROGEN 12 MG/DL (7-18); CALCIUM 7.9 MG/DL (8.5-10.1); CHLORIDE 98 MEQ/L (98-107); CREATININE 0.67 MG/DL (0.50-1.00); GLOMERULAR FILTRATION RATE 85 ML/MIN (>89); GLUCOSE,RANDOM 120 MG/DL (74-106); SODIUM (NA) 129 MEQ/L (136-145); TOTAL BILIRUBIN ADULT 0.8 MG/DL (0.2-1.0); TOTAL PROTEIN 6.2 GM/DL (6.4-8.2)
[2017-09-16] MEDS: ENALAPRILAT 1.25 MG/ML VIAL IV PUSH SCH ×3 (05:55→22:05)
[2017-09-16] MEDS: LEVOTHYROXINE SODIUM 100 MCG TAB PO SCH (05:55)
[2017-09-16] MEDS: glipiZIDE 5 MG TAB PO SCH ×2 (05:56→16:00)
[2017-09-16] MEDS: DEXMEDETOMIDINE INJ 400 MCG in SODIUM CHLORIDE 0.9% INJ 96 ML IV PRN (06:26)
[2017-09-16] MEDS: INSULIN NovoLIN REGULAR SUPPLEMENTAL SCALE SQ SCH ×4 (08:00→21:00)
[2017-09-16] MEDS: DOCUSATE SODIUM 100 MG CAP PO SCH ×2 (09:13→21:00)
[2017-09-16] MEDS: PANTOPRAZOLE SOD 20 MG DELAYED RELEASE TAB PO SCH (09:14)
[2017-09-16] MEDS: PARoxetine HCL 20 MG TAB PO SCH (09:14)
[2017-09-16] MEDS: LABETALOL HCL 100 MG/20 ML VIAL IV PRN (11:24)
--- NOTE | 2017-09-16 11:53 | HHI.NSPN ---
(Yee Zaragoza) Note Status Status: Progress Note (Yee Zaragoza) Interval History Interval History 09/13: 77-year-old female who previously presented to the emergency room on 08/16 after falling at home after she tripped while going to her mailbox. She struck the right side of the face without loss of consciousness. In the emergency room she was noted to have right periorbital ecchymosis. A right orbital floor fracture with some swelling around the right frontal bone and orbit was noted on maxillofacial CT scan. She fell again today for cleaning out her garage. She states that she was down on her knees and only fell forward slightly. She actually does remember hitting her head. Again no definite loss of consciousness but was noted to be somewhat confused at the scene. She presented to the emergency room at [facility] without significant headache and no nausea or emesis. No seizure activity reported. She denies any neck or low back pain. No nausea or vomiting. No dizziness or vertigo. No blurred vision or diplopia. 09/14: The patient is lethargic when seen but does have dexmedetomidine infusing for sedation. She briefly arouses to noxious stimulation. Her speech is soft and muffled. She is confused. She does move all extremities spontaneously and to command but not appropriately. She does not seem to comprehend some of what is being said to her. She did deny any headache, dizziness or nausea. Nursing reports that without the dexmedetomidine the patient is extremely agitated. She was oriented to person only for Nursing but did follow commands and was moving everything. 09/15: becomes very agitated, on Precedex. opens eyes and moves all four. 09/16: arouses, confused, oriented to name only, becomes restless in bed, on four point restraints. she does deny headaches, nausea, or vomiting. no reports of seizures overnight. (Yee Zaragoza) Labs, Micro, & Vital Signs Results Date Time Temp Pulse Resp B/P (MAP) Pulse Ox O2 Delivery O2 Flow Rate FiO2 09/16/17 08:03 96 21 09/16/17 06:00 68 09/16/17 04:00 70 09/16/17 04:00 98.5 72 28 151/69 (96) 96 09/16/17 02:00 76 09/16/17 00:00 72 09/16/17 00:00 98.6 72 23 140/66 (90) 96 09/15/17 22:00 78 09/15/17 20:00 98.9 81 26 140/90 (107) 97 09/15/17 20:00 79 09/15/17 19:48 98 21 09/15/17 18:00 84 09/15/17 16:00 72 09/15/17 15:00 98.7 70 24 151/68 (95) 97 09/15/17 14:00 68 09/15/17 12:00 82 Constitutional Vital Signs Date Time Temp Pulse Resp B/P (MAP) Pulse Ox O2 Delivery O2 Flow Rate FiO2 09/16/17 08:03 96 21 09/16/17 06:00 68 09/16/17 04:00 70 09/16/17 04:00 98.5 72 28 151/69 (96) 96 09/16/17 02:00 76 09/16/17 00:00 72 09/16/17 00:00 98.6 72 23 140/66 (90) 96 09/15/17 22:00 78 09/15/17 20:00 98.9 81 26 140/90 (107) 97 09/15/17 20:00 79 09/15/17 19:48 98 21 09/15/17 18:00 84 09/15/17 16:00 72 09/15/17 15:00 98.7 70 24 151/68 (95) 97 09/15/17 14:00 68 09/15/17 12:00 82 (Yee Zaragoza) Review of Systems ROS Limitations: Clinical Condition (confused) Gastrointestinal: DENIES: Nausea, Vomiting Neurologic: DENIES: Headache (Yee Zaragoza) Physical Exam Lethargic, on Precedex. CN: pupils equal, facial motor grossly symmetric Motor: reports to move all four extremities Neck: soft, supple (Yee Zaragoza) Ms Hermosillo is Lethargic, on Precedex. Cranial nerve examination: pupils to be equal, round and reactive to light. Extra-ocular movements are intact. Facial motor and sensory function are normal and symmetrical. Gross hearing appears intact. Sternocleidomastoid and trapezius muscles are symmetrical. Other cranial nerves are intact. Neck is soft and supple with a good range of motion without pain. Muscle strength is normal in all muscle groups of both upper and lower extremities. Sensory examination is intact to light touch and pin prick in both the upper and lower extremities. Deep tendon reflexes are symmetrical in both upper and lower extremities. There is a bilateral plantar flexion response. Cerebellar examination is unremarkable (Jerry Morley MD) Medications Current Medications Current Medications Medications (Trade) Dose Ordered Sig/Miguel Route PRN Reason Start Time Stop Time Status Last Admin Dose Admin Glipizide (Glucotrol) 5 mg BIDAC PO 09/13/17 16:00 09/15/17 06:42 Levothyroxine Sodium (Synthroid) 100 mcg DAILY@0600 PO 09/14/17 06:00 09/16/17 05:55 Meclizine HCl (Antivert) 12.5 mg Q8HR PRN PO VERTIGO 09/13/17 15:00 Oxycodone/ Acetaminophen (Percocet 5-325 Mg) 1 tab Q6HR PRN PO PAIN 09/13/17 15:00 Paroxetine HCl (Paxil) 20 mg DAILY PO 09/14/17 09:00 09/16/17 09:14 Pantoprazole Sodium (Protonix) 20 mg DAILY PO 09/14/17 09:00 09/16/17 09:14 Miscellaneous (Pill Splitter) 1 ea UNSCH PRN OTHER SEE LABEL COMMENTS 09/13/17 15:00 Potassium Chloride/Sodium Chloride 1,000 ml @ 100 mls/hr Q10H IV 09/13/17 14:43 Future Hold 09/16/17 02:43 Docusate Sodium (Colace) 100 mg BID PO 09/13/17 21:00 09/16/17 09:13 Ondansetron HCl (Zofran Inj) 4 mg Q6HR PRN IV PUSH NAUSEA OR VOMITING 09/13/17 18:00 Labetalol HCl (Trandate Inj) 10 mg Q1H PRN IV SYS BP GREATER THAN 160 MMHG 09/13/17 15:00 09/16/17 11:24 Enalaprilat (Vasotec Inj) 1.25 mg Q8HR IV PUSH 09/13/17 22:00 09/15/17 22:27 Dextrose (D50w (Vial) Inj) 50 ml UNSCH PRN IV PUSH HYPOGLYCEMIA-SEE COMMENTS 09/13/17 15:15 Glucagon (Glucagon Inj) 1 mg UNSCH PRN OTHER HYPOGLYCEMIA-SEE COMMENTS 09/13/17 15:15 Insulin Human Regular (NovoLIN R SUPPLEMENTAL SCALE) 1 ACHS SLIDING SCALE SQ 09/13/17 17:00 09/14/17 21:00 Dexmedetomidine HCl 400 mcg/ Sodium Chloride 100 ml @ 3.26 mls/hr TITRATE PRN IV SEDATION 09/14/17 19:45 09/16/17 06:26 Propranolol HCl (Inderal) 20 mg Q8HR PO 09/16/17 14:00 (Yee Zaragoza) Current Medications Current Medications Glipizide (Glucotrol) 5 mg BIDAC PO Last administered on 09/15/17at 06:42; Start 09/13/17 at 16:00 Levothyroxine Sodium (Synthroid) 100 mcg DAILY@0600 PO Last administered on 09/16at 05:55; Start 09/14/17 at 06:00 Meclizine HCl (Antivert) 12.5 mg Q8HR PRN PO VERTIGO; Start 09/13/17 at 15:00 Oxycodone/ Acetaminophen (Percocet 5-325 Mg) 1 tab Q6HR PRN PO PAIN; Start 09/13/17 at 15:00 Paroxetine HCl (Paxil) 20 mg DAILY PO Last administered on 09/16/17at 09:14; Start 09/14/17 at 09:00 Propranolol HCl (Inderal) 20 mg Q12HR PO Last administered on 09/15/17at 20:40; Start 09/13/17 at 21:00; Stop 09/16/17 at 09:03; Status DC Pantoprazole Sodium (Protonix) 20 mg DAILY PO Last administered on 09/16/17at 09: 14; Start 09/14/17 at 09:00 Miscellaneous (Pill Splitter) 1 ea UNSCH PRN OTHER SEE LABEL COMMENTS; Start at 15:00 Potassium Chloride/Sodium Chloride 1,000 ml @ 100 mls/hr Q10H IV Last administered on 09/16/17at 02:43; Start 09/13/17 at 14:43; Status Future Hold Docusate Sodium (Colace) 100 mg BID PO Last administered on 09/16/17at 09:13; Start 09/13/17 at 21:00 Ondansetron HCl (Zofran Inj) 4 mg Q6HR PRN IV PUSH NAUSEA OR VOMITING; Start at 18:00 Labetalol HCl (Trandate Inj) 10 mg Q1H PRN IV SYS BP GREATER THAN 160 MMHG Last administered on 09/16/17at 11:24; Start 09/13/17 at 15:00 Enalaprilat (Vasotec Inj) 1.25 mg Q8HR IV PUSH Last administered on 09/16/17at 14 :35; Start 09/13/17 at 22:00 Dextrose (D50w (Vial) Inj) 50 ml UNSCH PRN IV PUSH HYPOGLYCEMIA-SEE COMMENTS; Start 09/13/17 at 15:15 Glucagon (Glucagon Inj) 1 mg UNSCH PRN OTHER HYPOGLYCEMIA-SEE COMMENTS; Start 09/13/17 at 15:15 Insulin Human Regular (NovoLIN R SUPPLEMENTAL SCALE) 1 ACHS SLIDING SCALE SQ Last administered on 09/14/17at 21:00; Start 09/13/17 at 17:00 Dexmedetomidine HCl 200 mcg/ Sodium Chloride 52 ml @ 3.39 mls/hr TITRATE PRN IV SEDATION Last administered on 09/14/17at 04:08; Start 09/14/17 at 04:00; Stop at 19:39; Status DC Dexmedetomidine HCl 400 mcg/ Sodium Chloride 100 ml @ 3.26 mls/hr TITRATE PRN IV SEDATION Last administered on 09/16/17at 06:26; Start 09/14/17 at 19:45 Propranolol HCl (Inderal) 20 mg Q8HR PO Last administered on 09/16/17at 14:35; Start 09/16/17 at 14:00 (Jerry Morley MD) Medical Decision Making MDM Remarks 77 y/o female 1. Traumatic brain injury with left frontotemporoparietal acute subdural hematoma, stable f/u CT Head 09/14/17 2. Occipital skull fracture-close nondepressed 3. Hypertension 4. Diabetes 5. Anxiety disorder 6. GERD (Yee Zaragoza) MDM Remarks Medical Decision Making MDM Remarks 77 y/o female 1. Traumatic brain injury with left frontotemporoparietal acute subdural hematoma, stable f/u CT Head 09/14/17 2. Occipital skull fracture-close nondepressed 3. Hypertension 4. Diabetes 5. Anxiety disorder 6. GERD (Jerry Morley MD) Plan Plan Remarks cont nonoperative mgt cont close neuro checks nonchemical dvt prophylaxis in view of acute ICH Protonix for tress ulcer prophylaxis critical care following, appreciate assistance (Yee Zaragoza) Plan Remarks Neuro. Continue neuro checks in a serial fashion. Nonoperative management of head injury Pulmonary. Continue aggressive pulmonary toilette, nasotracheal suction, and breathing treatments with nebulizers. Daily PT and OT Nutrition. Tolerating Oral diet Renal. Continue to monitor closely urine output, BUN and creatinine Endocrine. Continue to Monitor serial Acu checks and SSI as needed in detail ID continue to monitor for signs of infection Continue Protonix for stress ulcer prophylaxis Continue Darius hose and SCD's for DVT prophylaxis The exam, history, and the medical decision-making described in the above note were completed with the assistance of the mid-level provider. I reviewed and agree with the findings presented. I attest that I had a [id number] encounter with the patient on the same day, and personally performed and documented my assessment and findings in the medical record. (Jerry Morley MD) Yee Zaragoza Sep 16, 2017 11:53 Jerry Morley MD Sep 16, 2017 15:00
[2017-09-16] MEDS: PROPRANOLOL HCL 20 MG TAB PO SCH ×2 (14:35→22:05)
--- NOTE | 2017-09-16 19:38 | HHI.CCPN ---
Subjective Remarks/Hospital Course 09/13: 77-year-old female. Date of admission 09/13/2017. Date of consultation 09/14/2017. Past medical history includes anxiety, hypertension, gastroesophageal reflux disease, diabetes and hypothyroidism. Previous history of fall 08/26. At that time, she was diagnosed with A right orbital floor fracture with some swelling around the right frontal bone and orbit was noted on maxillofacial CT scan. Today, she is cleaning out her garage. She was fell down. Checks her head. No loss of consciousness. She had no headache, nausea or emesis. No seizure activity reported. She denies any neck or low back pain. No nausea or vomiting. No dizziness or vertigo. No blurred vision or diplopia. CT brain revealed right subgaleal hematoma, left subdural and subarachnoid hemorrhage. Patient was admitted under the care of Dr. Burgess. On 09/13, patient become more agitated. We are asked to patient regards to agitation so she can repeat head CT. Patient is currently arousable but not following commands. Moving all 4 extremity spontaneously. 09/14, 09/15: Remains on Precedex drip. Gets agitated on titrating down Precedex. 09/16: remains on precedex drip, although now at 0.25 mcg/kg/hr. still confused and CAM +, but much calmer and now RASS 0. sodium dropped significantly to 127 today: have ordered serum osms, urine osms, urine sodium, and urine SG. repeat and trend sodiums. Objective Vital Signs Date Time Temp Pulse Resp B/P (MAP) Pulse Ox O2 Delivery O2 Flow Rate FiO2 09/16/17 12:00 72 09/16/17 08:03 96 21 09/16/17 04:00 98.5 28 151/69 (96) 09/13/17 15:34 Room Air Intake and Output 09/16/17 09/16/17 09/17/17 08:00 16:00 00:00 Intake Total 3537 ml Balance 3537 ml Result Diagram: 09/16/17 0411 09/16/17 041 Imaging Last Impressions Head CT 09/13/17 1307 Signed Impressions: Service Date/Time: September 13:56 - CONCLUSION: 1. Acute subdural hematoma along the left frontal, parietal and temporal lobes measuring 5 mm in greatest width. Acute subarachnoid hemorrhage is also noted throughout the left frontal lobe and scattered petechial hemorrhages are also noted within left frontal lobe. There is 4 mm of subfalcine herniation to the right. 2. Acute fracture mild right occipital skull as well as subgaleal hematoma along the right occipital and posterior parietal skull. Mike Laguna MD Cervical Spine CT 09/13/17 1307 Signed Impressions: Service Date/Time: September 13:56 - CONCLUSION: 1. Acute fracture involving right occipital skull base. 2. No definite acute fracture or prevertebral soft tissue swelling within the cervical spine. 3. Mild spinal stenosis at C3-4 and C5-6. 4. Moderate bilateral foraminal narrowing at C5-6, moderate left neuroforaminal at C6-7 and moderate right neural foraminal narrowing at C3-4. 5. Diffuse cervical spondylosis from C2 through C7. 6. Degenerative changes and scoliosis of the cervical spine. Mike Laguna MD Objective Remarks GENERAL: 77-year-old female currently resting in bed in no acute distress SKIN: Warm and dry. EYES: Pupils equal and round. No scleral icterus. No injection or drainage. ENT: No nasal bleeding or discharge. Mucous membranes pink and moist. NECK: Trachea midline. No JVD. CARDIOVASCULAR: Regular rate and rhythm. RESPIRATORY: No accessory muscle use. equal chest rise. GASTROINTESTINAL: Abdomen soft, non-tender, nondistended. Hepatic and splenic margins not palpable. MUSCULOSKELETAL: Extremities without clubbing, cyanosis, or edema. No obvious deformities. NEUROLOGICAL: Awake and alert. No obvious cranial nerve deficits. Motor grossly normal. Moving all 4 extremities spontaneously but not currently to command. A/P Assessment and Plan Neuro/Psych: Left frontotemporal parietal acute subdural hematoma Left frontal subarachnoid hemorrhage Right occipital nondisplaced skull fracture Right parietal occipital subcutaneous galeal hematoma C3 through C6 moderate canal stenosis and C5 to C7 moderate bilateral foraminal stenosis Depression/anxiety Chronic narcotic use Continue paroxetine 20 mg by mouth daily home medication for depression/anxiety Continue oxycodone/acetaminophen 5/325 one tablet every [address] brain 09/13 - 4mm maximum thickness left frontotemporoparietal acute subdural hematoma with mild to moderate mass effect, approximate 4 mm midline shift which is mostly confined to the left frontal region. Small amount of subarachnoid hemorrhage and contusion in the left frontal lobe is noted. There is a right occipital nondisplaced skull fracture. Right parieto-occipital subgaleal hematoma. Cervical spine CT scan 09/13/2017 i-n mild to moderate diffuse degenerative changes with mild C3 4 and moderate C5 6 canal stenosis and moderate bilateral C5 6 and C6 7 foraminal stenosis. No evidence of significant cord compression. No acute fracture or subluxation. The occipital bone fracture is noted. Currently on dexmedetomidine due to agitation, attempt to titrate down. Goal RASS 0 Repeat neuro imaging per neurosurgery. CV: Hypertension hold 1/2 NS. Currently on propranolol 20 mg by mouth daily Currently on scheduled enalaprilat 1.25 mg every 8 hours As needed labetalol 10 mg every hour's as needed systolic pressure is 160 Resp: Nasal cannula to maintain saturations greater than equal to 92% Incentive spirometry while awake GI: Gastroesophageal reflux disease Currently on pantoprazole 20 mg by mouth daily. On omeprazole 20 mg by mouth daily at home for gastroesophageal reflux disease Docusate sodium 100 mg by mouth twice a day for bowel regimen : No indication for Watts catheter Endo: Diabetes mellitus Hypothyroidism Currently in glipizide 5 mg twice a day and Novulin R SSI with Accu-Cheks before meals/at bedtime to maintain euglycemia/low regimen Continue levothyroxine 100 mcg by mouth daily for hypothyroidism Renal: Creatinine currently within normal limits Monitor urine output Accurate I's and O's Heme: CBC within normal limits Does not be transfusion thresholds at this time Coags normal ID: Monitor for infection FEN: Hyponatremia Replace electrolytes as clinically indicated unclear etiology of hyponatremia: precedex can cause an SIADH-like syndrome. check urine and serum osms, urine sodium, urine SG. recheck and trend sodium. hold 1/2 NS. mental status is improved from yesterday, unlikely to be acutely affected by dropping sodium. MSK: PT evaluate and treat Access - Utilize peripheral IVs. Central line if indicated Prophylaxis - GI - pantoprazole - DVT - SCD/holding pharmacological prophylaxis until okay with neurosurgery Chirag Swenson MD Sep 16, 2017 19:38
[2017-09-17] VITALS (15 sets, daily range): BP systolic 148–192; BP diastolic 67–88; PULSE 56–68; RESP 18–22; TEMP 97–98.6; O2SAT 95–100
[2017-09-17 03:53] LABS: HEMATOCRIT 28.7 % (35.0-46.0); HEMOGLOBIN 9.9 GM/DL (11.6-15.3); MEAN CELL VOLUME 81.9 FL (80.0-100.0); MEAN CORPUSCULAR HEMOGLOBIN 28.2 PG (27.0-34.0); MEAN CORPUSCULAR HGB CONC 34.5 % (32.0-36.0); PLATELET COUNT 192 TH/MM3 (150-450); RED BLOOD COUNT 3.51 MIL/MM3 (4.00-5.30); RED CELL DISTRIBUTION WIDTH 14.2 % (11.6-17.2); WHITE BLOOD COUNT 9.4 TH/MM3 (4.0-11.0)
[2017-09-17] MEDS: LABETALOL HCL 100 MG/20 ML VIAL IV PRN ×5 (04:03→11:57)
[2017-09-17 04:16] LABS: BICARBONATE 21.2 MEQ/L (21.0-32.0); CALCIUM 7.8 MG/DL (8.5-10.1); CREATININE 0.55 MG/DL (0.50-1.00)
[2017-09-17] MEDS: PROPRANOLOL HCL 20 MG TAB PO SCH ×3 (05:15→22:06)
[2017-09-17] MEDS: ENALAPRILAT 1.25 MG/ML VIAL IV PUSH SCH ×3 (05:15→22:07)
[2017-09-17] MEDS: LEVOTHYROXINE SODIUM 100 MCG TAB PO SCH (05:15)
[2017-09-17] MEDS: glipiZIDE 5 MG TAB PO SCH ×2 (05:15→18:14)
[2017-09-17] MEDS: DEXMEDETOMIDINE INJ 400 MCG in SODIUM CHLORIDE 0.9% INJ 96 ML IV PRN (06:21)
[2017-09-17] MEDS: INSULIN NovoLIN REGULAR SUPPLEMENTAL SCALE SQ SCH ×4 (08:00→21:00)
[2017-09-17] MEDS: DOCUSATE SODIUM 100 MG CAP PO SCH ×2 (09:54→21:00)
[2017-09-17] MEDS: PARoxetine HCL 20 MG TAB PO SCH (09:54)
[2017-09-17] MEDS: PANTOPRAZOLE SOD 20 MG DELAYED RELEASE TAB PO SCH (09:54)
--- NOTE | 2017-09-17 11:23 | HHI.NSPN ---
(Brain Rudolphpooja POSADAS) History Chief Complaint: None. (Brain Rudolphpooja POSADAS) Interval History 09/13: 77-year-old female who previously presented to the emergency room on 08/16 after falling at home after she tripped while going to her mailbox. She struck the right side of the face without loss of consciousness. In the emergency room she was noted to have right periorbital ecchymosis. A right orbital floor fracture with some swelling around the right frontal bone and orbit was noted on maxillofacial CT scan. She fell again today for cleaning out her garage. She states that she was down on her knees and only fell forward slightly. She actually does remember hitting her head. Again no definite loss of consciousness but was noted to be somewhat confused at the scene. She presented to the emergency room at [facility] without significant headache and no nausea or emesis. No seizure activity reported. She denies any neck or low back pain. No nausea or vomiting. No dizziness or vertigo. No blurred vision or diplopia. 09/14: The patient is lethargic when seen but does have dexmedetomidine infusing for sedation. She briefly arouses to noxious stimulation. Her speech is soft and muffled. She is confused. She does move all extremities spontaneously and to command but not appropriately. She does not seem to comprehend some of what is being said to her. She did deny any headache, dizziness or nausea. Nursing reports that without the dexmedetomidine the patient is extremely agitated. She was oriented to person only for Nursing but did follow commands and was moving everything. 09/15: becomes very agitated, on Precedex. opens eyes and moves all four. 09/16: arouses, confused, oriented to name only, becomes restless in bed, on four point restraints. she does deny headaches, nausea, or vomiting. no reports of seizures overnight. 09/17: The patient is sitting up with the bed in chair position and talking with a family member. She is in four point restraints. No sedation infusing. She is oriented to person, being in the hospital and month. She does follow simple commands without difficulty and moves all extremities spontaneously. She has been intermittently hypertensive. Nursing reports that the patient doesn't have any PRN medication for hypertension. (Lauri Rudolph) Exam Results 09/15/17 09/15/17 09/16/17 09/16/17 09/17/17 09/17/17 06:00 18:00 06:00 18:00 06:00 18:00 Intake Total 1421 ml 250 ml 3537 ml 360 ml 230 ml Output Total 0 ml Balance 1421 ml 250 ml 3537 ml 360 ml 230 ml Intake Oral 30 ml 250 ml 200 ml 360 ml 100 ml IV Total 1391 ml 3337 ml 130 ml Output Stool Total 0 ml # Voids 4 4 5 6 2 # Bowel Movements 1 3 Vital Signs Date Time Temp Pulse Resp B/P (MAP) Pulse Ox O2 Delivery O2 Flow Rate FiO2 09/17/17 07:36 97 21 09/17/17 06:28 61 09/17/17 04:08 65 09/17/17 04:08 97.6 58 18 175/78 (110) 95 09/17/17 02:22 62 09/17/17 00:37 148/67 (94) 09/17/17 00:09 65 09/17/17 00:09 98.1 58 20 161/75 (103) 98 09/16/17 22:00 69 09/16/17 20:47 97 21 09/16/17 20:00 76 09/16/17 20:00 98.4 76 18 153/74 (100) 98 09/16/17 18:00 66 09/16/17 16:00 62 09/16/17 16:00 98.1 62 23 161/74 (103) 100 09/16/17 14:00 68 09/16/17 12:00 98.1 72 24 173/77 (109) 100 09/16/17 12:00 72 09/16/17 10:00 70 09/16/17 08:03 96 21 09/16/17 08:00 98.3 64 20 160/78 (105) 98 09/16/17 08:00 64 09/16/17 06:00 68 09/16/17 04:00 70 09/16/17 04:00 98.5 72 28 151/69 (96) 96 09/16/17 02:00 76 09/16/17 00:00 72 09/16/17 00:00 98.6 72 23 140/66 (90) 96 09/15/17 22:00 78 09/15/17 20:00 98.9 81 26 140/90 (107) 97 09/15/17 20:00 79 09/15/17 19:48 98 21 09/15/17 18:00 84 09/15/17 16:00 72 09/15/17 15:00 98.7 70 24 151/68 (95) 97 09/15/17 14:00 68 09/15/17 12:00 82 09/15/17 11:00 99.0 67 22 157/72 (100) 96 09/15/17 10:00 67 09/15/17 08:18 96 21 09/15/17 08:00 74 09/15/17 07:00 98.5 76 24 167/81 (109) 96 09/15/17 06:00 75 09/15/17 04:00 99.7 85 22 121/76 (91) 96 09/15/17 04:00 85 09/15/17 02:00 98 09/15/17 00:00 99.4 96 20 158/81 (106) 96 09/15/17 00:00 100 09/14/17 22:00 86 09/14/17 20:00 79 09/14/17 20:00 99.4 84 28 158/70 (99) 98 09/14/17 19:48 97 09/14/17 18:00 77 09/14/17 14:00 80 09/14/17 12:00 98.7 79 20 135/71 (92) 99 09/14/17 12:00 79 (Lauri Rudolph) Physical Examination GENERAL: Awake & alert, visiting w/family, in 4-point restraints, no sedation, readily interacts, affect essentially normal, no apparent distress. HEENT: Normocephalic. PERRLA 3 mm reactive. MMM & pink, tongue midline to protrusion. MUSCULOSKELETAL: No evident deformity or clubbing. NEUROLOGICAL: Awake & alert, oriented to person, being in hospital and it being September. Stated 1997 and that Clarence was president. No sedation. Speech is clear and for the most part appropriate. She followed simple commands w/o difficulty. CN II-XII appear grossly intact. Sensation to light touch intact to all extremities. She moves all extremities spontaneously & to command. Motor strength strong to all major flexion & extension muscle groups to all extremities. (Lauri Rudolph) Lab, Micro, Other Results Laboratory Tests Test 09/16/17 04:11 09/16/17 11:01 09/16/17 21:14 09/17/17 03:34 White Blood Count 11.6 TH/MM3 9.4 TH/MM3 Red Blood Count 3.31 MIL/MM3 3.51 MIL/MM3 Hemoglobin 9.4 GM/DL 9.9 GM/DL Hematocrit 27.2 % 28.7 % Mean Corpuscular Volume 82.1 FL 81.9 FL Mean Corpuscular Hemoglobin 28.5 PG 28.2 PG Mean Corpuscular Hemoglobin Concent 34.7 % 34.5 % Red Cell Distribution Width 14.5 % 14.2 % Platelet Count 197 TH/MM3 192 TH/MM3 Mean Platelet Volume 8.4 FL 9.0 FL Neutrophils (%) (Auto) 78.9 % Lymphocytes (%) (Auto) 12.2 % Monocytes (%) (Auto) 6.9 % Eosinophils (%) (Auto) 1.3 % Basophils (%) (Auto) 0.7 % Neutrophils # (Auto) 9.2 TH/MM3 Lymphocytes # (Auto) 1.4 TH/MM3 Monocytes # (Auto) 0.8 TH/MM3 Eosinophils # (Auto) 0.1 TH/MM3 Basophils # (Auto) 0.1 TH/MM3 CBC Comment AUTO DIFF Differential Comment AUTO DIFF CONFIRMED Blood Urea Nitrogen 12 MG/DL 10 MG/DL Creatinine 0.67 MG/DL 0.55 MG/DL Random Glucose 120 MG/DL 143 MG/DL Total Protein 6.2 GM/DL Albumin 2.5 GM/DL Calcium Level 7.9 MG/DL 7.8 MG/DL Alkaline Phosphatase 67 U/L Aspartate Amino Transf (AST/SGOT) 31 U/L Alanine Aminotransferase (ALT/SGPT) 19 U/L Total Bilirubin 0.8 MG/DL Sodium Level 129 MEQ/L 125 MEQ/L 126 MEQ/L Potassium Level 3.7 MEQ/L 3.6 MEQ/L Chloride Level 98 MEQ/L 94 MEQ/L Carbon Dioxide Level 22.0 MEQ/L 21.2 MEQ/L Anion Gap 9 MEQ/L 11 MEQ/L Estimat Glomerular Filtration Rate 85 ML/MIN 107 ML/MIN Serum Osmolality 268 MOSM/KG (Lauri Rudolph) Medical Decision Making Impression and Plan Impression: 1. Traumatic brain injury with left frontotemporoparietal acute subdural hematoma 2. Occipital skull fracture-close nondepressed 3. Hypertension 4. Diabetes 5. Anxiety disorder 6. GERD The patient is doing well and has an improved neurological response. Intermittent hypertension. Reviewed labs for this morning. Interval resolution of leukocytosis. Interval improvement in anaemia. Sodium 126. Renal function WNL. CT brain essentially unchanged. Plan: Critical care management per [employer] Supervisor. Neuro checks. Stat CT brain for any decline in neuro status. Wean sedation as tolerated. Mechanical DVT prophylaxis. Hold pharmacologic DVT prophylaxis. Stress ulcer prophylaxis. Mobilise patient w/assistance. PT eval & tx. Continue present medication for hypertension with additional when necessary medications. Insulin sliding scale. Maintain SBP between 120 and 160 mm Hg. (Lauri Rudolph) Attending Statement The exam, history, and the medical decision-making described in the above note were completed with the assistance of the mid-level provider. I reviewed and agree with the findings presented. I attest that I had a [id number] encounter with the patient on the same day, and personally performed and documented my assessment and findings in the medical record. On examination 09/17/17, patient remains awake and alert Sitting up in a chair. She knows that she is in the hospital Remains moderately confused VELAZQUEZ well No significant neurologic changes Plan follow-up CT scan had later in the week Continue therapy Stable for floor neurosurgical standpoint once agitation resolves (Terrell Burgess MD) Lauri Rudolph Sep 17, 2017 11:23 Terrell Burgess MD Sep 18, 2017 22:57
--- NOTE | 2017-09-17 15:17 | HHI.CCPN ---
Subjective Remarks/Hospital Course 09/13: 77-year-old female. Date of admission 09/13/2017. Date of consultation 09/14/2017. Past medical history includes anxiety, hypertension, gastroesophageal reflux disease, diabetes and hypothyroidism. Previous history of fall 08/26. At that time, she was diagnosed with A right orbital floor fracture with some swelling around the right frontal bone and orbit was noted on maxillofacial CT scan. Today, she is cleaning out her garage. She was fell down. Checks her head. No loss of consciousness. She had no headache, nausea or emesis. No seizure activity reported. She denies any neck or low back pain. No nausea or vomiting. No dizziness or vertigo. No blurred vision or diplopia. CT brain revealed right subgaleal hematoma, left subdural and subarachnoid hemorrhage. Patient was admitted under the care of Dr. Burgess. On 09/13, patient become more agitated. We are asked to patient regards to agitation so she can repeat head CT. Patient is currently arousable but not following commands. Moving all 4 extremity spontaneously. 09/14, 09/15: Remains on Precedex drip. Gets agitated on titrating down Precedex. 09/16: remains on precedex drip, although now at 0.25 mcg/kg/hr. still confused and CAM +, but much calmer and now RASS 0. sodium dropped significantly to 127 today: have ordered serum osms, urine osms, urine sodium, and urine SG. repeat and trend sodiums. 09/17: Stopped Precedex. Patient is awake and alert today. Remains hyponatremic. Tolerating by mouth diet. Objective Vital Signs Date Time Temp Pulse Resp B/P (MAP) Pulse Ox O2 Delivery O2 Flow Rate FiO2 09/17/17 14:00 60 09/17/17 12:00 97.0 22 151/69 (96) 98 09/17/17 07:36 21 09/13/17 15:34 Room Air Intake and Output 09/17/17 09/17/17 09/18/17 08:00 16:00 00:00 Intake Total 230 ml Balance 230 ml Result Diagram: 09/17/17 0334 09/17/17 0334 Imaging Last Impressions Head CT 09/13/17 1307 Signed Impressions: Service Date/Time: September 13:56 - CONCLUSION: 1. Acute subdural hematoma along the left frontal, parietal and temporal lobes measuring 5 mm in greatest width. Acute subarachnoid hemorrhage is also noted throughout the left frontal lobe and scattered petechial hemorrhages are also noted within left frontal lobe. There is 4 mm of subfalcine herniation to the right. 2. Acute fracture mild right occipital skull as well as subgaleal hematoma along the right occipital and posterior parietal skull. Mike Laguna MD Cervical Spine CT 09/13/17 1307 Signed Impressions: Service Date/Time: September 13:56 - CONCLUSION: 1. Acute fracture involving right occipital skull base. 2. No definite acute fracture or prevertebral soft tissue swelling within the cervical spine. 3. Mild spinal stenosis at C3-4 and C5-6. 4. Moderate bilateral foraminal narrowing at C5-6, moderate left neuroforaminal at C6-7 and moderate right neural foraminal narrowing at C3-4. 5. Diffuse cervical spondylosis from C2 through C7. 6. Degenerative changes and scoliosis of the cervical spine. Mike Laguna MD Objective Remarks GENERAL: 77-year-old female currently resting in bed in no acute distress SKIN: Warm and dry. EYES: Pupils equal and round. No scleral icterus. No injection or drainage. ENT: No nasal bleeding or discharge. Mucous membranes pink and moist. NECK: Trachea midline. No JVD. CARDIOVASCULAR: Regular rate and rhythm. RESPIRATORY: No accessory muscle use. equal chest rise. GASTROINTESTINAL: Abdomen soft, non-tender, nondistended. Hepatic and splenic margins not palpable. MUSCULOSKELETAL: Extremities without clubbing, cyanosis, or edema. No obvious deformities. NEUROLOGICAL: Awake and alert. No obvious cranial nerve deficits. Motor grossly normal. Moving all 4 extremities spontaneously A/P Assessment and Plan Neuro/Psych: Left frontotemporal parietal acute subdural hematoma Left frontal subarachnoid hemorrhage Right occipital nondisplaced skull fracture Right parietal occipital subcutaneous galeal hematoma C3 through C6 moderate canal stenosis and C5 to C7 moderate bilateral foraminal stenosis Depression/anxiety Chronic narcotic use Continue paroxetine 20 mg by mouth daily home medication for depression/anxiety Continue oxycodone/acetaminophen 5/325 one tablet every [address] brain 09/13 - 4mm maximum thickness left frontotemporoparietal acute subdural hematoma with mild to moderate mass effect, approximate 4 mm midline shift which is mostly confined to the left frontal region. Small amount of subarachnoid hemorrhage and contusion in the left frontal lobe is noted. There is a right occipital nondisplaced skull fracture. Right parieto-occipital subgaleal hematoma. Cervical spine CT scan 09/13/2017 i-n mild to moderate diffuse degenerative changes with mild C3 4 and moderate C5 6 canal stenosis and moderate bilateral C5 6 and C6 7 foraminal stenosis. No evidence of significant cord compression. No acute fracture or subluxation. The occipital bone fracture is noted. Currently on dexmedetomidine due to agitation, attempt to titrate down. Goal RASS 0 Repeat neuro imaging per neurosurgery. CV: Hypertension hold 1/2 NS. Currently on propranolol 20 mg by mouth daily Currently on scheduled enalaprilat 1.25 mg every 8 hours. Add lisinopril 20 mg by mouth daily and Norvasc 10 mg by mouth daily on 09/17 As needed labetalol 10 mg every hour's as needed systolic pressure is 160 Resp: Nasal cannula to maintain saturations greater than equal to 92% Incentive spirometry while awake GI: Gastroesophageal reflux disease Currently on pantoprazole 20 mg by mouth daily. On omeprazole 20 mg by mouth daily at home for gastroesophageal reflux disease Docusate sodium 100 mg by mouth twice a day for bowel regimen : No indication for Watts catheter Endo: Diabetes mellitus Hypothyroidism Currently in glipizide 5 mg twice a day and Novulin R SSI with Accu-Cheks before meals/at bedtime to maintain euglycemia/low regimen Continue levothyroxine 100 mcg by mouth daily for hypothyroidism Renal: Creatinine currently within normal limits Monitor urine output Accurate I's and O's Heme: CBC within normal limits Does not be transfusion thresholds at this time Coags normal ID: Monitor for infection FEN: Hyponatremia Replace electrolytes as clinically indicated unclear etiology of hyponatremia: precedex can cause an SIADH-like syndrome. check urine and serum osms, urine sodium, urine SG. recheck and trend sodium. hold 1/2 NS. mental status is improved from yesterday, unlikely to be acutely affected by dropping sodium. MSK: PT evaluate and treat Access - Utilize peripheral IVs. Central line if indicated Prophylaxis - GI - pantoprazole - DVT - SCD/holding pharmacological prophylaxis until okay with neurosurgery Lio Dan MD Sep 17, 2017 15:17
[2017-09-17] MEDS: LISINOPRIL 20 MG TAB PO SCH (16:01)
[2017-09-17] MEDS: DEXTROSE 50% IN WATER 50 ML VIAL(D50) IV PUSH PRN ×2 (22:16→22:41)
[2017-09-18] VITALS (14 sets, daily range): BP systolic 115–174; BP diastolic 59–88; PULSE 60–85; RESP 16–35; TEMP 97.4–98.4; O2SAT 94–100
[2017-09-18 05:46] LABS: BICARBONATE 23.1 MEQ/L (21.0-32.0); CALCIUM 8.4 MG/DL (8.5-10.1); CREATININE 0.6 MG/DL (0.50-1.00)
[2017-09-18] MEDS: ENALAPRILAT 1.25 MG/ML VIAL IV PUSH SCH ×3 (05:46→20:49)
[2017-09-18] MEDS: PROPRANOLOL HCL 20 MG TAB PO SCH ×3 (05:46→21:03)
[2017-09-18] MEDS: LEVOTHYROXINE SODIUM 100 MCG TAB PO SCH (05:46)
[2017-09-18 06:39] LABS: HEMATOCRIT 30.5 % (35.0-46.0); HEMOGLOBIN 10.6 GM/DL (11.6-15.3); MEAN CELL VOLUME 80.9 FL (80.0-100.0); MEAN CORPUSCULAR HEMOGLOBIN 28.1 PG (27.0-34.0); MEAN CORPUSCULAR HGB CONC 34.8 % (32.0-36.0); MEAN PLATELET VOLUME 9.5 FL (7.0-11.0); PLATELET COUNT 305 TH/MM3 (150-450); RED BLOOD COUNT 3.77 MIL/MM3 (4.00-5.30); RED CELL DISTRIBUTION WIDTH 14.6 % (11.6-17.2); WHITE BLOOD COUNT 11.3 TH/MM3 (4.0-11.0)
[2017-09-18] MEDS: glipiZIDE 5 MG TAB PO SCH ×2 (07:00→16:00)
[2017-09-18] MEDS: INSULIN NovoLIN REGULAR SUPPLEMENTAL SCALE SQ SCH ×4 (08:00→21:00)
[2017-09-18] MEDS: PARoxetine HCL 20 MG TAB PO SCH ×2 (09:00→09:24)
[2017-09-18] MEDS: DOCUSATE SODIUM 100 MG CAP PO SCH ×2 (09:00→20:50)
[2017-09-18] MEDS: LISINOPRIL 20 MG TAB PO SCH ×2 (09:00→09:24)
[2017-09-18] MEDS: PANTOPRAZOLE SOD 20 MG DELAYED RELEASE TAB PO SCH ×2 (09:00→09:24)
[2017-09-18] MEDS: LABETALOL HCL 100 MG/20 ML VIAL IV PRN ×3 (10:02→21:53)
[2017-09-18] MEDS ORDERED: QUEtiapine FUMARATE 100 MG TAB PO SCH (11:30)
[2017-09-18] MEDS: TOLVAPTAN 15 MG TAB PO ONE ×2 (12:00→12:38)
--- NOTE | 2017-09-18 14:54 | HHI.CCPN ---
Subjective Remarks/Hospital Course 09/13: 77-year-old female. Date of admission 09/13/2017. Date of consultation 09/14/2017. Past medical history includes anxiety, hypertension, gastroesophageal reflux disease, diabetes and hypothyroidism. Previous history of fall 08/26. At that time, she was diagnosed with A right orbital floor fracture with some swelling around the right frontal bone and orbit was noted on maxillofacial CT scan. Today, she is cleaning out her garage. She was fell down. Checks her head. No loss of consciousness. She had no headache, nausea or emesis. No seizure activity reported. She denies any neck or low back pain. No nausea or vomiting. No dizziness or vertigo. No blurred vision or diplopia. CT brain revealed right subgaleal hematoma, left subdural and subarachnoid hemorrhage. Patient was admitted under the care of Dr. Burgess. On 09/13, patient become more agitated. We are asked to patient regards to agitation so she can repeat head CT. Patient is currently arousable but not following commands. Moving all 4 extremity spontaneously. 09/14, 09/15: Remains on Precedex drip. Gets agitated on titrating down Precedex. 09/16: remains on precedex drip, although now at 0.25 mcg/kg/hr. still confused and CAM +, but much calmer and now RASS 0. sodium dropped significantly to 127 today: have ordered serum osms, urine osms, urine sodium, and urine SG. repeat and trend sodiums. 09/17: Stopped Precedex. Patient is awake and alert today. Remains hyponatremic. Tolerating by mouth diet. 09/18: Episodes of agitation. Added Seroquel 100 mg daily today. Awake and alert however not very cooperative and refusing to take meds this morning. Hyponatremia persists. UA still not available. We'll start and is at 50 cc an hour and Samsca 15 mg by mouth 1 dose Objective Vital Signs Date Time Temp Pulse Resp B/P (MAP) Pulse Ox O2 Delivery O2 Flow Rate FiO2 09/18/17 12:00 98.1 68 16 172/88 (116) 98 09/18/17 07:42 21 Intake and Output 09/18/17 09/18/17 09/19/17 08:00 16:00 00:00 Output Total 600 ml Balance -600 ml Result Diagram: 09/18/17 0448 09/18/17 0450 Imaging Last Impressions Head CT 09/13/17 1307 Signed Impressions: Service Date/Time: September 13:56 - CONCLUSION: 1. Acute subdural hematoma along the left frontal, parietal and temporal lobes measuring 5 mm in greatest width. Acute subarachnoid hemorrhage is also noted throughout the left frontal lobe and scattered petechial hemorrhages are also noted within left frontal lobe. There is 4 mm of subfalcine herniation to the right. 2. Acute fracture mild right occipital skull as well as subgaleal hematoma along the right occipital and posterior parietal skull. Mike Laguna MD Cervical Spine CT 09/13/17 1307 Signed Impressions: Service Date/Time: September 13:56 - CONCLUSION: 1. Acute fracture involving right occipital skull base. 2. No definite acute fracture or prevertebral soft tissue swelling within the cervical spine. 3. Mild spinal stenosis at C3-4 and C5-6. 4. Moderate bilateral foraminal narrowing at C5-6, moderate left neuroforaminal at C6-7 and moderate right neural foraminal narrowing at C3-4. 5. Diffuse cervical spondylosis from C2 through C7. 6. Degenerative changes and scoliosis of the cervical spine. Mike Laguna MD Objective Remarks GENERAL: 77-year-old female currently resting in bed in no acute distress SKIN: Warm and dry. EYES: Pupils equal and round. No scleral icterus. No injection or drainage. ENT: No nasal bleeding or discharge. Mucous membranes pink and moist. NECK: Trachea midline. No JVD. CARDIOVASCULAR: Regular rate and rhythm. RESPIRATORY: No accessory muscle use. equal chest rise. GASTROINTESTINAL: Abdomen soft, non-tender, nondistended. Hepatic and splenic margins not palpable. MUSCULOSKELETAL: Extremities without clubbing, cyanosis, or edema. No obvious deformities. NEUROLOGICAL: Awake and alert. Disoriented, not following commands. No obvious cranial nerve deficits. Motor grossly normal. Moving all 4 extremities spontaneously A/P Assessment and Plan Neuro/Psych: Left frontotemporal parietal acute subdural hematoma Left frontal subarachnoid hemorrhage Right occipital nondisplaced skull fracture Right parietal occipital subcutaneous galeal hematoma C3 through C6 moderate canal stenosis and C5 to C7 moderate bilateral foraminal stenosis Depression/anxiety Chronic narcotic use Delirium/ encephalopathy Continue paroxetine 20 mg by mouth daily home medication for depression/anxiety Continue oxycodone/acetaminophen 5/325 one tablet every 6 hours. Pain Off Precedex since 09/17. Started Seroquel 100 mg by mouth daily on 09/28. Neuropsych consult for agitation/ delirium CT brain 09/13 - 4mm maximum thickness left frontotemporoparietal acute subdural hematoma with mild to moderate mass effect, approximate 4 mm midline shift which is mostly confined to the left frontal region. Small amount of subarachnoid hemorrhage and contusion in the left frontal lobe is noted. There is a right occipital nondisplaced skull fracture. Right parieto-occipital subgaleal hematoma. Cervical spine CT scan 09/13/2017 i-n mild to moderate diffuse degenerative changes with mild C3 4 and moderate C5 6 canal stenosis and moderate bilateral C5 6 and C6 7 foraminal stenosis. No evidence of significant cord compression. No acute fracture or subluxation. The occipital bone fracture is noted. Repeat neuro imaging per neurosurgery. CV: Hypertension Currently on propranolol 20 mg by mouth daily lisinopril 20 mg by mouth daily and Norvasc 10 mg by mouth daily started on 09/17 As needed labetalol 10 mg every hour as needed systolic pressure is 160 Resp: Nasal cannula to maintain saturations greater than equal to 92% Incentive spirometry while awake GI: Gastroesophageal reflux disease Currently on pantoprazole 20 mg by mouth daily. On omeprazole 20 mg by mouth daily at home for gastroesophageal reflux disease Docusate sodium 100 mg by mouth twice a day for bowel regimen : No indication for Watts catheter Endo: Diabetes mellitus Hypothyroidism Currently on glipizide 5 mg twice a day and Novulin R SSI with Accu-Cheks before meals/at bedtime to maintain euglycemia/low regimen Continue levothyroxine 100 mcg by mouth daily for hypothyroidism Renal: Creatinine currently within normal limits Monitor urine output Accurate I's and O's Heme: CBC within normal limits Does not meet transfusion thresholds at this time Coags normal ID: Monitor for infection FEN: Hyponatremia Replace electrolytes as clinically indicated unclear etiology of hyponatremia: ordered urine and serum osms, urine sodium, urine SG. recheck and trend sodium. hold 1/2 NS. Starting and is at 50 cc/h on 09/18. Samsca 15 mg by mouth times one dose ordered on 09/18. Follow serial sodium levels. Most likely SIADH MSK: PT evaluate and treat Access - Utilize peripheral IVs. Central line if indicated Prophylaxis - GI - pantoprazole - DVT - SCD/holding pharmacological prophylaxis until okay with neurosurgery Lio Dan MD Sep 18, 2017 14:54
--- NOTE | 2017-09-18 16:03 | PD.HHIRBSE ---
Patient History Record/History Review Reason for Referral: The patient is a 77 year old unknown handed female status post traumatic brain injury secondary to a fall. She previously presented to the emergency room on 08/16/2017 after falling at home after she tripped while going to her mailbox. She struck the right side of the face without loss of consciousness. In the emergency room she was noted to have right periorbital ecchymosis. A right orbital floor fracture with some swelling around the right frontal bone and orbit was noted on maxillofacial CT scan. She fell again today for cleaning out her garage. She states that she was down on her knees and only fell forward slightly. She actually does remember hitting her head. Again no definite loss of consciousness but was noted to be somewhat confused at the scene. She presented to the emergency room at [facility] alert without significant headache and no nausea or emesis. No seizure activity reported. She denies any neck or low back pain. No nausea or vomiting. No dizziness or vertigo. No blurred vision or diplopia. She is now referred for baseline neurobehavioral status examination per trauma protocol to assess cognitive, behavioral and emotional aspects of the injury and to provide treatment recommendations. Neuropsych Precautions: To be determined. Past Surgical/Medical History Past Surgery: Yes Major surgery in last 100 days: Unknown Hx Anesthesia Reactions: No Hx Gynecologic Surgery: Yes (Hysterectomy) Hx of Neuro Prob: Yes Hx Falls: Yes Hx of Musculoskeletal Pro: No Hx of Cardiovascular Prob: Yes Hypertension (High Blood Press: Yes Hx of Respiratory Problem: No Hx of GI Problems: Yes Hx Gastroesophageal Reflux: Yes Hx of Problems: No ?: Not Hx of Immuno Disor: No Hx Autoimmune Disease: No Hx of Endocrine Problems: Yes Hx Thyroid Disease: Yes Hx Diabetes: Yes Does Patient Currently Take Gl: No Diabetic Diagnosed 3 Months Or: No Hx of Eye Probl: Yes (GLASSES) Hx of Hearing or Ear Problems: Yes (Sil[place]ht [place]AG[place]) Hard of Hearing: Bilateral Hx Dental Problems: No Hx Psychiatric Problems: Yes Hx Anxiety: Yes Hx Blood Dyscrasias: No Hx Sickle Cell Disease: No Hx Thrombocytopenia: No Hx Hemophilia: No Hx of Heparin Induced Thr: No Hx of MDRO: No Hx of MRSA: No Hx of VRE: No Hx of CDIFF: No Hx of Tuberculosis: No Hx Chicken Pox: No If No, Have You Been Exposed W: No Hx Measles: No Hx of Body/Medical Devices: No Hx Pacemaker: No Hx Internal Defibrillator: No Central Line/Ports (Type): No Hx Joint Replacement: No Insulin Pump: No Hx Arteriovenous Shunt: No Hx Dental Implants: No Hx Eye Prosthesis: No Genitourinary Device: No Genitourinary Ostomy: No Gastrointestinal Ostomy: No Blood Transfusion History Will receive Blood /Blood prod: Yes Hx Blood Transfusions: No Medication Active Medications Quetiapine Fumarate (SEROquel) 100 mg DAILY PO Last administered on 09/18/17at 12: 06; Admin Dose 100 MG; Start 09/18/17 at 11:30 Tolvaptan (Samsca) 15 mg ONCE ONCE PO; Start 09/18/17 at 12:00; Stop 09/18/17 at 12:01; Status DC Mental Status Assessment Orientation: oriented to Self, disoriented to Place, disoriented to Time, disoriented to Situation Mental Status: Impaired: Thought processing, Language/Interactions, Attention, Learning/Memory, Problem-Solving, Visuospatial/Construction, Self-regulation, Other Observation The patient is lethargic and has difficulty following commands at this point. In terms of attention skills, the patient was unable to remain on task or remember basic or complex instructions. In terms of memory functioning, the patient was unable to demonstrate carryover. The patient was unable to initiate spontaneous conversation. The patient appears to posses poor insight and awareness into their situation and within the limits of this brief evaluation, poor judgment. Adjustment/Coping Assessment Adjustment/Coping: Severe: Awareness, Insight Observation The patients thought content was free from suicidal, homicidal or paranoid ideation, and the patients thought processes were bradyphrenic. The patients mood was apathetic, and the affect was flat.. LTG Status: Deferred STG Status: Deferred Team Members: Neuropsychologist Behavior Assessment Agitation: None Treatment Engagement: No effort Observation Behaviorally, the patient demonstrated no signs of agitation, impulsivity or disinhibition. However, she recently received a dose of Seroquel. She is reported to be quite agitated and confused. There was no remarkable evidence of a formal thought disorder or psychosis at this time. LTG - Status: Deferred STG Status: Deferred Team Members: Neuropsychologist Diagnosis/Discharge Plan Impression This 77 year old woman is s/p TBI 2T fall with agitation/restlessness. I will follow her to assist with agitation management. Diagnosis: (1) Major neurocognitive disorder as late effect of traumatic brain injury with behavioral disturbance [facility] Level: IV:Confused/Agitated-maximal assist Maximizing acute care outcome It is recommended that the patient be monitored for emergent behavioral impulsivity as the medical condition evolves. Consider adding Seroquel 50 q8H and order the Agitated Behavior Scale. I will follow her along with you to manage these aspects of her recovery. This patients neuropathological challenges may limit her rehabilitation potential going forward, and these challenges will require specialized therapeutic skills to maximize outcome. At this point in the recovery process, the patient does not have cognitive capacity as the patient is unable to understand a situation and its likely consequences, nor is she able to manipulate information rationally. Cognitive capacity will be assessed throughout the recovery process. Discharge Planning Anticipated Problems Ongoing areas of concern will include behavioral impulsivity, lack of insight and judgment, which is expected to improve with time and treatment. Presently , the patient is not following commands. Given the severity of the patient's injuries it is my clinical opinion that this patient will be unable to return to any type of productive employment for at least one year, perhaps longer and likely never. This patient is not considered safe to discharge home with supervision. Treatment Plan This clinician will continue to follow with you throughout the course of this patients acute care treatment, and I will be available to meet with the patient s family/support system to facilitate their understanding and the ongoing care of their family member. The goals of neuropsychological intervention shall be both educational and supportive to the family/support system as is deemed clinically appropriate. Discharge Needs To be determined. Thank you Thank you for the opportunity to assist in this patients care. Cezar Ny, Ph.D., ABPP Board Certified in Clinical Neuropsychology [place] [employer] of Professional Psychology [place] Licensed Psychologist #[id number] Cezar Ny PhD Sep 18, 2017 4:03 pm
[2017-09-18] MEDS ORDERED: POTASSIUM CHLORIDE 20 MEQ CONTROLLED RELEASE TAB PO ONE (16:30)
[2017-09-18] MEDS: NS + KCL 40 MEQ INJ 1,000 ML IV SCH (17:14)
[2017-09-18] MEDS: HALOPERIDOL LACTATE 5 MG/ML AMP IV PRN (22:53)
--- NOTE | 2017-09-18 23:01 | HHI.NSPN ---
History Chief Complaint: None. Interval History 77-year-old female status post fall with left frontal contusion-subarachnoid hemorrhage. Has remained somewhat confused during hospitalization. Exam Results Vital Signs Date Time Temp Pulse Resp B/P (MAP) Pulse Ox O2 Delivery O2 Flow Rate FiO2 09/18/17 20:08 100 09/18/17 18:00 77 09/18/17 16:00 97.4 22 115/59 (77) 09/18/17 07:42 21 Intake and Output 09/18/17 09/18/17 09/19/17 08:00 16:00 00:00 Intake Total 100 ml Output Total 600 ml Balance -600 ml 100 ml Physical Examination GENERAL: Awake & alert, 4. restraints HEENT: Normocephalic. PERRLA 3 mm reactive. MMM & pink, tongue midline to protrusion. MUSCULOSKELETAL: No evident deformity or clubbing. NEUROLOGICAL: Awake & alert. She knows that she is in the hospital and the month. She states that her family that it is her today and to tell me their names. Speech is clear and for the most part appropriate. Appears to have limited judgment and insight. She cannot tell me why she is in the hospital She followed simple commands w/o difficulty. CN II-XII appear grossly intact. Sensation to light touch intact to all extremities. She moves all extremities spontaneously & to command. Motor strength strong to all major flexion & extension muscle groups to all extremities. Lab, Micro, Other Results Laboratory Tests Test 09/18/17 04:48 09/18/17 04:50 White Blood Count 11.3 TH/MM3 Red Blood Count 3.77 MIL/MM3 Hemoglobin 10.6 GM/DL Hematocrit 30.5 % Mean Corpuscular Volume 80.9 FL Mean Corpuscular Hemoglobin 28.1 PG Mean Corpuscular Hemoglobin Concent 34.8 % Red Cell Distribution Width 14.6 % Platelet Count 305 TH/MM3 Mean Platelet Volume 9.5 FL Blood Urea Nitrogen 8 MG/DL Creatinine 0.60 MG/DL Random Glucose 157 MG/DL Calcium Level 8.4 MG/DL Sodium Level 125 MEQ/L Potassium Level 3.2 MEQ/L Chloride Level 91 MEQ/L Carbon Dioxide Level 23.1 MEQ/L Anion Gap 11 MEQ/L Estimat Glomerular Filtration Rate 97 ML/MIN Medical Decision Making Impression and Plan Impression: 1. Traumatic left frontal contusion-subarachnoid hemorrhage 2. Hypokalemia 3. Hyponatremia 4. Dementia Plan: Continue ISC neuro checks. Still requiring restraints due to agitation, fall risk Continue therapies Electrolyte replacement as needed. [employer] following for electrolyte disturbances. Terrell Burgess MD Sep 18, 2017 23:01
[2017-09-19] VITALS (13 sets, daily range): BP systolic 120–168; BP diastolic 63–94; PULSE 63–79; RESP 15–20; TEMP 97–98.1; O2SAT 95–99
[2017-09-19] MEDS: ENALAPRILAT 1.25 MG/ML VIAL IV PUSH SCH (05:45)
[2017-09-19] MEDS: PROPRANOLOL HCL 20 MG TAB PO SCH ×3 (05:45→22:42)
[2017-09-19] MEDS: glipiZIDE 5 MG TAB PO SCH ×2 (05:45→16:10)
[2017-09-19] MEDS: LEVOTHYROXINE SODIUM 100 MCG TAB PO SCH (05:45)
[2017-09-19] MEDS: HALOPERIDOL LACTATE 5 MG/ML AMP IV PRN (06:11)
[2017-09-19 06:56] LABS: HEMATOCRIT 33.7 % (35.0-46.0); HEMOGLOBIN 11.6 GM/DL (11.6-15.3); MEAN CELL VOLUME 82.1 FL (80.0-100.0); MEAN CORPUSCULAR HEMOGLOBIN 28.3 PG (27.0-34.0); MEAN CORPUSCULAR HGB CONC 34.4 % (32.0-36.0); MEAN PLATELET VOLUME 8.9 FL (7.0-11.0); PLATELET COUNT 368 TH/MM3 (150-450); RED BLOOD COUNT 4.11 MIL/MM3 (4.00-5.30); RED CELL DISTRIBUTION WIDTH 14.6 % (11.6-17.2); WHITE BLOOD COUNT 9.3 TH/MM3 (4.0-11.0)
[2017-09-19 07:07] LABS: BICARBONATE 22.3 MEQ/L (21.0-32.0); CREATININE 0.67 MG/DL (0.50-1.00)
[2017-09-19] MEDS: INSULIN NovoLIN REGULAR SUPPLEMENTAL SCALE SQ SCH ×5 (08:00→20:54)
[2017-09-19] MEDS: PARoxetine HCL 20 MG TAB PO SCH (09:30)
[2017-09-19] MEDS: LISINOPRIL 20 MG TAB PO SCH (09:30)
[2017-09-19] MEDS: PANTOPRAZOLE SOD 20 MG DELAYED RELEASE TAB PO SCH (09:30)
[2017-09-19] MEDS: DOCUSATE SODIUM 100 MG CAP PO SCH ×2 (09:30→20:53)
[2017-09-19] MEDS: QUEtiapine FUMARATE 25 MG TAB PO SCH ×2 (09:33→13:48)
[2017-09-19] MEDS: NS + KCL 40 MEQ INJ 1,000 ML IV SCH (12:40)
--- NOTE | 2017-09-19 14:31 | HHI.CCPN ---
Subjective Remarks/Hospital Course 09/13: 77-year-old female. Date of admission 09/13/2017. Date of consultation 09/14/2017. Past medical history includes anxiety, hypertension, gastroesophageal reflux disease, diabetes and hypothyroidism. Previous history of fall 08/26. At that time, she was diagnosed with A right orbital floor fracture with some swelling around the right frontal bone and orbit was noted on maxillofacial CT scan. Today, she is cleaning out her garage. She was fell down. Checks her head. No loss of consciousness. She had no headache, nausea or emesis. No seizure activity reported. She denies any neck or low back pain. No nausea or vomiting. No dizziness or vertigo. No blurred vision or diplopia. CT brain revealed right subgaleal hematoma, left subdural and subarachnoid hemorrhage. Patient was admitted under the care of Dr. Burgess. On 09/13, patient become more agitated. We are asked to patient regards to agitation so she can repeat head CT. Patient is currently arousable but not following commands. Moving all 4 extremity spontaneously. 09/14, 09/15: Remains on Precedex drip. Gets agitated on titrating down Precedex. 09/16: remains on precedex drip, although now at 0.25 mcg/kg/hr. still confused and CAM +, but much calmer and now RASS 0. sodium dropped significantly to 127 today: have ordered serum osms, urine osms, urine sodium, and urine SG. repeat and trend sodiums. 09/17: Stopped Precedex. Patient is awake and alert today. Remains hyponatremic. Tolerating by mouth diet. 09/18: Episodes of agitation. Added Seroquel 100 mg daily today. Awake and alert however not very cooperative and refusing to take meds this morning. Hyponatremia persists. UA still not available. We'll start and is at 50 cc an hour and Samsca 15 mg by mouth 1 dose 09/19: Calmer with With Seroquel. Changed Seroquel dose to 50-50-100 mg. Sodium level up to 134 with 1 dose of samsca. Still gets agitated times and refuses to eat. Objective Vital Signs Date Time Temp Pulse Resp B/P (MAP) Pulse Ox O2 Delivery O2 Flow Rate FiO2 09/19/17 12:00 97.5 67 18 132/63 (86) 97 09/19/17 09:45 21 Intake and Output 09/19/17 09/19/17 09/20/17 08:00 16:00 00:00 Intake Total 320 ml Balance 320 ml Result Diagram: 09/19/17 0451 09/19/17 0451 Imaging Last Impressions Head CT 09/13/17 1307 Signed Impressions: Service Date/Time: September 13:56 - CONCLUSION: 1. Acute subdural hematoma along the left frontal, parietal and temporal lobes measuring 5 mm in greatest width. Acute subarachnoid hemorrhage is also noted throughout the left frontal lobe and scattered petechial hemorrhages are also noted within left frontal lobe. There is 4 mm of subfalcine herniation to the right. 2. Acute fracture mild right occipital skull as well as subgaleal hematoma along the right occipital and posterior parietal skull. Mike Laguna MD Cervical Spine CT 09/13/17 1307 Signed Impressions: Service Date/Time: September 13:56 - CONCLUSION: 1. Acute fracture involving right occipital skull base. 2. No definite acute fracture or prevertebral soft tissue swelling within the cervical spine. 3. Mild spinal stenosis at C3-4 and C5-6. 4. Moderate bilateral foraminal narrowing at C5-6, moderate left neuroforaminal at C6-7 and moderate right neural foraminal narrowing at C3-4. 5. Diffuse cervical spondylosis from C2 through C7. 6. Degenerative changes and scoliosis of the cervical spine. Mike Laguna MD Objective Remarks GENERAL: 77-year-old female currently resting in bed in no acute distress SKIN: Warm and dry. EYES: Pupils equal and round. No scleral icterus. No injection or drainage. ENT: No nasal bleeding or discharge. Mucous membranes pink and moist. NECK: Trachea midline. No JVD. CARDIOVASCULAR: Regular rate and rhythm. RESPIRATORY: No accessory muscle use. equal chest rise. GASTROINTESTINAL: Abdomen soft, non-tender, nondistended. Hepatic and splenic margins not palpable. MUSCULOSKELETAL: Extremities without clubbing, cyanosis, or edema. No obvious deformities. NEUROLOGICAL: Awake and alert. Disoriented, not following commands. No obvious cranial nerve deficits. Motor grossly normal. Moving all 4 extremities spontaneously A/P Assessment and Plan Neuro/Psych: Left frontotemporal parietal acute subdural hematoma Left frontal subarachnoid hemorrhage Right occipital nondisplaced skull fracture Right parietal occipital subcutaneous galeal hematoma C3 through C6 moderate canal stenosis and C5 to C7 moderate bilateral foraminal stenosis Depression/anxiety Chronic narcotic use Delirium/ encephalopathy Continue paroxetine 20 mg by mouth daily home medication for depression/anxiety Continue oxycodone/acetaminophen 5/325 one tablet every 6 hours. Pain Off Precedex since 09/17. Started Seroquel 100 mg by mouth daily on 09/28. Neuropsych consult for agitation/ delirium CT brain 09/13 - 4mm maximum thickness left frontotemporoparietal acute subdural hematoma with mild to moderate mass effect, approximate 4 mm midline shift which is mostly confined to the left frontal region. Small amount of subarachnoid hemorrhage and contusion in the left frontal lobe is noted. There is a right occipital nondisplaced skull fracture. Right parieto-occipital subgaleal hematoma. Cervical spine CT scan 09/13/2017 in mild to moderate diffuse degenerative changes with mild C3 4 and moderate C5 6 canal stenosis and moderate bilateral C5 6 and C6 7 foraminal stenosis. No evidence of significant cord compression. No acute fracture or subluxation. The occipital bone fracture is noted. Repeat neuro imaging per neurosurgery. CV: Hypertension Currently on propranolol 20 mg by mouth daily lisinopril 20 mg by mouth daily and Norvasc 10 mg by mouth daily started on 09/17 As needed labetalol 10 mg every hour as needed systolic pressure is 160 Resp: Nasal cannula to maintain saturations greater than equal to 92% Incentive spirometry while awake GI: Gastroesophageal reflux disease Currently on pantoprazole 20 mg by mouth daily. On omeprazole 20 mg by mouth daily at home for gastroesophageal reflux disease Docusate sodium 100 mg by mouth twice a day for bowel regimen : No indication for Watts catheter Endo: Diabetes mellitus Hypothyroidism Currently on glipizide 5 mg twice a day and Novulin R SSI with Accu-Cheks before meals/at bedtime to maintain euglycemia/low regimen Continue levothyroxine 100 mcg by mouth daily for hypothyroidism Renal: Creatinine currently within normal limits Monitor urine output Accurate I's and O's Heme: CBC within normal limits Does not meet transfusion thresholds at this time Coags normal ID: Monitor for infection FEN: Hyponatremia Replace electrolytes as clinically indicated unclear etiology of hyponatremia: ordered urine and serum osms, urine sodium, urine SG. recheck and trend sodium. NS at 50 cc/h started on 09/18. Samsca 15 mg by mouth times one dose ordered on . Follow serial sodium levels. Most likely SIADH MSK: PT evaluate and treat Access - Utilize peripheral IVs. Central line if indicated Prophylaxis - GI - pantoprazole - DVT - SCD/holding pharmacological prophylaxis until okay with neurosurgery Consult and transfer to hospitalist service for further medical management. Transfer out of ICU to [facility]. Lio Dan MD Sep 19, 2017 14:31
[2017-09-19] MEDS: LABETALOL HCL 100 MG/20 ML VIAL IV PRN (17:28)
[2017-09-19] MEDS ORDERED: QUEtiapine FUMARATE 100 MG TAB PO SCH (21:00)
[2017-09-20] VITALS (14 sets, daily range): BP systolic 125–185; BP diastolic 63–79; PULSE 60–67; RESP 14–26; TEMP 97.6–97.9; O2SAT 96–100
[2017-09-20] MEDS: PROPRANOLOL HCL 20 MG TAB PO SCH ×3 (05:52→20:51)
[2017-09-20] MEDS: LEVOTHYROXINE SODIUM 100 MCG TAB PO SCH (05:52)
[2017-09-20 06:37] LABS: HEMATOCRIT 33.4 % (35.0-46.0); HEMOGLOBIN 11.3 GM/DL (11.6-15.3); MEAN CELL VOLUME 82.5 FL (80.0-100.0); MEAN CORPUSCULAR HEMOGLOBIN 27.8 PG (27.0-34.0); MEAN CORPUSCULAR HGB CONC 33.7 % (32.0-36.0); MEAN PLATELET VOLUME 8.1 FL (7.0-11.0); PLATELET COUNT 354 TH/MM3 (150-450); RED BLOOD COUNT 4.05 MIL/MM3 (4.00-5.30); RED CELL DISTRIBUTION WIDTH 14.8 % (11.6-17.2); WHITE BLOOD COUNT 10.1 TH/MM3 (4.0-11.0)
[2017-09-20 07:10] LABS: BICARBONATE 25.1 MEQ/L (21.0-32.0); CALCIUM 8.7 MG/DL (8.5-10.1); CREATININE 0.58 MG/DL (0.50-1.00)
[2017-09-20] MEDS: INSULIN NovoLIN REGULAR SUPPLEMENTAL SCALE SQ SCH ×4 (08:00→21:43)
[2017-09-20] MEDS: PARoxetine HCL 20 MG TAB PO SCH (08:05)
[2017-09-20] MEDS: DOCUSATE SODIUM 100 MG CAP PO SCH ×2 (08:05→20:51)
[2017-09-20] MEDS: LISINOPRIL 20 MG TAB PO SCH (08:05)
[2017-09-20] MEDS: QUEtiapine FUMARATE 25 MG TAB PO SCH ×2 (08:05→14:39)
[2017-09-20] MEDS: PANTOPRAZOLE SOD 20 MG DELAYED RELEASE TAB PO SCH (08:05)
[2017-09-20] MEDS: glipiZIDE 5 MG TAB PO SCH ×2 (08:06→15:31)
[2017-09-20] MEDS: NS + KCL 40 MEQ INJ 1,000 ML IV SCH (08:06)
--- NOTE | 2017-09-20 08:40 | HHI.PR ---
Neuropsych Behavior Behavior: Intact: Impulsive/Agitated Cognitive Cognitive: Severe: Cognitive, Attention/Concentration, Confused/Orientation, Insight/Awareness, Judgement/Problem-Solving, Memory Progress Notes/Response to Tx Contents of Sessions: Adjustment, Level of Consciousness Time with Patient: 15 minutes Premorbid psychological status Premorbid Cognitive, Emotional and Behavioral Status: Unable to Assess. The patient was unable to report on her baseline abilities. Behavioral Reactions of Patient and Family/Support System: Unable to Assess. The patients family is experiencing ongoing issues of adjustment given the nature of the injury, and this aspect of recovery will require ongoing monitoring. Emotional/Behavioral Status of Patient and Family/Support System: Unable to Assess. Pertinent issues, if appropriate to this patients clinical care, are described in detail above. Maximizing acute care outcome It is recommended that the patient be monitored for emergent behavioral impulsivity as the medical condition evolves. I will follow her along with you to manage these aspects of her recovery. This patients neuropathological challenges may limit her rehabilitation potential going forward, and these challenges will require specialized therapeutic skills to maximize outcome. At this point in the recovery process, the patient does not have cognitive capacity as the patient is unable to understand a situation and its likely consequences, nor is she able to manipulate information rationally. Cognitive capacity will be assessed throughout the recovery process. Anticipated Problems Ongoing areas of concern will include behavioral impulsivity, lack of insight and judgment, which is expected to improve with time and treatment. Presently , the patient is not following commands. Given the severity of the patient's injuries it is my clinical opinion that this patient will be unable to return to any type of productive employment for at least one year, perhaps longer and likely never. This patient is not considered safe to discharge home with supervision. Treatment Plan This clinician will continue to follow with you throughout the course of this patients acute care treatment, and I will be available to meet with the patient s family/support system to facilitate their understanding and the ongoing care of their family member. The goals of neuropsychological intervention shall be both educational and supportive to the family/support system as is deemed clinically appropriate. [facility] [place] Level: IV:Confused/Agitated-maximal assist Disinhibition Score: 14.00 Aggression Score: 14.00 Lability Score: 14.00 Agitated Behavior Total Score: 14 Impression This 77 year old woman is s/p TBI 2T fall with agitation/restlessness. I will follow her to assist with agitation management. Diagnosis: (1) Major neurocognitive disorder as late effect of traumatic brain injury with behavioral disturbance Progress Note Narrative Ongoing follow-up of patient seen during daily neuropsychology rounds. This is day 7 post injury. The patient's agitation/restlessness is improved, with ABS of 14 (14, 14, 14). She remains on Seroquel 50/50/100 and propranolol 20 q8H. Her last Haldol PRN was 09/19 at 0611. She appears to be a medicated [place]o IV at this time. On exam, she was awake and alert but confused. RN bedside felt she was a bit too sedated, but she appears compliant and calm, not too sedated. I will continue to follow. Cezar Ny PhD Sep 20, 2017 8:40 am
--- NOTE | 2017-09-20 09:39 | HHI.NSPN ---
(Brain Rudolphpooja POSADAS) History Chief Complaint: None. (Brain Rudolphpooja POSADAS) Interval History 09/13: 77-year-old female who previously presented to the emergency room on 08/16 after falling at home after she tripped while going to her mailbox. She struck the right side of the face without loss of consciousness. In the emergency room she was noted to have right periorbital ecchymosis. A right orbital floor fracture with some swelling around the right frontal bone and orbit was noted on maxillofacial CT scan. She fell again today for cleaning out her garage. She states that she was down on her knees and only fell forward slightly. She actually does remember hitting her head. Again no definite loss of consciousness but was noted to be somewhat confused at the scene. She presented to the emergency room at [facility] without significant headache and no nausea or emesis. No seizure activity reported. She denies any neck or low back pain. No nausea or vomiting. No dizziness or vertigo. No blurred vision or diplopia. 09/14: The patient is lethargic when seen but does have dexmedetomidine infusing for sedation. She briefly arouses to noxious stimulation. Her speech is soft and muffled. She is confused. She does move all extremities spontaneously and to command but not appropriately. She does not seem to comprehend some of what is being said to her. She did deny any headache, dizziness or nausea. Nursing reports that without the dexmedetomidine the patient is extremely agitated. She was oriented to person only for Nursing but did follow commands and was moving everything. 09/15: becomes very agitated, on Precedex. opens eyes and moves all four. 09/16: arouses, confused, oriented to name only, becomes restless in bed, on four point restraints. she does deny headaches, nausea, or vomiting. no reports of seizures overnight. 09/17: The patient is sitting up with the bed in chair position and talking with a family member. She is in four point restraints. No sedation infusing. She is oriented to person, being in the hospital and month. She does follow simple commands without difficulty and moves all extremities spontaneously. She has been intermittently hypertensive. Nursing reports that the patient doesn't have any PRN medication for hypertension. 09/18: 77-year-old female status post fall with left frontal contusion- subarachnoid hemorrhage. Has remained somewhat confused during hospitalization. 09/20: When seen this morning the patient was asleep in the chair. She did awaken to voice and readily interacted. She followed some commands but had difficulty with others. She continues to have confusion as well as receptive aphasia. She denies any headache but does say "a little bit" when asked if she had any dizziness. (Lauri Rudolph) Exam Results 09/18/17 09/18/17 09/19/17 09/19/17 09/20/17 09/20/17 06:00 18:00 06:00 18:00 06:00 18:00 Intake Total 100 ml 320 ml 440 ml Output Total 600 ml Balance -600 ml 100 ml 320 ml 440 ml Intake Oral 100 ml 320 ml 440 ml Output Urine Total 600 ml # Voids 4 5 5 3 # Bowel Movements 0 0 2 Vital Signs Date Time Temp Pulse Resp B/P (MAP) Pulse Ox O2 Delivery O2 Flow Rate FiO2 09/20/17 08:00 97.6 61 26 185/77 (113) 96 09/20/17 08:00 61 09/20/17 06:00 61 09/20/17 04:00 61 09/20/17 04:00 97.8 61 15 151/65 (93) 96 09/20/17 02:00 60 09/20/17 00:00 60 09/20/17 00:00 97.9 60 14 141/64 (89) 96 09/19/17 22:00 63 09/19/17 20:32 95 21 09/19/17 20:00 71 09/19/17 20:00 97.8 64 15 160/73 (102) 96 09/19/17 18:00 64 09/19/17 16:00 64 09/19/17 16:00 97.0 68 18 168/74 (105) 98 09/19/17 14:00 70 09/19/17 12:00 97.5 67 18 132/63 (86) 97 09/19/17 12:00 67 1/10/18 10:00 64 09/19/17 09:45 21 09/19/17 08:00 98.1 67 20 166/94 (118) 97 09/19/17 08:00 67 09/19/17 06:00 71 09/19/17 04:00 97.4 79 18 167/80 (109) 98 09/19/17 04:00 74 09/19/17 02:00 78 09/19/17 00:00 97.6 78 20 120/64 (82) 99 09/19/17 00:00 79 09/18/17 22:00 76 09/18/17 20:08 100 09/18/17 20:00 97.5 85 20 125/80 (95) 98 09/18/17 20:00 60 09/18/17 18:00 77 09/18/17 16:00 62 09/18/17 16:00 97.4 68 22 115/59 (77) 98 09/18/17 14:00 62 09/18/17 12:00 98.1 68 16 172/88 (116) 98 09/18/17 12:00 68 09/18/17 10:00 68 09/18/17 08:00 74 09/18/17 08:00 97.8 66 20 174/84 (114) 99 09/18/17 07:42 96 21 09/18/17 06:00 80 09/18/17 04:00 98.0 70 25 168/73 (104) 94 09/18/17 04:00 70 09/18/17 02:00 66 09/18/17 00:00 70 09/18/17 00:00 98.4 70 35 162/75 (104) 94 09/17/17 22:00 68 09/17/17 20:00 98.6 68 153/67 (95) 96 09/17/17 20:00 68 09/17/17 19:25 96 21 09/17/17 18:00 64 09/17/17 16:00 57 09/17/17 16:00 98.6 57 20 184/79 (114) 97 09/17/17 14:00 60 09/17/17 12:00 97.0 64 22 151/69 (96) 98 09/17/17 12:00 64 09/17/17 10:00 56 (Lauri Rudolph) Physical Examination GENERAL: Asleep but awakens to voice, then alert. Readily interacts. Affect essentially normal. No apparent distress. HEENT: Normocephalic. PERRLA 3 mm reactive. MMM & pink, tongue midline to protrusion. MUSCULOSKELETAL: No evident deformity or clubbing. NEUROLOGICAL: Asleep but awakens to voice, alert after that. Oriented to self only. Thinks it is 1997 and October. When asked where she is she replies "About half way there. " Her speech is clear. CN II-XII appear grossly intact. She followed some simple commands but had difficulty w/others. Sensation to light touch intact to all extremities. She moves all extremities spontaneously & to command. Motor strength appears strong to all major flexion & extension muscle groups to all extremities. (Lauri Rudolph) Lab, Micro, Other Results Laboratory Tests Test 09/17/17 10:30 09/18/17 04:48 09/18/17 04:50 09/19/17 04:51 Nasal Screen MRSA (PCR) MRSA NOT DETECTED White Blood Count 11.3 TH/MM3 9.3 TH/MM3 Red Blood Count 3.77 MIL/MM3 4.11 MIL/MM3 Hemoglobin 10.6 GM/DL 11.6 GM/DL Hematocrit 30.5 % 33.7 % Mean Corpuscular Volume 80.9 FL 82.1 FL Mean Corpuscular Hemoglobin 28.1 PG 28.3 PG Mean Corpuscular Hemoglobin Concent 34.8 % 34.4 % Red Cell Distribution Width 14.6 % 14.6 % Platelet Count 305 TH/MM3 368 TH/MM3 Mean Platelet Volume 9.5 FL 8.9 FL Blood Urea Nitrogen 8 MG/DL 9 MG/DL Creatinine 0.60 MG/DL 0.67 MG/DL Random Glucose 157 MG/DL 156 MG/DL Calcium Level 8.4 MG/DL 9.0 MG/DL Sodium Level 125 MEQ/L 134 MEQ/L Potassium Level 3.2 MEQ/L 4.2 MEQ/L Chloride Level 91 MEQ/L 101 MEQ/L Carbon Dioxide Level 23.1 MEQ/L 22.3 MEQ/L Anion Gap 11 MEQ/L 11 MEQ/L Estimat Glomerular Filtration Rate 97 ML/MIN 85 ML/MIN Test 09/20/17 05:30 White Blood Count 10.1 TH/MM3 Red Blood Count 4.05 MIL/MM3 Hemoglobin 11.3 GM/DL Hematocrit 33.4 % Mean Corpuscular Volume 82.5 FL Mean Corpuscular Hemoglobin 27.8 PG Mean Corpuscular Hemoglobin Concent 33.7 % Red Cell Distribution Width 14.8 % Platelet Count 354 TH/MM3 Mean Platelet Volume 8.1 FL Hematology Comments Blood Urea Nitrogen 10 MG/DL Creatinine 0.58 MG/DL Random Glucose 120 MG/DL Calcium Level 8.7 MG/DL Sodium Level 133 MEQ/L Potassium Level 4.1 MEQ/L Chloride Level 100 MEQ/L Carbon Dioxide Level 25.1 MEQ/L Anion Gap 8 MEQ/L Estimat Glomerular Filtration Rate 101 ML/MIN (Lauri Rudolph) Medical Decision Making Impression and Plan Impression: 1. Traumatic brain injury with left frontotemporoparietal acute subdural hematoma 2. Occipital skull fracture-close nondepressed 3. Hypertension 4. Diabetes 5. Anxiety disorder 6. GERD The patient continues to do well and appears essentially stable neurologically. Intermittent hypertension. Reviewed labs for this morning. Mild anaemia. Sodium 133. CT brain essentially unchanged. Plan: Critical care management per Electromedical Service Engineer. Neuro checks. Stat CT brain for any decline in neuro status. Mechanical DVT prophylaxis. Hold pharmacologic DVT prophylaxis. Stress ulcer prophylaxis. Mobilise patient w/assistance. PT eval & tx. Continue present medication for hypertension with additional when necessary medications. Insulin sliding scale. Maintain SBP between 120 and 160 mm Hg. (Lauri Rudolph) Attending Statement The exam, history, and the medical decision-making described in the above note were completed with the assistance of the mid-level provider. I reviewed and agree with the findings presented. I attest that I had a [id number] encounter with the patient on the same day, and personally performed and documented my assessment and findings in the medical record. On my examination of 09/20/2017, the patient up out of bed with physical therapy , requiring moderate assistance 2 people to stand. She is relatively calm on the morning of 09/20/2017. Nursing reports increased agitation last evening, improved with Seroquel. She actually seems a little more lethargic today, plan to wean sedatives as tolerated. Continue therapy She is stable from neurosurgical standpoint and can discharge to group home for inpatient rehabilitation when medically cleared.. (Terrell Burgess MD) Lauri Rudolph Sep 20, 2017 09:38 Terrell Burgess MD Sep 21, 2017 21:57
--- NOTE | 2017-09-20 10:19 | HHI.CCPN ---
Subjective Remarks/Hospital Course 09/13: 77-year-old female. Date of admission 09/13/2017. Date of consultation 09/14/2017. Past medical history includes anxiety, hypertension, gastroesophageal reflux disease, diabetes and hypothyroidism. Previous history of fall 08/26. At that time, she was diagnosed with A right orbital floor fracture with some swelling around the right frontal bone and orbit was noted on maxillofacial CT scan. Today, she is cleaning out her garage. She was fell down. Checks her head. No loss of consciousness. She had no headache, nausea or emesis. No seizure activity reported. She denies any neck or low back pain. No nausea or vomiting. No dizziness or vertigo. No blurred vision or diplopia. CT brain revealed right subgaleal hematoma, left subdural and subarachnoid hemorrhage. Patient was admitted under the care of Dr. Burgess. On 09/13, patient become more agitated. We are asked to patient regards to agitation so she can repeat head CT. Patient is currently arousable but not following commands. Moving all 4 extremity spontaneously. 09/14, 09/15: Remains on Precedex drip. Gets agitated on titrating down Precedex. 09/16: remains on precedex drip, although now at 0.25 mcg/kg/hr. still confused and CAM +, but much calmer and now RASS 0. sodium dropped significantly to 127 today: have ordered serum osms, urine osms, urine sodium, and urine SG. repeat and trend sodiums. 09/17: Stopped Precedex. Patient is awake and alert today. Remains hyponatremic. Tolerating by mouth diet. 09/18: Episodes of agitation. Added Seroquel 100 mg daily today. Awake and alert however not very cooperative and refusing to take meds this morning. Hyponatremia persists. UA still not available. We'll start and is at 50 cc an hour and Samsca 15 mg by mouth 1 dose 09/19: Calmer with With Seroquel. Changed Seroquel dose to 50-50-100 mg. Sodium level up to 134 with 1 dose of samsca. Still gets agitated times and refuses to eat. 09/20: Calm today. Will defer to Neuropsych for atypical antipsychotic meds management. Transfer. Objective Vital Signs Date Time Temp Pulse Resp B/P (MAP) Pulse Ox O2 Delivery O2 Flow Rate FiO2 09/20/17 08:00 97.6 61 26 185/77 (402) 96 09/19/17 20:32 21 Result Diagram: 09/20/17 0530 09/20/17 0530 Imaging Last Impressions Head CT 09/13/17 1307 Signed Impressions: Service Date/Time: September 13:56 - CONCLUSION: 1. Acute subdural hematoma along the left frontal, parietal and temporal lobes measuring 5 mm in greatest width. Acute subarachnoid hemorrhage is also noted throughout the left frontal lobe and scattered petechial hemorrhages are also noted within left frontal lobe. There is 4 mm of subfalcine herniation to the right. 2. Acute fracture mild right occipital skull as well as subgaleal hematoma along the right occipital and posterior parietal skull. Mike Laguna MD Cervical Spine CT 09/13/17 1307 Signed Impressions: Service Date/Time: September 13:56 - CONCLUSION: 1. Acute fracture involving right occipital skull base. 2. No definite acute fracture or prevertebral soft tissue swelling within the cervical spine. 3. Mild spinal stenosis at C3-4 and C5-6. 4. Moderate bilateral foraminal narrowing at C5-6, moderate left neuroforaminal at C6-7 and moderate right neural foraminal narrowing at C3-4. 5. Diffuse cervical spondylosis from C2 through C7. 6. Degenerative changes and scoliosis of the cervical spine. Mike Laguna MD Objective Remarks GENERAL: 77-year-old female currently resting in chair in no acute distress SKIN: Warm and dry. EYES: Pupils equal and round. No scleral icterus. No injection or drainage. ENT: No nasal bleeding or discharge. Mucous membranes pink and moist. NECK: Trachea midline. Airway widely patent. CARDIOVASCULAR: Regular rate and rhythm. No JVD. RESPIRATORY: No accessory muscle use. equal chest rise. GASTROINTESTINAL: Abdomen soft, non-tender, nondistended. Hepatic and splenic margins not palpable. MUSCULOSKELETAL: Extremities without clubbing, cyanosis, or edema. No obvious deformities. Well perfused. NEUROLOGICAL: Lethargic. Disoriented, not following commands. No obvious cranial nerve deficits. Motor grossly normal. Moving all 4 extremities spontaneously A/P Assessment and Plan Neuro/Psych: Left frontotemporal parietal acute subdural hematoma Left frontal subarachnoid hemorrhage Right occipital nondisplaced skull fracture Right parietal occipital subcutaneous galeal hematoma C3 through C6 moderate canal stenosis and C5 to C7 moderate bilateral foraminal stenosis Depression/anxiety Chronic narcotic use Delirium/ encephalopathy Continue paroxetine 20 mg by mouth daily home medication for depression/anxiety Continue oxycodone/acetaminophen 5/325 one tablet every 6 hours. Pain Off Precedex since 09/17. Started Seroquel 100 mg by mouth daily on 09/28. Neuropsych consult for agitation/ delirium CT brain 09/13 - 4mm maximum thickness left frontotemporoparietal acute subdural hematoma with mild to moderate mass effect, approximate 4 mm midline shift which is mostly confined to the left frontal region. Small amount of subarachnoid hemorrhage and contusion in the left frontal lobe is noted. There is a right occipital nondisplaced skull fracture. Right parieto-occipital subgaleal hematoma. Cervical spine CT scan 09/13/2017 in mild to moderate diffuse degenerative changes with mild C3 4 and moderate C5 6 canal stenosis and moderate bilateral C5 6 and C6 7 foraminal stenosis. No evidence of significant cord compression. No acute fracture or subluxation. The occipital bone fracture is noted. Repeat neuro imaging per neurosurgery. CV: Hypertension Currently on propranolol 20 mg by mouth daily lisinopril 20 mg by mouth daily and Norvasc 10 mg by mouth daily started on 09/17 As needed labetalol 10 mg every hour as needed systolic pressure is 160 Resp: Nasal cannula to maintain saturations greater than equal to 92% Incentive spirometry while awake GI: Gastroesophageal reflux disease Currently on pantoprazole 20 mg by mouth daily. On omeprazole 20 mg by mouth daily at home for gastroesophageal reflux disease Docusate sodium 100 mg by mouth twice a day for bowel regimen : No indication for Watts catheter Endo: Diabetes mellitus Hypothyroidism Currently on glipizide 5 mg twice a day and Novulin R SSI with Accu-Cheks before meals/at bedtime to maintain euglycemia/low regimen Continue levothyroxine 100 mcg by mouth daily for hypothyroidism Renal: Creatinine currently within normal limits Monitor urine output Accurate I's and O's Heme: CBC within normal limits Does not meet transfusion thresholds at this time Coags normal ID: Monitor for infection FEN: Hyponatremia Replace electrolytes as clinically indicated unclear etiology of hyponatremia: ordered urine and serum osms, urine sodium, urine SG. recheck and trend sodium. NS at 50 cc/h started on 09/18. Samsca 15 mg by mouth times one dose ordered on . Follow serial sodium levels. Most likely SIADH MSK: PT evaluate and treat Access - Utilize peripheral IVs. Central line if indicated Prophylaxis - GI - pantoprazole - DVT - SCD/holding pharmacological prophylaxis until okay with neurosurgery Consult and transfer to hospitalist service for further medical management. Transfer out of ICU. Steven Landis MD Sep 20, 2017 10:19
[2017-09-20] MEDS: QUEtiapine FUMARATE 100 MG TAB PO SCH (20:51)
[2017-09-20] MEDS ORDERED: QUEtiapine FUMARATE 100 MG TAB PO SCH (21:00)
[2017-09-21] VITALS (9 sets, daily range): BP systolic 105–184; BP diastolic 58–85; PULSE 59–69; RESP 13–22; TEMP 97.3–98.5; O2SAT 96–100
[2017-09-21 04:08] LABS: HEMATOCRIT 33.3 % (35.0-46.0); HEMOGLOBIN 11.2 GM/DL (11.6-15.3); MEAN CELL VOLUME 82.7 FL (80.0-100.0); MEAN CORPUSCULAR HEMOGLOBIN 27.8 PG (27.0-34.0); MEAN CORPUSCULAR HGB CONC 33.7 % (32.0-36.0); MEAN PLATELET VOLUME 7.6 FL (7.0-11.0); PLATELET COUNT 366 TH/MM3 (150-450); RED BLOOD COUNT 4.03 MIL/MM3 (4.00-5.30); RED CELL DISTRIBUTION WIDTH 14.7 % (11.6-17.2); WHITE BLOOD COUNT 11.9 TH/MM3 (4.0-11.0)
[2017-09-21 04:32] LABS: BICARBONATE 28.6 MEQ/L (21.0-32.0); CALCIUM 8.6 MG/DL (8.5-10.1); CREATININE 0.67 MG/DL (0.50-1.00)
[2017-09-21] MEDS: PROPRANOLOL HCL 20 MG TAB PO SCH ×3 (05:47→21:34)
[2017-09-21] MEDS: LEVOTHYROXINE SODIUM 100 MCG TAB PO SCH (05:47)
[2017-09-21] MEDS: glipiZIDE 5 MG TAB PO SCH ×2 (05:47→18:17)
[2017-09-21] MEDS: NS + KCL 40 MEQ INJ 1,000 ML IV SCH (05:47)
[2017-09-21] MEDS: INSULIN NovoLIN REGULAR SUPPLEMENTAL SCALE SQ SCH ×4 (08:00→21:00)
--- NOTE | 2017-09-21 09:10 | HHI.NSPN ---
(Brain Rudolphpooja POSADAS) History Chief Complaint: None. (Brain Rudolphpooja POSADAS) Interval History 09/13: 77-year-old female who previously presented to the emergency room on 08/16 after falling at home after she tripped while going to her mailbox. She struck the right side of the face without loss of consciousness. In the emergency room she was noted to have right periorbital ecchymosis. A right orbital floor fracture with some swelling around the right frontal bone and orbit was noted on maxillofacial CT scan. She fell again today for cleaning out her garage. She states that she was down on her knees and only fell forward slightly. She actually does remember hitting her head. Again no definite loss of consciousness but was noted to be somewhat confused at the scene. She presented to the emergency room at [facility] without significant headache and no nausea or emesis. No seizure activity reported. She denies any neck or low back pain. No nausea or vomiting. No dizziness or vertigo. No blurred vision or diplopia. 09/14: The patient is lethargic when seen but does have dexmedetomidine infusing for sedation. She briefly arouses to noxious stimulation. Her speech is soft and muffled. She is confused. She does move all extremities spontaneously and to command but not appropriately. She does not seem to comprehend some of what is being said to her. She did deny any headache, dizziness or nausea. Nursing reports that without the dexmedetomidine the patient is extremely agitated. She was oriented to person only for Nursing but did follow commands and was moving everything. 09/15: becomes very agitated, on Precedex. opens eyes and moves all four. 09/16: arouses, confused, oriented to name only, becomes restless in bed, on four point restraints. she does deny headaches, nausea, or vomiting. no reports of seizures overnight. 09/17: The patient is sitting up with the bed in chair position and talking with a family member. She is in four point restraints. No sedation infusing. She is oriented to person, being in the hospital and month. She does follow simple commands without difficulty and moves all extremities spontaneously. She has been intermittently hypertensive. Nursing reports that the patient doesn't have any PRN medication for hypertension. 09/18: 77-year-old female status post fall with left frontal contusion- subarachnoid hemorrhage. Has remained somewhat confused during hospitalization. 09/20: When seen this morning the patient was asleep in the chair. She did awaken to voice and readily interacted. She followed some commands but had difficulty with others. She continues to have confusion as well as receptive aphasia. She denies any headache but does say "a little bit" when asked if she had any dizziness. 09/21: This morning the patient is asleep but awakens to voice. She says she is doing good. She had no complaints. She did follow commands and moved all extremities spontaneously. She was confused as to time and place. (Lauri Rudolph) Exam Results 09/19/17 09/19/17 09/20/17 09/20/17 09/21/17 09/21/17 06:00 18:00 06:00 18:00 06:00 18:00 Intake Total 320 ml 1440 ml 1700 ml 120 ml Output Total 300 ml 100 ml Balance 320 ml 1440 ml 1400 ml 20 ml Intake Oral 320 ml 440 ml 700 ml 120 ml IV Total 1000 ml 1000 ml Output Urine Total 300 ml 100 ml # Voids 5 5 3 3 # Bowel Movements 0 2 0 Vital Signs Date Time Temp Pulse Resp B/P (MAP) Pulse Ox O2 Delivery O2 Flow Rate FiO2 09/21/17 06:00 65 09/21/17 04:00 59 09/21/17 04:00 97.4 59 13 148/64 (92) 99 09/21/17 02:00 60 09/21/17 00:00 98.5 60 17 151/70 (97) 100 09/21/17 00:00 60 09/20/17 22:00 62 09/20/17 20:26 100 21 09/20/17 20:00 97.7 63 20 152/67 (95) 99 09/20/17 20:00 63 09/20/17 18:00 60 09/20/17 16:00 67 09/20/17 16:00 97.8 65 25 125/63 (83) 100 09/20/17 14:00 67 09/20/17 12:00 97.6 61 18 142/79 (100) 96 09/20/17 12:00 61 09/20/17 10:45 99 21 09/20/17 10:00 65 09/20/17 08:00 97.6 61 26 185/77 (113) 96 09/20/17 08:00 61 09/20/17 06:00 61 09/20/17 04:00 61 09/20/17 04:00 97.8 61 15 151/65 (93) 96 09/20/17 02:00 60 09/20/17 00:00 60 09/20/17 00:00 97.9 60 14 141/64 (89) 96 09/19/17 22:00 63 09/19/17 20:32 95 21 09/19/17 20:00 71 09/19/17 20:00 97.8 64 15 160/73 (102) 96 09/19/17 18:00 64 09/19/17 16:00 64 09/19/17 16:00 97.0 68 18 168/74 (105) 98 09/19/17 14:00 70 09/19/17 12:00 97.5 67 18 132/63 (86) 97 09/19/17 12:00 67 09/19/17 10:00 64 09/19/17 09:45 21 09/19/17 08:00 98.1 67 20 166/94 (118) 97 09/19/17 08:00 67 09/19/17 06:00 71 09/19/17 04:00 97.4 79 18 167/80 (109) 98 09/19/17 04:00 74 09/19/17 02:00 78 09/19/17 00:00 97.6 78 20 120/64 (82) 99 09/19/17 00:00 79 09/18/17 22:00 76 09/18/17 20:08 100 09/18/17 20:00 97.5 85 20 125/80 (95) 98 09/18/17 20:00 60 09/18/17 18:00 77 09/18/17 16:00 62 09/18/17 16:00 97.4 68 22 115/59 (77) 98 09/18/17 14:00 62 09/18/17 12:00 98.1 68 16 172/88 (116) 98 09/18/17 12:00 68 09/18/17 10:00 68 (Lauri Rudolph) Physical Examination GENERAL: Asleep but awakens to voice, then alert. Readily interacts. Affect essentially normal. No apparent distress. HEENT: Normocephalic. PERRLA 3 mm reactive. MMM & pink, tongue midline to protrusion. MUSCULOSKELETAL: No evident deformity or clubbing. NEUROLOGICAL: Asleep but awakens to voice, alert after that. Oriented to self only. Thinks it is 1980 and October. When asked where she is she replies "In this facility." She said no to this being a store, an office, and a hospital but when asked if this was a care home she said that it "was more like that." She said the president was "Trading." Her speech is clear. CN II-XII appear grossly intact. She followed simple commands. Sensation to light touch intact to all extremities. She moves all extremities spontaneously & to command. Motor strength appears strong to all major flexion & extension muscle groups to all extremities. (Lauri Rudolph) Lab, Micro, Other Results Laboratory Tests Test 09/19/17 04:51 09/20/17 05:30 09/21/17 03:45 09/21/17 03:48 White Blood Count 9.3 TH/MM3 10.1 TH/MM3 11.9 TH/MM3 Red Blood Count 4.11 MIL/MM3 4.05 MIL/MM3 4.03 MIL/MM3 Hemoglobin 11.6 GM/DL 11.3 GM/DL 11.2 GM/DL Hematocrit 33.7 % 33.4 % 33.3 % Mean Corpuscular Volume 82.1 FL 82.5 FL 82.7 FL Mean Corpuscular Hemoglobin 28.3 PG 27.8 PG 27.8 PG Mean Corpuscular Hemoglobin Concent 34.4 % 33.7 % 33.7 % Red Cell Distribution Width 14.6 % 14.8 % 14.7 % Platelet Count 368 TH/MM3 354 TH/MM3 366 TH/MM3 Mean Platelet Volume 8.9 FL 8.1 FL 7.6 FL Blood Urea Nitrogen 9 MG/DL 10 MG/DL 10 MG/DL Creatinine 0.67 MG/DL 0.58 MG/DL 0.67 MG/DL Random Glucose 156 MG/DL 120 MG/DL 88 MG/DL Calcium Level 9.0 MG/DL 8.7 MG/DL 8.6 MG/DL Sodium Level 134 MEQ/L 133 MEQ/L 131 MEQ/L Potassium Level 4.2 MEQ/L 4.1 MEQ/L 4.1 MEQ/L Chloride Level 101 MEQ/L 100 MEQ/L 95 MEQ/L Carbon Dioxide Level 22.3 MEQ/L 25.1 MEQ/L 28.6 MEQ/L Anion Gap 11 MEQ/L 8 MEQ/L 7 MEQ/L Estimat Glomerular Filtration Rate 85 ML/MIN 101 ML/MIN 85 ML/MIN Hematology Comments (Lauri Rudolph) Medical Decision Making Impression and Plan Impression: 1. Traumatic brain injury with left frontotemporoparietal acute subdural hematoma 2. Occipital skull fracture-close nondepressed 3. Hypertension 4. Diabetes 5. Anxiety disorder 6. GERD The patient is doing well and stable neurologically. Intermittent hypertension. Reviewed labs for this morning. Leukocytosis. Mild anaemia stable. Sodium 131. CT brain essentially unchanged. Physical Therapy recommends inpatient rehab. Plan: Critical care management per [facility]inator. Neuro checks. Stat CT brain for any decline in neuro status. Mechanical DVT prophylaxis. Hold pharmacologic DVT prophylaxis. Stress ulcer prophylaxis. Mobilise patient w/assistance. PT eval & tx. Continue present medication for hypertension with additional when necessary medications. Insulin sliding scale. Maintain SBP between 120 and 160 mm Hg. OT eval & tx. (Lauri Rudolph) Attending Statement The exam, history, and the medical decision-making described in the above note were completed with the assistance of the mid-level provider. I reviewed and agree with the findings presented. I attest that I had a [id number] encounter with the patient on the same day, and personally performed and documented my assessment and findings in the medical record. On my examination 09/21/2017 the patient remains relatively alert. Still with moderate confusion although she knows the month and that she is in the hospital. She states that she has some help at home. Exhibits generally poor judgment and insight. Follow simple commands well. Moves extremities well Therapy notes reviewed Stable from neurosurgical standpoint No neurosurgical intervention planned Patient discharged to detention when medically stable (Terrell Burgess MD) Lauri Rudolph Sep 21, 2017 09:10 Terrell Burgess MD Sep 21, 2017 21:58
[2017-09-21] MEDS: PARoxetine HCL 20 MG TAB PO SCH (09:57)
[2017-09-21] MEDS: LISINOPRIL 20 MG TAB PO SCH (09:57)
[2017-09-21] MEDS: PANTOPRAZOLE SOD 20 MG DELAYED RELEASE TAB PO SCH (09:58)
[2017-09-21] MEDS: QUEtiapine FUMARATE 25 MG TAB PO SCH ×2 (09:58→14:21)
[2017-09-21] MEDS: DOCUSATE SODIUM 100 MG CAP PO SCH ×2 (09:58→21:33)
--- NOTE | 2017-09-21 11:58 | HHI.PR ---
Neuropsych Behavior Behavior: Intact: Impulsive/Agitated Cognitive Cognitive: Severe: Cognitive, Attention/Concentration, Confused/Orientation, Insight/Awareness, Judgement/Problem-Solving, Memory Progress Notes/Response to Tx Contents of Sessions: Adjustment, Level of Consciousness Premorbid psychological status Premorbid Cognitive, Emotional and Behavioral Status: Unable to Assess. The patient was unable to report on her baseline abilities. Behavioral Reactions of Patient and Family/Support System: Unable to Assess. The patients family is experiencing ongoing issues of adjustment given the nature of the injury, and this aspect of recovery will require ongoing monitoring. Emotional/Behavioral Status of Patient and Family/Support System: Unable to Assess. Pertinent issues, if appropriate to this patients clinical care, are described in detail above. Maximizing acute care outcome It is recommended that the patient be monitored for emergent behavioral impulsivity as the medical condition evolves. I will follow her along with you to manage these aspects of her recovery. This patients neuropathological challenges may limit her rehabilitation potential going forward, and these challenges will require specialized therapeutic skills to maximize outcome. At this point in the recovery process, the patient does not have cognitive capacity as the patient is unable to understand a situation and its likely consequences, nor is she able to manipulate information rationally. Cognitive capacity will be assessed throughout the recovery process. Anticipated Problems Ongoing areas of concern will include behavioral impulsivity, lack of insight and judgment, which is expected to improve with time and treatment. Presently , the patient is not following commands. Given the severity of the patient's injuries it is my clinical opinion that this patient will be unable to return to any type of productive employment for at least one year, perhaps longer and likely never. This patient is not considered safe to discharge home with supervision. Treatment Plan This clinician will continue to follow with you throughout the course of this patients acute care treatment, and I will be available to meet with the patient s family/support system to facilitate their understanding and the ongoing care of their family member. The goals of neuropsychological intervention shall be both educational and supportive to the family/support system as is deemed clinically appropriate. [place] Level: V:Confused-non agitated Disinhibition Score: 14.00 Aggression Score: 14.00 Lability Score: 14.00 Agitated Behavior Total Score: 14 Impression This 77 year old woman is s/p TBI 2T fall with agitation/restlessness. I will follow her to assist with agitation management. Diagnosis: (1) Major neurocognitive disorder as late effect of traumatic brain injury with behavioral disturbance Progress Note Narrative Ongoing follow-up of patient seen during daily neuropsychology rounds. This is day 8 post injury. She continues to be calm, non agitated/restless, and confused. Her recent ABS score continues to be 14 (14, 14, 14) and she is managed on Seroquel 50/50/100. Discussed with RN at bedside, corroborating my clinical exam concerning improved agitation/restlessness. She has not received Haldol since 09/19 at 0611. She is emerging [place] V, and will likely continue to have some level of confusion as she progresses. I will continue to follow. Cezar Ny PhD Sep 21, 2017 11:58 am
--- NOTE | 2017-09-21 14:43 | HHI.CCPN ---
Subjective Remarks/Hospital Course 09/13: 77-year-old female. Date of admission 09/13/2017. Date of consultation 09/14/2017. Past medical history includes anxiety, hypertension, gastroesophageal reflux disease, diabetes and hypothyroidism. Previous history of fall 08/26. At that time, she was diagnosed with A right orbital floor fracture with some swelling around the right frontal bone and orbit was noted on maxillofacial CT scan. Today, she is cleaning out her garage. She was fell down. Checks her head. No loss of consciousness. She had no headache, nausea or emesis. No seizure activity reported. She denies any neck or low back pain. No nausea or vomiting. No dizziness or vertigo. No blurred vision or diplopia. CT brain revealed right subgaleal hematoma, left subdural and subarachnoid hemorrhage. Patient was admitted under the care of Dr. Burgess. On 09/13, patient become more agitated. We are asked to patient regards to agitation so she can repeat head CT. Patient is currently arousable but not following commands. Moving all 4 extremity spontaneously. 09/14, 09/15: Remains on Precedex drip. Gets agitated on titrating down Precedex. 09/16: remains on precedex drip, although now at 0.25 mcg/kg/hr. still confused and CAM +, but much calmer and now RASS 0. sodium dropped significantly to 127 today: have ordered serum osms, urine osms, urine sodium, and urine SG. repeat and trend sodiums. 09/17: Stopped Precedex. Patient is awake and alert today. Remains hyponatremic. Tolerating by mouth diet. 09/18: Episodes of agitation. Added Seroquel 100 mg daily today. Awake and alert however not very cooperative and refusing to take meds this morning. Hyponatremia persists. UA still not available. We'll start and is at 50 cc an hour and Samsca 15 mg by mouth 1 dose 09/19: Calmer with With Seroquel. Changed Seroquel dose to 50-50-100 mg. Sodium level up to 134 with 1 dose of samsca. Still gets agitated times and refuses to eat. 09/20: Calm today. Will defer to Neuropsych for atypical antipsychotic meds management. Transfer. 09/21: Persistent hypertension despite beta thee, ca channel thee and KIMBERLY- I. Objective Vital Signs Date Time Temp Pulse Resp B/P (MAP) Pulse Ox O2 Delivery O2 Flow Rate FiO2 09/21/17 08:00 98.1 60 16 184/85 (118) 96 09/20/17 20:26 21 Intake and Output 09/21/17 09/21/17 09/21/17 07:59 15:59 23:59 Intake Total 120 ml Output Total 100 ml Balance 20 ml Result Diagram: 09/21/17 0345 09/21/17 0348 Imaging Last Impressions Head CT 09/13/17 1307 Signed Impressions: Service Date/Time: September 13:56 - CONCLUSION: 1. Acute subdural hematoma along the left frontal, parietal and temporal lobes measuring 5 mm in greatest width. Acute subarachnoid hemorrhage is also noted throughout the left frontal lobe and scattered petechial hemorrhages are also noted within left frontal lobe. There is 4 mm of subfalcine herniation to the right. 2. Acute fracture mild right occipital skull as well as subgaleal hematoma along the right occipital and posterior parietal skull. Mike Laguna MD Cervical Spine CT 09/13/17 1307 Signed Impressions: Service Date/Time: September 13:56 - CONCLUSION: 1. Acute fracture involving right occipital skull base. 2. No definite acute fracture or prevertebral soft tissue swelling within the cervical spine. 3. Mild spinal stenosis at C3-4 and C5-6. 4. Moderate bilateral foraminal narrowing at C5-6, moderate left neuroforaminal at C6-7 and moderate right neural foraminal narrowing at C3-4. 5. Diffuse cervical spondylosis from C2 through C7. 6. Degenerative changes and scoliosis of the cervical spine. Mike Laguna MD Objective Remarks GENERAL: 77-year-old female currently resting. SKIN: Warm and dry. EYES: Pupils equal and round. No scleral icterus. No injection or drainage. ENT: No nasal bleeding or discharge. Mucous membranes pink and moist. NECK: Trachea midline. Airway widely patent. No obstruction. CARDIOVASCULAR: Regular rate and rhythm. No JVD. RESPIRATORY: No accessory muscle use. equal chest rise. Comfortable. GASTROINTESTINAL: Abdomen soft, non-tender, nondistended. No guarding. MUSCULOSKELETAL: Extremities without clubbing, cyanosis, or edema. No obvious deformities. Well perfused. NEUROLOGICAL: Lethargic. Confused. No obvious cranial nerve deficits. Motor grossly normal. Moving all 4 extremities spontaneously A/P Assessment and Plan Neuro/Psych: Left frontotemporal parietal acute subdural hematoma Left frontal subarachnoid hemorrhage Right occipital nondisplaced skull fracture Right parietal occipital subcutaneous galeal hematoma C3 through C6 moderate canal stenosis and C5 to C7 moderate bilateral foraminal stenosis Depression/anxiety Chronic narcotic use Delirium/ encephalopathy Continue paroxetine 20 mg by mouth daily home medication for depression/anxiety Continue oxycodone/acetaminophen 5/325 one tablet every 6 hours. Pain Off Precedex since 09/17. Started Seroquel 100 mg by mouth daily on 09/28. Neuropsych consult for agitation/ delirium CT brain 09/13 - 4mm maximum thickness left frontotemporoparietal acute subdural hematoma with mild to moderate mass effect, approximate 4 mm midline shift which is mostly confined to the left frontal region. Small amount of subarachnoid hemorrhage and contusion in the left frontal lobe is noted. There is a right occipital nondisplaced skull fracture. Right parieto-occipital subgaleal hematoma. Cervical spine CT scan 09/13/2017 in mild to moderate diffuse degenerative changes with mild C3 4 and moderate C5 6 canal stenosis and moderate bilateral C5 6 and C6 7 foraminal stenosis. No evidence of significant cord compression. No acute fracture or subluxation. The occipital bone fracture is noted. Repeat neuro imaging per neurosurgery. CV: Hypertension Currently on propranolol 20 mg by mouth daily lisinopril 20 mg by mouth daily and Norvasc 10 mg by mouth daily started on 09/17 As needed labetalol 10 mg every hour as needed systolic pressure is 160 Add hydralazine Resp: Nasal cannula to maintain saturations greater than equal to 92% Incentive spirometry while awake GI: Gastroesophageal reflux disease Currently on pantoprazole 20 mg by mouth daily. On omeprazole 20 mg by mouth daily at home for gastroesophageal reflux disease Docusate sodium 100 mg by mouth twice a day for bowel regimen : No indication for Watts catheter Endo: Diabetes mellitus Hypothyroidism Currently on glipizide 5 mg twice a day and Novulin R SSI with Accu-Cheks before meals/at bedtime to maintain euglycemia/low regimen Continue levothyroxine 100 mcg by mouth daily for hypothyroidism Renal: Creatinine currently within normal limits Monitor urine output Accurate I's and O's Heme: CBC within normal limits Does not meet transfusion thresholds at this time Coags normal ID: Monitor for infection FEN: Hyponatremia Replace electrolytes as clinically indicated unclear etiology of hyponatremia: ordered urine and serum osms, urine sodium, urine SG. recheck and trend sodium. NS at 50 cc/h started on 09/18. Samsca 15 mg by mouth times one dose ordered on . Follow serial sodium levels. Most likely SIADH MSK: PT evaluate and treat Access - Utilize peripheral IVs. Central line if indicated Prophylaxis - GI - pantoprazole - DVT - SCD/holding pharmacological prophylaxis until okay with neurosurgery Consult and transfer to hospitalist service for further medical management. Transfer out of ICU. Steven Landis MD Sep 21, 2017 14:43
[2017-09-21] MEDS: hydrALAZINE HCL 50 MG TAB PO SCH ×2 (14:45→21:33)
[2017-09-21] MEDS: QUEtiapine FUMARATE 100 MG TAB PO SCH (21:33)
[2017-09-21] MEDS: HALOPERIDOL LACTATE 5 MG/ML AMP IV PRN (22:36)
[2017-09-22] VITALS (7 sets, daily range): BP systolic 101–153; BP diastolic 55–87; PULSE 62–72; RESP 13–20; TEMP 97.7–98.6; O2SAT 95–100
[2017-09-22] MEDS: NS + KCL 40 MEQ INJ 1,000 ML IV SCH ×2 (04:25→22:14)
[2017-09-22] MEDS: LEVOTHYROXINE SODIUM 100 MCG TAB PO SCH ×2 (06:00→06:29)
[2017-09-22] MEDS: hydrALAZINE HCL 50 MG TAB PO SCH ×4 (06:00→22:16)
[2017-09-22] MEDS: PROPRANOLOL HCL 20 MG TAB PO SCH ×4 (06:00→22:16)
[2017-09-22] MEDS: glipiZIDE 5 MG TAB PO SCH ×2 (07:00→14:58)
[2017-09-22 07:06] LABS: AMORPHOUS SEDIMENT, URINE RARE; BILIRUBIN, URINE NEG (NEG); BLOOD, URINE NEG (NEG); GLUCOSE,URINE NEG (NEG); KETONE, URINE NEG (NEG); NITRITE,URINE NEG (NEG); SQUAMOUS EPITHELIAL CELL URINE 4 /hpf (0-5); TRANSITIONAL EPI CELLS, URINE <1 /hpf; URINE COLOR YELLOW (YELLW/STRAW); URINE LEUKOCYTE ESTERASE LARGE (NEG)
[2017-09-22 07:13] LABS: BACTERIA, URINE MANY /hpf
--- NOTE | 2017-09-22 07:24 | HHI.PR ---
Subjective Remarks Patient seen and examined this morning. Vitals are stable and she is afebrile. Intermittent elevated BP. Resting comfortably but easily awakens. She is in 4 point restraints. Speaks nonsensically at time. Objective Vital Signs Date Time Temp Pulse Resp B/P (MAP) Pulse Ox O2 Delivery O2 Flow Rate FiO2 09/22/17 04:00 98.3 62 20 153/87 (109) 100 09/22/17 04:00 68 09/22/17 00:00 72 09/22/17 00:00 97.7 70 16 114/57 (76) 99 09/21/17 21:26 97 21 09/21/17 20:00 97.8 66 22 156/74 (101) 97 09/21/17 20:00 69 09/21/17 16:00 62 09/21/17 16:00 97.3 62 16 105/58 (74) 98 09/21/17 12:00 62 09/21/17 08:00 98.1 60 16 184/85 (118) 96 09/21/17 08:00 60 I/O 09/21/17 09/21/17 09/21/17 09/22/17 09/22/17 09/22/17 07:00 15:00 23:00 07:00 15:00 23:00 Intake Total 120 ml 240 ml 1423 ml Output Total 100 ml Balance 20 ml 240 ml 1423 ml Intake Oral 120 ml 240 ml 360 ml IV Total 1063 ml Output Urine Total 100 ml # Voids 3 3 # Bowel Movements 0 1 1 Result Diagram: 09/21/17 0345 09/21/17 0348 Imaging Last Impressions Head CT 09/14/17 0600 Signed Impressions: Service Date/Time: Thursday, September 14, 2017 04:26 - CONCLUSION: No significant interval change. Left sided subdural hematoma and left frontal parenchymal hemorrhage again seen. Geovany Woods MD Cervical Spine CT 09/13/17 1307 Signed Impressions: Service Date/Time: September 13:56 - CONCLUSION: 1. Acute fracture involving right occipital skull base. 2. No definite acute fracture or prevertebral soft tissue swelling within the cervical spine. 3. Mild spinal stenosis at C3-4 and C5-6. 4. Moderate bilateral foraminal narrowing at C5-6, moderate left neuroforaminal at C6-7 and moderate right neural foraminal narrowing at C3-4. 5. Diffuse cervical spondylosis from C2 through C7. 6. Degenerative changes and scoliosis of the cervical spine. Mike Laguna MD Objective Remarks GENERAL: Resting comfortably in no acute distress SKIN: Warm and dry. HEAD: Normocephalic. EYES: No scleral icterus. No injection or drainage. NECK: Supple, trachea midline. No JVD or lymphadenopathy. CARDIOVASCULAR: Regular rate and rhythm without murmurs, gallops, or rubs. RESPIRATORY: Breath sounds equal bilaterally. No accessory muscle use. GASTROINTESTINAL: Abdomen soft, non-tender, nondistended. MUSCULOSKELETAL: No cyanosis, or edema. Bilateral SCDs, 4 point restraints. A/P Problem List: (1) HTN (hypertension) ICD Code: I10 - Essential (primary) hypertension (2) Hypothyroidism ICD Code: E03.9 - Hypothyroidism, unspecified (3) Diabetes ICD Code: E11.9 - Type 2 diabetes mellitus without complications (4) Skull fracture ICD Code: S02.91XA - Unspecified fracture of skull, initial encounter for closed fracture Status: Acute (5) Subdural hematoma ICD Code: I62.00 - Nontraumatic subdural hemorrhage, unspecified Status: Acute Assessment and Plan This is a 77-year-old female patient to suffered a fall on 08/26 and09/13/17. In August she was diagnosed with a right orbital floor fracture with some swelling on the right frontal bone. Generally fourth CT will was significant for right subgaleal hematoma, left subdural and subarachnoid hemorrhage. She was admitted to Dr. Burgess and was consulted for critical care. Trauma Left frontotemporal parietal acute subdural hematoma Left frontal subarachnoid hemorrhage Right occipital nondisplaced skull fracture Right parietal occipital subcutaneous galeal hematoma C3 through C6 moderate canal stenosis and C5 to C7 moderate bilateral foraminal stenosis - See imaging above - Followed by neurosurgery - Followed by neuropsychology, helping to establish cognitive baseline Hypertension - Continue propranolol 20 mg by mouth daily, lisinopril 20 mg daily, Norvasc 10 mg daily - Labetalol 10 mg when necessary, hydralazine when necessary - Overall better controlled Diabetes - Glipizide 5 mg twice a day - Supplemental sliding scale Hypothyroidism - Continue home levothyroxine 100 g daily DVT prophylaxis: SCDs, holding pharmacological therapy until cleared by neurosurgery GI prophylaxis: Protonix 20 mg daily Nasal cannula when necessary Discharge Planning Pending clinical stabilization and clearance by neurosurgery. Antonette Santos MD Sep 22, 2017 07:24
[2017-09-22 07:36] LABS: HEMATOCRIT 33.6 % (35.0-46.0); HEMOGLOBIN 11.5 GM/DL (11.6-15.3); MEAN CELL VOLUME 81.5 FL (80.0-100.0); MEAN CORPUSCULAR HGB CONC 34.3 % (32.0-36.0); MEAN PLATELET VOLUME 7.6 FL (7.0-11.0); PLATELET COUNT 374 TH/MM3 (150-450); RED BLOOD COUNT 4.12 MIL/MM3 (4.00-5.30); RED CELL DISTRIBUTION WIDTH 14.7 % (11.6-17.2); WHITE BLOOD COUNT 11.7 TH/MM3 (4.0-11.0)
[2017-09-22 07:45] LABS: SODIUM,RANDOM URINE 143 MEQ/L
[2017-09-22 07:59] LABS: BICARBONATE 24.7 MEQ/L (21.0-32.0); CALCIUM 8.4 MG/DL (8.5-10.1); CREATININE 0.58 MG/DL (0.50-1.00)
[2017-09-22] MEDS: INSULIN NovoLIN REGULAR SUPPLEMENTAL SCALE SQ SCH ×4 (08:00→21:00)
[2017-09-22 08:36] LABS: OSMOLALITY,URINE 458 MOSM/KG (300-1300)
[2017-09-22] MEDS: PANTOPRAZOLE SOD 20 MG DELAYED RELEASE TAB PO SCH (09:00)
[2017-09-22] MEDS: DOCUSATE SODIUM 100 MG CAP PO SCH ×2 (09:00→22:15)
--- NOTE | 2017-09-22 10:21 | HHI.NSPN ---
History Chief Complaint: None. Interval History 09/13: 77-year-old female who previously presented to the emergency room on 08/16 after falling at home after she tripped while going to her mailbox. She struck the right side of the face without loss of consciousness. In the emergency room she was noted to have right periorbital ecchymosis. A right orbital floor fracture with some swelling around the right frontal bone and orbit was noted on maxillofacial CT scan. She fell again today for cleaning out her garage. She states that she was down on her knees and only fell forward slightly. She actually does remember hitting her head. Again no definite loss of consciousness but was noted to be somewhat confused at the scene. She presented to the emergency room at [facility] without significant headache and no nausea or emesis. No seizure activity reported. She denies any neck or low back pain. No nausea or vomiting. No dizziness or vertigo. No blurred vision or diplopia. 09/14: The patient is lethargic when seen but does have dexmedetomidine infusing for sedation. She briefly arouses to noxious stimulation. Her speech is soft and muffled. She is confused. She does move all extremities spontaneously and to command but not appropriately. She does not seem to comprehend some of what is being said to her. She did deny any headache, dizziness or nausea. Nursing reports that without the dexmedetomidine the patient is extremely agitated. She was oriented to person only for Nursing but did follow commands and was moving everything. 09/15: becomes very agitated, on Precedex. opens eyes and moves all four. 09/16: arouses, confused, oriented to name only, becomes restless in bed, on four point restraints. she does deny headaches, nausea, or vomiting. no reports of seizures overnight. 09/17: The patient is sitting up with the bed in chair position and talking with a family member. She is in four point restraints. No sedation infusing. She is oriented to person, being in the hospital and month. She does follow simple commands without difficulty and moves all extremities spontaneously. She has been intermittently hypertensive. Nursing reports that the patient doesn't have any PRN medication for hypertension. 09/18: 77-year-old female status post fall with left frontal contusion- subarachnoid hemorrhage. Has remained somewhat confused during hospitalization. 09/20: When seen this morning the patient was asleep in the chair. She did awaken to voice and readily interacted. She followed some commands but had difficulty with others. She continues to have confusion as well as receptive aphasia. She denies any headache but does say "a little bit" when asked if she had any dizziness. 09/21: This morning the patient is asleep but awakens to voice. She says she is doing good. She had no complaints. She did follow commands and moved all extremities spontaneously. She was confused as to time and place. 09/22: Patient awake and alert. She is conversive and has no complaints. Exam Results Vital Signs Date Time Temp Pulse Resp B/P (MAP) Pulse Ox O2 Delivery O2 Flow Rate FiO2 09/22/17 04:00 98.3 62 20 153/87 (109) 100 09/21/17 21:26 21 Intake and Output 09/22/17 09/22/17 09/23/17 08:00 16:00 00:00 Intake Total 1423 ml Balance 1423 ml Physical Examination Patient is awake and alert oriented to herself and her age. Confused thought current urine date. Speech is intact to content and comprehension and she follows all commands without difficulty. Cranial nerves are intact. Moves upper and lower extremities equally and without deficit. Lab, Micro, Other Results Laboratory Tests Test 09/22/17 05:54 09/22/17 06:20 White Blood Count 11.7 Red Blood Count 4.12 Hemoglobin 11.5 Hematocrit 33.6 Mean Corpuscular Volume 81.5 Mean Corpuscular Hemoglobin 28.0 Mean Corpuscular Hemoglobin Concent 34.3 Red Cell Distribution Width 14.7 Platelet Count 374 Mean Platelet Volume 7.6 Blood Urea Nitrogen 10 Creatinine 0.58 Random Glucose 127 Calcium Level 8.4 Sodium Level 127 Potassium Level 3.9 Chloride Level 92 Carbon Dioxide Level 24.7 Anion Gap 10 Estimat Glomerular Filtration Rate 101 Urine Color YELLOW Urine Turbidity HAZY Urine pH 7.0 Urine Specific [place] 1.010 Urine Protein NEG Urine Glucose (UA) NEG Urine Ketones NEG Urine Occult Blood NEG Urine Nitrite NEG Urine Bilirubin NEG Urine Urobilinogen 2.0 Urine Leukocyte Esterase LARGE Urine RBC 10 Urine WBC 12 Urine Squamous Epithelial Cells 4 Urine Transitional Epithelial Cells <1 Urine Amorphous Sediment RARE Urine Bacteria MANY Urine Osmolality 458 Urine Random Sodium 143 Medical Decision Making Impression and Plan Impression: 1. Traumatic brain injury with left frontotemporoparietal acute subdural hematoma 2. Occipital skull fracture-close nondepressed 3. Hypertension 4. Diabetes 5. Anxiety disorder 6. GERD The patient is doing well and stable neurologically. Intermittent hypertension. CT brain essentially unchanged. Physical Therapy recommends inpatient rehab. Plan: Critical care management per [employer]. Neuro checks. Stat CT brain for any decline in neuro status. Mechanical DVT prophylaxis. Hold pharmacologic DVT prophylaxis. Stress ulcer prophylaxis. Mobilise patient w/assistance. PT eval & tx. Continue present medication for hypertension with additional when necessary medications. Insulin sliding scale. Maintain SBP between 120 and 160 mm Hg. OT eval & tx. Froilan Daniel MD Sep 22, 2017 10:21
[2017-09-22] MEDS: PARoxetine HCL 20 MG TAB PO SCH (10:57)
[2017-09-22] MEDS: LISINOPRIL 20 MG TAB PO SCH (10:57)
[2017-09-22] MEDS: QUEtiapine FUMARATE 25 MG TAB PO SCH ×2 (10:58→14:59)
[2017-09-22] MEDS: QUEtiapine FUMARATE 100 MG TAB PO SCH (22:15)
[2017-09-23] VITALS (7 sets, daily range): BP systolic 109–153; BP diastolic 56–80; PULSE 68–76; RESP 17–23; TEMP 97.2–98.8; O2SAT 97–100
[2017-09-23] MEDS: hydrALAZINE HCL 50 MG TAB PO SCH ×3 (05:35→20:18)
[2017-09-23] MEDS: PROPRANOLOL HCL 20 MG TAB PO SCH ×3 (05:35→20:18)
[2017-09-23] MEDS: LEVOTHYROXINE SODIUM 100 MCG TAB PO SCH (05:36)
[2017-09-23 07:15] LABS: HEMATOCRIT 36.8 % (35.0-46.0); MEAN CELL VOLUME 83.2 FL (80.0-100.0); MEAN CORPUSCULAR HEMOGLOBIN 27.2 PG (27.0-34.0); MEAN CORPUSCULAR HGB CONC 32.7 % (32.0-36.0); MEAN PLATELET VOLUME 7.5 FL (7.0-11.0); PLATELET COUNT 353 TH/MM3 (150-450); RED BLOOD COUNT 4.42 MIL/MM3 (4.00-5.30); RED CELL DISTRIBUTION WIDTH 14.5 % (11.6-17.2); WHITE BLOOD COUNT 12.9 TH/MM3 (4.0-11.0)
[2017-09-23 07:16] LABS: BICARBONATE 22.6 MEQ/L (21.0-32.0); CALCIUM 8.8 MG/DL (8.5-10.1); CREATININE 0.68 MG/DL (0.50-1.00)
[2017-09-23] MEDS: INSULIN NovoLIN REGULAR SUPPLEMENTAL SCALE SQ SCH ×4 (07:57→21:00)
[2017-09-23] MEDS: PANTOPRAZOLE SOD 20 MG DELAYED RELEASE TAB PO SCH (08:02)
[2017-09-23] MEDS: DOCUSATE SODIUM 100 MG CAP PO SCH ×2 (08:02→20:18)
[2017-09-23] MEDS: glipiZIDE 5 MG TAB PO SCH ×2 (08:02→17:07)
[2017-09-23] MEDS: QUEtiapine FUMARATE 25 MG TAB PO SCH ×2 (08:03→14:57)
[2017-09-23] MEDS: LISINOPRIL 20 MG TAB PO SCH (08:03)
[2017-09-23] MEDS: PARoxetine HCL 20 MG TAB PO SCH (08:03)
--- NOTE | 2017-09-23 09:39 | HHI.NSPN ---
History Chief Complaint: None. Interval History 09/13: 77-year-old female who previously presented to the emergency room on 08/16 after falling at home after she tripped while going to her mailbox. She struck the right side of the face without loss of consciousness. In the emergency room she was noted to have right periorbital ecchymosis. A right orbital floor fracture with some swelling around the right frontal bone and orbit was noted on maxillofacial CT scan. She fell again today for cleaning out her garage. She states that she was down on her knees and only fell forward slightly. She actually does remember hitting her head. Again no definite loss of consciousness but was noted to be somewhat confused at the scene. She presented to the emergency room at [facility] without significant headache and no nausea or emesis. No seizure activity reported. She denies any neck or low back pain. No nausea or vomiting. No dizziness or vertigo. No blurred vision or diplopia. 09/14: The patient is lethargic when seen but does have dexmedetomidine infusing for sedation. She briefly arouses to noxious stimulation. Her speech is soft and muffled. She is confused. She does move all extremities spontaneously and to command but not appropriately. She does not seem to comprehend some of what is being said to her. She did deny any headache, dizziness or nausea. Nursing reports that without the dexmedetomidine the patient is extremely agitated. She was oriented to person only for Nursing but did follow commands and was moving everything. 09/15: becomes very agitated, on Precedex. opens eyes and moves all four. 09/16: arouses, confused, oriented to name only, becomes restless in bed, on four point restraints. she does deny headaches, nausea, or vomiting. no reports of seizures overnight. 09/17: The patient is sitting up with the bed in chair position and talking with a family member. She is in four point restraints. No sedation infusing. She is oriented to person, being in the hospital and month. She does follow simple commands without difficulty and moves all extremities spontaneously. She has been intermittently hypertensive. Nursing reports that the patient doesn't have any PRN medication for hypertension. 09/18: 77-year-old female status post fall with left frontal contusion- subarachnoid hemorrhage. Has remained somewhat confused during hospitalization. 09/20: When seen this morning the patient was asleep in the chair. She did awaken to voice and readily interacted. She followed some commands but had difficulty with others. She continues to have confusion as well as receptive aphasia. She denies any headache but does say "a little bit" when asked if she had any dizziness. 09/21: This morning the patient is asleep but awakens to voice. She says she is doing good. She had no complaints. She did follow commands and moved all extremities spontaneously. She was confused as to time and place. 09/22: Patient awake and alert. She is conversive and has no complaints. 09/23: Patient remains awake and alert. No complaints. Exam Results Vital Signs Date Time Temp Pulse Resp B/P (MAP) Pulse Ox O2 Delivery O2 Flow Rate FiO2 09/23/17 08:16 97 21 09/23/17 08:00 97.8 71 17 153/67 (95) Intake and Output 09/23/17 09/23/17 09/24/17 08:00 16:00 00:00 Intake Total 260 ml Output Total 0 ml Balance 260 ml Physical Examination Patient is awake and alert oriented to herself and her age. Confused thought current urine date. Speech is intact to content and comprehension and she follows all commands without difficulty. Cranial nerves are intact. Moves upper and lower extremities equally and without deficit. Lab, Micro, Other Results Laboratory Tests Test 09/23/17 05:39 White Blood Count 12.9 Red Blood Count 4.42 Hemoglobin 12.0 Hematocrit 36.8 Mean Corpuscular Volume 83.2 Mean Corpuscular Hemoglobin 27.2 Mean Corpuscular Hemoglobin Concent 32.7 Red Cell Distribution Width 14.5 Platelet Count 353 Mean Platelet Volume 7.5 Blood Urea Nitrogen 7 Creatinine 0.68 Random Glucose 115 Calcium Level 8.8 Sodium Level 124 Potassium Level 4.0 Chloride Level 90 Carbon Dioxide Level 22.6 Anion Gap 11 Estimat Glomerular Filtration Rate 84 Medical Decision Making Impression and Plan Impression: 1. Traumatic brain injury with left frontotemporoparietal acute subdural hematoma 2. Occipital skull fracture-close nondepressed 3. Hypertension 4. Diabetes 5. Anxiety disorder 6. GERD The patient is doing well and stable neurologically. Intermittent hypertension. CT brain essentially unchanged. Physical Therapy recommends inpatient rehab. Plan: Critical care management per [employer]. Neuro checks. Stat CT brain for any decline in neuro status. Mechanical DVT prophylaxis. Hold pharmacologic DVT prophylaxis. Stress ulcer prophylaxis. Mobilise patient w/assistance. PT eval & tx. Continue present medication for hypertension with additional when necessary medications. Insulin sliding scale. Maintain SBP between 120 and 160 mm Hg. OT eval & tx. Froilan Daniel MD Sep 23, 2017 09:39
--- NOTE | 2017-09-23 13:33 | HHI.PR ---
Subjective Remarks Patient seen and examined this morning. Vitals are stable and she is afebrile. Sleeping comfortably, easily awakens, denies any complaints. Feels well. Objective Vital Signs Date Time Temp Pulse Resp B/P (MAP) Pulse Ox O2 Delivery O2 Flow Rate FiO2 09/23/17 08:16 97 21 09/23/17 08:00 97.8 71 17 153/67 (95) 99 09/23/17 08:00 71 09/23/17 04:00 98.8 75 23 132/72 (92) 98 09/23/17 04:00 76 09/23/17 00:00 74 09/23/17 00:00 98.7 73 23 133/80 (97) 97 09/22/17 20:00 98.6 66 13 101/55 (70) 95 09/22/17 20:00 65 09/22/17 19:29 96 09/22/17 16:23 98.3 62 18 142/63 (89) 96 09/22/17 16:23 62 I/O 09/22/17 09/22/17 09/22/17 09/23/17 09/23/17 09/23/17 07:00 15:00 23:00 07:00 15:00 23:00 Intake Total 1423 ml 260 ml Output Total 400 ml 0 ml Balance 1423 ml -400 ml 260 ml Intake Oral 360 ml 260 ml IV Total 1063 ml Output Urine Total 400 ml Stool Total 0 ml # Voids 3 4 # Bowel Movements 1 Result Diagram: 09/23/17 0539 09/23/17 0539 Imaging Last Impressions Head CT 09/14/17 0600 Signed Impressions: Service Date/Time: Thursday, September 14, 2017 04:26 - CONCLUSION: No significant interval change. Left sided subdural hematoma and left frontal parenchymal hemorrhage again seen. Geovany Woods MD Cervical Spine CT 09/13/17 1307 Signed Impressions: Service Date/Time: September 13:56 - CONCLUSION: 1. Acute fracture involving right occipital skull base. 2. No definite acute fracture or prevertebral soft tissue swelling within the cervical spine. 3. Mild spinal stenosis at C3-4 and C5-6. 4. Moderate bilateral foraminal narrowing at C5-6, moderate left neuroforaminal at C6-7 and moderate right neural foraminal narrowing at C3-4. 5. Diffuse cervical spondylosis from C2 through C7. 6. Degenerative changes and scoliosis of the cervical spine. Mike Laguna MD Objective Remarks GENERAL: Resting comfortably in no acute distress SKIN: Warm and dry. HEAD: Normocephalic. EYES: No scleral icterus. No injection or drainage. NECK: Supple, trachea midline. No JVD or lymphadenopathy. CARDIOVASCULAR: Regular rate and rhythm without murmurs, gallops, or rubs. RESPIRATORY: Breath sounds equal bilaterally. No accessory muscle use. GASTROINTESTINAL: Abdomen soft, non-tender, nondistended. MUSCULOSKELETAL: No cyanosis, or edema. Bilateral SCDs. A/P Problem List: (1) HTN (hypertension) ICD Code: I10 - Essential (primary) hypertension (2) Hypothyroidism ICD Code: E03.9 - Hypothyroidism, unspecified (3) Diabetes ICD Code: E11.9 - Type 2 diabetes mellitus without complications (4) Skull fracture ICD Code: S02.91XA - Unspecified fracture of skull, initial encounter for closed fracture Status: Acute (5) Subdural hematoma ICD Code: I62.00 - Nontraumatic subdural hemorrhage, unspecified Status: Acute Assessment and Plan This is a 77-year-old female patient to suffered a fall on 08/26 and09/13/17. In August she was diagnosed with a right orbital floor fracture with some swelling on the right frontal bone. Generally fourth CT will was significant for right subgaleal hematoma, left subdural and subarachnoid hemorrhage. She was admitted to Dr. Burgess and was consulted for critical care. Trauma Left frontotemporal parietal acute subdural hematoma Left frontal subarachnoid hemorrhage Right occipital nondisplaced skull fracture Right parietal occipital subcutaneous galeal hematoma C3 through C6 moderate canal stenosis and C5 to C7 moderate bilateral foraminal stenosis - See imaging above - Followed by neurosurgery - Followed by neuropsychology, helping to establish cognitive baseline Hypertension - Continue propranolol 20 mg by mouth daily, lisinopril 20 mg daily, Norvasc 10 mg daily - Labetalol 10 mg when necessary, hydralazine when necessary - Overall better controlled Diabetes - Glipizide 5 mg twice a day - Supplemental sliding scale Hypothyroidism - Continue home levothyroxine 100 g daily DVT prophylaxis: SCDs, holding pharmacological therapy until cleared by neurosurgery Fluids: some hyponatremia noted, will start on gentle hydration NS 40 cc/hr, restrict free water < 2L GI prophylaxis: Protonix 20 mg daily Nasal cannula when necessary Discharge Planning Pending clinical stabilization and clearance by neurosurgery. Antonette Santos MD Sep 23, 2017 13:33
[2017-09-23] MEDS: SODIUM CHLOR 0.9% 1000 ML INJ 1,000 ML IV SCH (14:57)
[2017-09-23] MEDS: QUEtiapine FUMARATE 100 MG TAB PO SCH (20:18)
[2017-09-24] VITALS (7 sets, daily range): BP systolic 93–157; BP diastolic 52–97; PULSE 60–70; RESP 12–23; TEMP 97.5–98.1; O2SAT 97–99
[2017-09-24] MEDS: glipiZIDE 5 MG TAB PO SCH ×2 (06:07→16:45)
[2017-09-24] MEDS: hydrALAZINE HCL 50 MG TAB PO SCH ×3 (06:07→21:35)
[2017-09-24] MEDS: PROPRANOLOL HCL 20 MG TAB PO SCH ×3 (06:07→21:35)
[2017-09-24] MEDS: LEVOTHYROXINE SODIUM 100 MCG TAB PO SCH (06:07)
[2017-09-24] MEDS: INSULIN NovoLIN REGULAR SUPPLEMENTAL SCALE SQ SCH ×4 (08:00→21:00)
--- NOTE | 2017-09-24 08:14 | HHI.PR ---
Neuropsych Behavior Behavior: Mild: Impulsive/Agitated Cognitive Cognitive: Severe: Cognitive, Attention/Concentration, Confused/Orientation, Insight/Awareness, Judgement/Problem-Solving, Memory Progress Notes/Response to Tx Contents of Sessions: Adjustment, Level of Consciousness Time with Patient: 15 minutes Premorbid psychological status Premorbid Cognitive, Emotional and Behavioral Status: Unable to Assess. The patient was unable to report on her baseline abilities. Behavioral Reactions of Patient and Family/Support System: Unable to Assess. The patients family is experiencing ongoing issues of adjustment given the nature of the injury, and this aspect of recovery will require ongoing monitoring. Emotional/Behavioral Status of Patient and Family/Support System: Unable to Assess. Pertinent issues, if appropriate to this patients clinical care, are described in detail above. Maximizing acute care outcome It is recommended that the patient be monitored for emergent behavioral impulsivity as the medical condition evolves. I will follow her along with you to manage these aspects of her recovery. This patients neuropathological challenges may limit her rehabilitation potential going forward, and these challenges will require specialized therapeutic skills to maximize outcome. At this point in the recovery process, the patient does not have cognitive capacity as the patient is unable to understand a situation and its likely consequences, nor is she able to manipulate information rationally. Cognitive capacity will be assessed throughout the recovery process. Anticipated Problems Ongoing areas of concern will include behavioral impulsivity, lack of insight and judgment, which is expected to improve with time and treatment. Presently , the patient is not following commands. Given the severity of the patient's injuries it is my clinical opinion that this patient will be unable to return to any type of productive employment for at least one year, perhaps longer and likely never. This patient is not considered safe to discharge home with supervision. Treatment Plan This clinician will continue to follow with you throughout the course of this patients acute care treatment, and I will be available to meet with the patient s family/support system to facilitate their understanding and the ongoing care of their family member. The goals of neuropsychological intervention shall be both educational and supportive to the family/support system as is deemed clinically appropriate. [place] Level: IV:Confused/Agitated-maximal assist Disinhibition Score: 22.68 Aggression Score: 14.00 Lability Score: 18.62 Agitated Behavior Total Score: 20 Impression This 77 year old woman is s/p TBI 2T fall with agitation/restlessness. I will follow her to assist with agitation management. Diagnosis: (1) Major neurocognitive disorder as late effect of traumatic brain injury with behavioral disturbance Progress Note Narrative Ongoing follow-up of patient seen during daily neuropsychology rounds. This is day 11 post injury. The patient's agitation/restlessness is improved, with ABS of 20 (22, 14, 18.6) meaning right at the cut-off for disinhibited agitation. She has not received Haldol since 09/21 at 2236. She is being maintained on Seroquel 50/50/100. I would suggest keeping her as is in terms of pharmacological management at the time. She is Rancho IV. I discussed with RN at bedside. I will continue to follow. Cezar Ny PhD Sep 24, 2017 8:14 am
[2017-09-24] MEDS: QUEtiapine FUMARATE 25 MG TAB PO SCH ×2 (08:33→14:48)
[2017-09-24] MEDS: PARoxetine HCL 20 MG TAB PO SCH (08:33)
[2017-09-24] MEDS: PANTOPRAZOLE SOD 20 MG DELAYED RELEASE TAB PO SCH (08:33)
[2017-09-24] MEDS: LISINOPRIL 20 MG TAB PO SCH (08:33)
[2017-09-24] MEDS: DOCUSATE SODIUM 100 MG CAP PO SCH ×2 (08:34→21:35)
--- NOTE | 2017-09-24 09:43 | HHI.NSPN ---
(Lauri RudolphInessa GONCALVESP) History Chief Complaint: Slight headache. (Lauri Rudolph) Interval History 09/13: 77-year-old female who previously presented to the emergency room on 08/16 after falling at home after she tripped while going to her mailbox. She struck the right side of the face without loss of consciousness. In the emergency room she was noted to have right periorbital ecchymosis. A right orbital floor fracture with some swelling around the right frontal bone and orbit was noted on maxillofacial CT scan. She fell again today for cleaning out her garage. She states that she was down on her knees and only fell forward slightly. She actually does remember hitting her head. Again no definite loss of consciousness but was noted to be somewhat confused at the scene. She presented to the emergency room at [facility] without significant headache and no nausea or emesis. No seizure activity reported. She denies any neck or low back pain. No nausea or vomiting. No dizziness or vertigo. No blurred vision or diplopia. 09/14: The patient is lethargic when seen but does have dexmedetomidine infusing for sedation. She briefly arouses to noxious stimulation. Her speech is soft and muffled. She is confused. She does move all extremities spontaneously and to command but not appropriately. She does not seem to comprehend some of what is being said to her. She did deny any headache, dizziness or nausea. Nursing reports that without the dexmedetomidine the patient is extremely agitated. She was oriented to person only for Nursing but did follow commands and was moving everything. 09/15: becomes very agitated, on Precedex. opens eyes and moves all four. 09/16: arouses, confused, oriented to name only, becomes restless in bed, on four point restraints. she does deny headaches, nausea, or vomiting. no reports of seizures overnight. 09/17: The patient is sitting up with the bed in chair position and talking with a family member. She is in four point restraints. No sedation infusing. She is oriented to person, being in the hospital and month. She does follow simple commands without difficulty and moves all extremities spontaneously. She has been intermittently hypertensive. Nursing reports that the patient doesn't have any PRN medication for hypertension. 09/18: 77-year-old female status post fall with left frontal contusion- subarachnoid hemorrhage. Has remained somewhat confused during hospitalization. 09/20: When seen this morning the patient was asleep in the chair. She did awaken to voice and readily interacted. She followed some commands but had difficulty with others. She continues to have confusion as well as receptive aphasia. She denies any headache but does say "a little bit" when asked if she had any dizziness. 09/21: This morning the patient is asleep but awakens to voice. She says she is doing good. She had no complaints. She did follow commands and moved all extremities spontaneously. She was confused as to time and place. 09/22: Patient awake and alert. She is conversive and has no complaints. 09/23: Patient remains awake and alert. No complaints. 09/24: The patient was asleep but awakens to voice. She does interact and talk but when asked to reach up and squeeze this practitioner's hand she starts picking at the blanket. When this practitioner placed his hand in her's she did squeeze to command. She is oriented to person and place but not time. She does say she didn't feel good this morning but she is doing better when seen. She did endorse a slight headache and some dizziness. (Lauri Rudolph) Exam Results 09/22/17 09/22/17 09/23/17 09/23/17 09/24/17 09/24/17 06:00 18:00 06:00 18:00 06:00 18:00 Intake Total 1423 ml 260 ml 260 ml 360 ml Output Total 400 ml 425 ml 250 ml Balance 1423 ml -140 ml -165 ml 110 ml Intake Oral 360 ml 260 ml 260 ml 360 ml IV Total 1063 ml Output Urine Total 400 ml 425 ml 250 ml Stool Total 0 ml 0 ml # Voids 3 4 1 # Bowel Movements 1 0 Vital Signs Date Time Temp Pulse Resp B/P (MAP) Pulse Ox O2 Delivery O2 Flow Rate FiO2 09/24/17 04:00 98.1 64 23 129/64 (85) 97 09/24/17 04:00 64 09/24/17 00:00 70 09/24/17 00:00 97.5 70 21 107/52 (70) 98 09/23/17 20:00 97.8 68 21 117/56 (76) 100 09/23/17 20:00 68 09/23/17 16:00 97.2 74 21 109/63 (78) 99 09/23/17 16:00 74 09/23/17 12:00 74 09/23/17 12:00 97.2 74 21 109/63 (78) 99 09/23/17 08:16 97 21 09/23/17 08:00 97.8 71 17 153/67 (95) 99 09/23/17 08:00 71 09/23/17 04:00 98.8 75 23 132/72 (92) 98 09/23/17 04:00 76 09/23/17 00:00 74 09/23/17 00:00 98.7 73 23 133/80 (97) 97 09/22/17 20:00 98.6 66 13 101/55 (70) 95 09/22/17 20:00 65 09/22/17 19:29 96 09/22/17 16:23 98.3 62 18 142/63 (89) 96 09/22/17 16:23 62 09/22/17 12:00 66 09/22/17 08:00 70 09/22/17 04:00 98.3 62 20 153/87 (109) 100 09/22/17 04:00 68 09/22/17 00:00 72 09/22/17 00:00 97.7 70 16 114/57 (76) 99 09/21/17 21:26 97 21 09/21/17 20:00 97.8 66 22 156/74 (101) 97 09/21/17 20:00 69 09/21/17 16:00 62 09/21/17 16:00 97.3 62 16 105/58 (74) 98 09/21/17 12:00 62 (Lauri Rudolph) Physical Examination GENERAL: Asleep but awakens to voice, then alert. Readily interacts. Affect essentially normal. No apparent distress. She quickly starts picking at her blankets. HEENT: Normocephalic. PERRLA 3 mm reactive. MMM & pink, tongue midline to protrusion. MUSCULOSKELETAL: No evident deformity or clubbing. NEUROLOGICAL: Asleep but awakens to voice, alert after that. Oriented to self & place. Thinks it is 1979 and October. When asked who the president is she started to ramble. Her speech is fairly clear. She followed simple commands with coaxing but is distracted and picking at her blanket. She moves all extremities spontaneously & to command. Motor strength appears strong to all major flexion & extension muscle groups to all extremities. (Lauri Rudolph) Lab, Micro, Other Results Laboratory Tests Test 09/22/17 05:54 09/22/17 06:20 09/23/17 05:39 White Blood Count 11.7 TH/MM3 12.9 TH/MM3 Red Blood Count 4.12 MIL/MM3 4.42 MIL/MM3 Hemoglobin 11.5 GM/DL 12.0 GM/DL Hematocrit 33.6 % 36.8 % Mean Corpuscular Volume 81.5 FL 83.2 FL Mean Corpuscular Hemoglobin 28.0 PG 27.2 PG Mean Corpuscular Hemoglobin Concent 34.3 % 32.7 % Red Cell Distribution Width 14.7 % 14.5 % Platelet Count 374 TH/MM3 353 TH/MM3 Mean Platelet Volume 7.6 FL 7.5 FL Blood Urea Nitrogen 10 MG/DL 7 MG/DL Creatinine 0.58 MG/DL 0.68 MG/DL Random Glucose 127 MG/DL 115 MG/DL Calcium Level 8.4 MG/DL 8.8 MG/DL Sodium Level 127 MEQ/L 124 MEQ/L Potassium Level 3.9 MEQ/L 4.0 MEQ/L Chloride Level 92 MEQ/L 90 MEQ/L Carbon Dioxide Level 24.7 MEQ/L 22.6 MEQ/L Anion Gap 10 MEQ/L 11 MEQ/L Estimat Glomerular Filtration Rate 101 ML/MIN 84 ML/MIN Urine Color YELLOW Urine Turbidity HAZY Urine pH 7.0 Urine Specific [place] 1.010 Urine Protein NEG mg/dL Urine Glucose (UA) NEG mg/dL Urine Ketones NEG mg/dL Urine Occult Blood NEG Urine Nitrite NEG Urine Bilirubin NEG Urine Urobilinogen 2.0 MG/DL Urine Leukocyte Esterase LARGE Urine RBC 10 /hpf Urine WBC 12 /hpf Urine Squamous Epithelial Cells 4 /hpf Urine Transitional Epithelial Cells <1 /hpf Urine Amorphous Sediment RARE Urine Bacteria MANY /hpf Urine Osmolality 458 MOSM/KG Urine Random Sodium 143 MEQ/L (Lauri Rudolph) Medical Decision Making Impression and Plan Impression: 1. Traumatic brain injury with left frontotemporoparietal acute subdural hematoma 2. Occipital skull fracture-close nondepressed 3. Hypertension 4. Diabetes 5. Anxiety disorder 6. GERD The patient continues to do good and is neurologically stable. Reviewed labs for this morning. Interval increase in leukocytosis. Interval resolution of anaemia. Sodium 124. CT brain essentially unchanged. Physical & Occupational Therapy recommend inpatient rehab. Plan: Critical care management per Supervisor Laboratory. Neuro checks. Stat CT brain for any decline in neuro status. Mechanical DVT prophylaxis. Hold pharmacologic DVT prophylaxis. Stress ulcer prophylaxis. Mobilise patient w/assistance. PT eval & tx. Continue present medication for hypertension with additional when necessary medications. Insulin sliding scale. Maintain SBP between 120 and 160 mm Hg. Discussed patient with Dr Landis the afternoon of who agreed to take the patient on his service. Order placed this morning changing the attending to Dr Landis. Patient is able to be discharged to rehab from Neurosurgery's perspective. (Lauri Rudolph) Attending Statement The exam, history, and the medical decision-making described in the above note were completed with the assistance of the mid-level provider. I reviewed and agree with the findings presented. I attest that I had a [id number] encounter with the patient on the same day, and personally performed and documented my assessment and findings in the medical record. On my examination of 09/24/2017, the patient remains awake and alert. She exhibits persistent moderate confusion, nose that she is in the hospital and the month. Continues to have poor judgment and insight Minimal dysarthria Follow simple commands Mild anxiety Moves all extremities well with moderate strength Extraocular movements intact Facial motor symmetric Stable neurologic exam following traumatic brain injury, nondepressed occipital skull fracture. Stable from neurosurgical standpoint She should have a follow-up CT scan in 2-3 weeks to make certain that there is not delayed subdural hematoma formation. Otherwise stable for transfer to floor and long term from neurosurgical standpoint. (Terrell Burgess MD) Lauri Rudolph Sep 24, 2017 09:43 Terrell Burgess MD Sep 24, 2017 12:12
[2017-09-24] MEDS: SODIUM CHLOR 0.9% 1000 ML INJ 1,000 ML IV SCH (14:48)
[2017-09-24] MEDS: QUEtiapine FUMARATE 100 MG TAB PO SCH (21:35)
[2017-09-25] VITALS (9 sets, daily range): BP systolic 107–136; BP diastolic 53–97; PULSE 62–68; RESP 11–24; TEMP 97.4–97.8; O2SAT 95–100
[2017-09-25] MEDS: hydrALAZINE HCL 50 MG TAB PO SCH ×3 (05:45→22:02)
[2017-09-25] MEDS: PROPRANOLOL HCL 20 MG TAB PO SCH ×3 (06:18→22:02)
[2017-09-25] MEDS: LEVOTHYROXINE SODIUM 100 MCG TAB PO SCH (06:18)
[2017-09-25 07:21] LABS: BICARBONATE 21.6 MEQ/L (21.0-32.0); CALCIUM 8.6 MG/DL (8.5-10.1); CREATININE 0.63 MG/DL (0.50-1.00)
--- NOTE | 2017-09-25 08:08 | HHI.PR ---
Neuropsych Behavior Behavior: Intact: Impulsive/Agitated Cognitive Cognitive: Severe: Cognitive, Attention/Concentration, Confused/Orientation, Insight/Awareness, Judgement/Problem-Solving, Memory Psychosocial Psychosocial: Moderate: Psychosocial, Family/Other Adjustment, Realistic Expectation, Unable to Asses: Self-Esteem/Confidence Progress Notes/Response to Tx Contents of Sessions: Adjustment, Level of Consciousness Time with Patient: 15 minutes Premorbid psychological status Premorbid Cognitive, Emotional and Behavioral Status: Unable to Assess. The patient was unable to report on her baseline abilities. Behavioral Reactions of Patient and Family/Support System: Unable to Assess. The patients family is experiencing ongoing issues of adjustment given the nature of the injury, and this aspect of recovery will require ongoing monitoring. Emotional/Behavioral Status of Patient and Family/Support System: Unable to Assess. Pertinent issues, if appropriate to this patients clinical care, are described in detail above. Maximizing acute care outcome It is recommended that the patient be monitored for emergent behavioral impulsivity as the medical condition evolves. I will follow her along with you to manage these aspects of her recovery. This patients neuropathological challenges may limit her rehabilitation potential going forward, and these challenges will require specialized therapeutic skills to maximize outcome. At this point in the recovery process, the patient does not have cognitive capacity as the patient is unable to understand a situation and its likely consequences, nor is she able to manipulate information rationally. Cognitive capacity will be assessed throughout the recovery process. Anticipated Problems Ongoing areas of concern will include behavioral impulsivity, lack of insight and judgment, which is expected to improve with time and treatment. Presently , the patient is not following commands. Given the severity of the patient's injuries it is my clinical opinion that this patient will be unable to return to any type of productive employment for at least one year, perhaps longer and likely never. This patient is not considered safe to discharge home with supervision. Treatment Plan This clinician will continue to follow with you throughout the course of this patients acute care treatment, and I will be available to meet with the patient s family/support system to facilitate their understanding and the ongoing care of their family member. The goals of neuropsychological intervention shall be both educational and supportive to the family/support system as is deemed clinically appropriate. [facility] Level: V:Confused-non agitated Disinhibition Score: 14.00 Aggression Score: 14.00 Lability Score: 14.00 Agitated Behavior Total Score: 14 Impression This 77 year old woman is s/p TBI 2T fall with agitation/restlessness. I will follow her to assist with agitation management. Diagnosis: (1) Major neurocognitive disorder as late effect of traumatic brain injury with behavioral disturbance Progress Note Narrative Ongoing follow-up of patient seen during daily neuropsychology rounds. This is day 12 post injury. The patient is improved from an agitation/restlessness perspective, with ABS of 14 (14,14,14), down from yesterday at 20. She remains on Seroquel 50/50/100 and propranolol 20 q8H. She is oriented to person and place only, otherwise remains confused. She is [place] at this point. I will continue to follow to assist with agitation/restlessness management. Cezar Ny PhD Sep 25, 2017 8:08 am
[2017-09-25] MEDS: glipiZIDE 5 MG TAB PO SCH ×2 (08:30→16:01)
[2017-09-25] MEDS: INSULIN NovoLIN REGULAR SUPPLEMENTAL SCALE SQ SCH ×4 (08:30→21:00)
[2017-09-25] MEDS: DOCUSATE SODIUM 100 MG CAP PO SCH ×2 (10:29→22:02)
[2017-09-25] MEDS: PANTOPRAZOLE SOD 20 MG DELAYED RELEASE TAB PO SCH (10:29)
[2017-09-25] MEDS: PARoxetine HCL 20 MG TAB PO SCH (10:29)
[2017-09-25] MEDS: QUEtiapine FUMARATE 25 MG TAB PO SCH ×2 (10:29→14:27)
[2017-09-25] MEDS: LISINOPRIL 20 MG TAB PO SCH (10:29)
--- NOTE | 2017-09-25 12:57 | HHI.CCPN ---
Subjective Remarks/Hospital Course Note for 09/25/16: 09/13: 77-year-old female. Date of admission 09/13/2017. Date of consultation 09/14/2017. Past medical history includes anxiety, hypertension, gastroesophageal reflux disease, diabetes and hypothyroidism. Previous history of fall 08/26. At that time, she was diagnosed with A right orbital floor fracture with some swelling around the right frontal bone and orbit was noted on maxillofacial CT scan. Today, she is cleaning out her garage. She was fell down. Checks her head. No loss of consciousness. She had no headache, nausea or emesis. No seizure activity reported. She denies any neck or low back pain. No nausea or vomiting. No dizziness or vertigo. No blurred vision or diplopia. CT brain revealed right subgaleal hematoma, left subdural and subarachnoid hemorrhage. Patient was admitted under the care of Dr. Burgess. On 09/13, patient become more agitated. We are asked to patient regards to agitation so she can repeat head CT. Patient is currently arousable but not following commands. Moving all 4 extremity spontaneously. 09/14, 09/15: Remains on Precedex drip. Gets agitated on titrating down Precedex. 09/16: remains on precedex drip, although now at 0.25 mcg/kg/hr. still confused and CAM +, but much calmer and now RASS 0. sodium dropped significantly to 127 today: have ordered serum osms, urine osms, urine sodium, and urine SG. repeat and trend sodiums. 09/17: Stopped Precedex. Patient is awake and alert today. Remains hyponatremic. Tolerating by mouth diet. 09/18: Episodes of agitation. Added Seroquel 100 mg daily today. Awake and alert however not very cooperative and refusing to take meds this morning. Hyponatremia persists. UA still not available. We'll start and is at 50 cc an hour and Samsca 15 mg by mouth 1 dose 09/19: Calmer with With Seroquel. Changed Seroquel dose to 50-50-100 mg. Sodium level up to 134 with 1 dose of samsca. Still gets agitated times and refuses to eat. 09/20: Calm today. Will defer to Neuropsych for atypical antipsychotic meds management. Transfer. 09/21: Persistent hypertension despite beta thee, ca channel thee and KIMBERLY- I. 09/24: BP control acceptable. 09/25: Hyponatremia remains problematic. No Short when corrected. Objective Vital Signs Date Time Temp Pulse Resp B/P (MAP) Pulse Ox O2 Delivery O2 Flow Rate FiO2 09/25/17 10:21 100 21 09/25/17 09:00 97.4 66 24 107/53 (71) Intake and Output 09/25/17 09/25/17 09/26/17 08:00 16:00 00:00 Intake Total 504 ml Balance 504 ml Result Diagram: 09/23/17 0539 09/25/17 0507 Imaging Last Impressions Head CT 09/13/17 1307 Signed Impressions: Service Date/Time: September 13:56 - CONCLUSION: 1. Acute subdural hematoma along the left frontal, parietal and temporal lobes measuring 5 mm in greatest width. Acute subarachnoid hemorrhage is also noted throughout the left frontal lobe and scattered petechial hemorrhages are also noted within left frontal lobe. There is 4 mm of subfalcine herniation to the right. 2. Acute fracture mild right occipital skull as well as subgaleal hematoma along the right occipital and posterior parietal skull. Mike Laguna MD Cervical Spine CT 09/13/17 1307 Signed Impressions: Service Date/Time: September 13:56 - CONCLUSION: 1. Acute fracture involving right occipital skull base. 2. No definite acute fracture or prevertebral soft tissue swelling within the cervical spine. 3. Mild spinal stenosis at C3-4 and C5-6. 4. Moderate bilateral foraminal narrowing at C5-6, moderate left neuroforaminal at C6-7 and moderate right neural foraminal narrowing at C3-4. 5. Diffuse cervical spondylosis from C2 through C7. 6. Degenerative changes and scoliosis of the cervical spine. Mike Laguna MD Objective Remarks GENERAL: 77-year-old female currently resting. SKIN: Warm and dry. EYES: Pupils equal and round. ENT: No nasal bleeding or discharge. NECK: Trachea midline. Airway widely patent. No obstruction. CARDIOVASCULAR: Regular rate and rhythm. No JVD. RESPIRATORY: No accessory muscle use. equal chest rise. Comfortable. GASTROINTESTINAL: Abdomen soft, non-tender, nondistended. No guarding. MUSCULOSKELETAL: Extremities without clubbing, cyanosis. Trace edema. No obvious deformities. Well perfused. NEUROLOGICAL: Lethargic. Confused. No obvious cranial nerve deficits. Motor grossly normal. Moving all 4 extremities spontaneously. Up in chair. A/P Assessment and Plan Neuro/Psych: Left frontotemporal parietal acute subdural hematoma Left frontal subarachnoid hemorrhage Right occipital nondisplaced skull fracture Right parietal occipital subcutaneous galeal hematoma C3 through C6 moderate canal stenosis and C5 to C7 moderate bilateral foraminal stenosis Depression/anxiety Chronic narcotic use Delirium/ encephalopathy Continue paroxetine 20 mg by mouth daily home medication for depression/anxiety Continue oxycodone/acetaminophen 5/325 one tablet every 6 hours. Pain Off Precedex since 09/17. Started Seroquel 100 mg by mouth daily on 09/28. Neuropsych consult for agitation/ delirium CT brain 09/13 - 4mm maximum thickness left frontotemporoparietal acute subdural hematoma with mild to moderate mass effect, approximate 4 mm midline shift which is mostly confined to the left frontal region. Small amount of subarachnoid hemorrhage and contusion in the left frontal lobe is noted. There is a right occipital nondisplaced skull fracture. Right parieto-occipital subgaleal hematoma. Cervical spine CT scan 09/13/2017 in mild to moderate diffuse degenerative changes with mild C3 4 and moderate C5 6 canal stenosis and moderate bilateral C5 6 and C6 7 foraminal stenosis. No evidence of significant cord compression. No acute fracture or subluxation. The occipital bone fracture is noted. Repeat neuro imaging per neurosurgery. Seroquel started. CV: Hypertension Currently on propranolol 20 mg by mouth daily lisinopril 20 mg by mouth daily and Norvasc 10 mg by mouth daily started on 09/17 As needed labetalol 10 mg every hour as needed systolic pressure is 160 Add hydralazine Resp: Nasal cannula to maintain saturations greater than equal to 92% Incentive spirometry while awake GI: Gastroesophageal reflux disease Currently on pantoprazole 20 mg by mouth daily. On omeprazole 20 mg by mouth daily at home for gastroesophageal reflux disease Docusate sodium 100 mg by mouth twice a day for bowel regimen : No indication for Watts catheter Endo: Diabetes mellitus Hypothyroidism Currently on glipizide 5 mg twice a day and Novulin R SSI with Accu-Cheks before meals/at bedtime to maintain euglycemia/low regimen Continue levothyroxine 100 mcg by mouth daily for hypothyroidism Renal: Creatinine currently within normal limits Monitor urine output Accurate I's and O's Heme: CBC within normal limits Does not meet transfusion thresholds at this time Coags normal ID: Monitor for infection FEN: Hyponatremia Replace electrolytes as clinically indicated unclear etiology of hyponatremia: ordered urine and serum osms, urine sodium, urine SG. recheck and trend sodium. NS at 50 cc/h started on 09/18. Samsca 15 mg by mouth times one dose ordered on . Follow serial sodium levels. Most likely SIADH MSK: PT evaluate and treat Access - Utilize peripheral IVs. Central line if indicated Prophylaxis - GI - pantoprazole - DVT - SCD/holding pharmacological prophylaxis until okay with neurosurgery Overall impression: Retaining free water, dilutional hyponatremia. Increase diuretics. Steven Landis MD Sep 25, 2017 12:57
[2017-09-25] MEDS: POTASSIUM CHLORIDE 25 MEQ EFFERVESCENT TAB PO SCH ×2 (13:48→22:02)
[2017-09-25] MEDS: FUROSEMIDE 40 MG/4 ML VIAL IV PUSH SCH ×2 (13:48→18:15)
[2017-09-25] MEDS ORDERED: SODIUM CHLORIDE 23.4% INJ 188 MEQ in SODIUM CHLOR 0.9% 1000 ML INJ 1,000 ML IV SCH (15:00)
[2017-09-25] MEDS: HALOPERIDOL LACTATE 5 MG/ML AMP IV PRN (16:54)
[2017-09-25] MEDS: QUEtiapine FUMARATE 100 MG TAB PO SCH (22:02)
[2017-09-25] MEDS: DEXTROSE 50% IN WATER 50 ML VIAL(D50) IV PUSH PRN (22:39)
[2017-09-26] VITALS: BP 120/56; PULSE 62; RESP 16; TEMP 97.3; O2SAT 97
[2017-09-26] MEDS: HALOPERIDOL LACTATE 5 MG/ML AMP IV PRN (00:20)
[2017-09-26 04:00] VITALS: BP 141/59; PULSE 60; RESP 14; TEMP 97.5; O2SAT 95
[2017-09-26] MEDS: PROPRANOLOL HCL 20 MG TAB PO SCH ×3 (06:04→22:49)
[2017-09-26] MEDS: hydrALAZINE HCL 50 MG TAB PO SCH ×3 (06:04→22:53)
[2017-09-26] MEDS: LEVOTHYROXINE SODIUM 100 MCG TAB PO SCH (06:04)
[2017-09-26] MEDS: glipiZIDE 5 MG TAB PO SCH ×2 (07:00→16:19)
[2017-09-26 08:00] VITALS: BP 114/63; PULSE 64; RESP 22; TEMP 98; O2SAT 96
[2017-09-26] MEDS: INSULIN NovoLIN REGULAR SUPPLEMENTAL SCALE SQ SCH ×4 (08:00→21:00)
[2017-09-26 08:42] LABS: BICARBONATE 22.9 MEQ/L (21.0-32.0); CALCIUM 8.6 MG/DL (8.5-10.1); CREATININE 0.66 MG/DL (0.50-1.00)
[2017-09-26] MEDS: POTASSIUM CHLORIDE 25 MEQ EFFERVESCENT TAB PO SCH ×2 (09:13→22:50)
[2017-09-26] MEDS: PARoxetine HCL 20 MG TAB PO SCH (09:13)
[2017-09-26] MEDS: FUROSEMIDE 40 MG/4 ML VIAL IV PUSH SCH ×2 (09:13→18:19)
[2017-09-26] MEDS: DOCUSATE SODIUM 100 MG CAP PO SCH ×2 (09:14→21:00)
[2017-09-26] MEDS: QUEtiapine FUMARATE 25 MG TAB PO SCH ×2 (09:14→13:44)
[2017-09-26] MEDS: PANTOPRAZOLE SOD 20 MG DELAYED RELEASE TAB PO SCH (09:14)
[2017-09-26] MEDS: LISINOPRIL 20 MG TAB PO SCH (09:14)
--- NOTE | 2017-09-26 10:41 | HHI.CCPN ---
Subjective Remarks/Hospital Course Note for 09/25/16: 09/13: 77-year-old female. Date of admission 09/13/2017. Date of consultation 09/14/2017. Past medical history includes anxiety, hypertension, gastroesophageal reflux disease, diabetes and hypothyroidism. Previous history of fall 08/26. At that time, she was diagnosed with A right orbital floor fracture with some swelling around the right frontal bone and orbit was noted on maxillofacial CT scan. Today, she is cleaning out her garage. She was fell down. Checks her head. No loss of consciousness. She had no headache, nausea or emesis. No seizure activity reported. She denies any neck or low back pain. No nausea or vomiting. No dizziness or vertigo. No blurred vision or diplopia. CT brain revealed right subgaleal hematoma, left subdural and subarachnoid hemorrhage. Patient was admitted under the care of Dr. Burgess. On 09/13, patient become more agitated. We are asked to patient regards to agitation so she can repeat head CT. Patient is currently arousable but not following commands. Moving all 4 extremity spontaneously. 09/14, 09/15: Remains on Precedex drip. Gets agitated on titrating down Precedex. 09/16: remains on precedex drip, although now at 0.25 mcg/kg/hr. still confused and CAM +, but much calmer and now RASS 0. sodium dropped significantly to 127 today: have ordered serum osms, urine osms, urine sodium, and urine SG. repeat and trend sodiums. 09/17: Stopped Precedex. Patient is awake and alert today. Remains hyponatremic. Tolerating by mouth diet. 09/18: Episodes of agitation. Added Seroquel 100 mg daily today. Awake and alert however not very cooperative and refusing to take meds this morning. Hyponatremia persists. UA still not available. We'll start and is at 50 cc an hour and Samsca 15 mg by mouth 1 dose 09/19: Calmer with With Seroquel. Changed Seroquel dose to 50-50-100 mg. Sodium level up to 134 with 1 dose of samsca. Still gets agitated times and refuses to eat. 09/20: Calm today. Will defer to Neuropsych for atypical antipsychotic meds management. Transfer. 09/21: Persistent hypertension despite beta thee, ca channel thee and KIMBERLY- I. 09/24: BP control acceptable. 09/25: Hyponatremia remains problematic. No Short when corrected. 09/26: sodium remains low despite conservative measures and 2% saline. will d/c hypertonic saline and continue fluid restriction. add demeclocycline as we have failed other management. continue serial sodiums. patient remains somnolent and unable to work with PT for significant amounts of time. will need SNF referral- unable to participate significantly with inpatient rehab. Objective Vital Signs Date Time Temp Pulse Resp B/P (MAP) Pulse Ox O2 Delivery O2 Flow Rate FiO2 09/26/17 04:00 97.5 60 14 141/59 (86) 95 09/25/17 10:21 21 Result Diagram: 09/23/17 0539 09/26/17 0735 Imaging Last Impressions Head CT 09/13/17 1307 Signed Impressions: Service Date/Time: September 13:56 - CONCLUSION: 1. Acute subdural hematoma along the left frontal, parietal and temporal lobes measuring 5 mm in greatest width. Acute subarachnoid hemorrhage is also noted throughout the left frontal lobe and scattered petechial hemorrhages are also noted within left frontal lobe. There is 4 mm of subfalcine herniation to the right. 2. Acute fracture mild right occipital skull as well as subgaleal hematoma along the right occipital and posterior parietal skull. Mike Laguna MD Cervical Spine CT 09/13/17 1307 Signed Impressions: Service Date/Time: September 13:56 - CONCLUSION: 1. Acute fracture involving right occipital skull base. 2. No definite acute fracture or prevertebral soft tissue swelling within the cervical spine. 3. Mild spinal stenosis at C3-4 and C5-6. 4. Moderate bilateral foraminal narrowing at C5-6, moderate left neuroforaminal at C6-7 and moderate right neural foraminal narrowing at C3-4. 5. Diffuse cervical spondylosis from C2 through C7. 6. Degenerative changes and scoliosis of the cervical spine. Mike Laguna MD Objective Remarks GENERAL: 77-year-old female currently resting. SKIN: Warm and dry. EYES: Pupils equal and round. ENT: No nasal bleeding or discharge. NECK: Trachea midline. Airway widely patent. No obstruction. CARDIOVASCULAR: Regular rate and rhythm. No JVD. RESPIRATORY: No accessory muscle use. equal chest rise. Comfortable. GASTROINTESTINAL: Abdomen soft, non-tender, nondistended. No guarding. MUSCULOSKELETAL: Extremities without clubbing, cyanosis. Trace edema. No obvious deformities. Well perfused. NEUROLOGICAL: Lethargic. Confused. No obvious cranial nerve deficits. Motor grossly normal. Moving all 4 extremities spontaneously. A/P Assessment and Plan Assessment: 77yF admitted with subdural hematoma but now with agitated delirium , encephalopathy, persistent hyponatremia secondary to SIADH which is difficult to control. add demeclocycline. will start looking for SNF as patient is too encephalopathic for successful rehab placement. stable for transfer to floor. Neuro/Psych: Left frontotemporal parietal acute subdural hematoma Left frontal subarachnoid hemorrhage Right occipital nondisplaced skull fracture Right parietal occipital subcutaneous galeal hematoma C3 through C6 moderate canal stenosis and C5 to C7 moderate bilateral foraminal stenosis Depression/anxiety Chronic narcotic use Acute Delirium/ encephalopathy Continue paroxetine 20 mg by mouth daily home medication for depression/anxiety Continue oxycodone/acetaminophen 5/325 one tablet every 6 hours. Pain Off Precedex since 09/17. Seroquel 100 mg by mouth daily on 09/28. Neuropsych consult for agitation/ delirium CT brain 09/13 - 4mm maximum thickness left frontotemporoparietal acute subdural hematoma with mild to moderate mass effect, approximate 4 mm midline shift which is mostly confined to the left frontal region. Small amount of subarachnoid hemorrhage and contusion in the left frontal lobe is noted. There is a right occipital nondisplaced skull fracture. Right parieto-occipital subgaleal hematoma. Cervical spine CT scan 09/13/2017 in mild to moderate diffuse degenerative changes with mild C3 4 and moderate C5 6 canal stenosis and moderate bilateral C5 6 and C6 7 foraminal stenosis. No evidence of significant cord compression. No acute fracture or subluxation. The occipital bone fracture is noted. Repeat neuro imaging per neurosurgery. CV: Hypertension Currently on propranolol 20 mg by mouth daily lisinopril 20 mg by mouth daily and Norvasc 10 mg by mouth daily started on 09/17 As needed labetalol 10 mg every hour as needed systolic pressure is 160 hydralazine Resp: Nasal cannula to maintain saturations greater than equal to 92% Incentive spirometry while awake GI: Gastroesophageal reflux disease Currently on pantoprazole 20 mg by mouth daily. On omeprazole 20 mg by mouth daily at home for gastroesophageal reflux disease Docusate sodium 100 mg by mouth twice a day for bowel regimen : No indication for Watts catheter Endo: Diabetes mellitus Hypothyroidism Currently on glipizide 5 mg twice a day and Novulin R SSI with Accu-Cheks before meals/at bedtime to maintain euglycemia/low regimen Continue levothyroxine 100 mcg by mouth daily for hypothyroidism Renal: Creatinine currently within normal limits Monitor urine output Accurate I's and O's Heme: CBC within normal limits Does not meet transfusion thresholds at this time Coags normal ID: Monitor for infection FEN: Hyponatremia SIADH- complex and difficult to control. Replace electrolytes as clinically indicated stop 2% saline start demeclocycline trend sodiums continue 1500mL fluid restriction MSK: PT evaluate and treat Access - Utilize peripheral IVs. Prophylaxis - GI - pantoprazole - DVT - SCD/SQH Chirag Swenson MD Sep 26, 2017 10:41
[2017-09-26 12:00] VITALS: BP 110/57; PULSE 62; RESP 13; TEMP 98.2; O2SAT 96
[2017-09-26] MEDS: DEMECLOCYCLINE HCL 150 MG TAB PO SCH ×2 (13:39→22:50)
[2017-09-26 16:00] VITALS: BP 100/59; PULSE 71; RESP 18; TEMP 98.2; O2SAT 96
[2017-09-26 20:00] VITALS: BP 102/59; PULSE 70; PULSE 92; RESP 22; TEMP 98.3; O2SAT 99
[2017-09-26] MEDS: QUEtiapine FUMARATE 100 MG TAB PO SCH (22:49)
[2017-09-26] MEDS: HEPARIN SODIUM - SQ 10,000 UNITS/ML VIAL SQ SCH (22:50)
[2017-09-26] MEDS: SODIUM CHLORIDE 1 GRAM TAB PO SCH (22:53)
[2017-09-26 22:59] LABS: CORTISOL 22.3 MCG/DL
[2017-09-27] VITALS (8 sets, daily range): BP systolic 91–147; BP diastolic 50–74; PULSE 61–85; RESP 18–20; TEMP 97.6–98.6; O2SAT 98–100
[2017-09-27 04:18] LABS: SODIUM,RANDOM URINE 105 MEQ/L
[2017-09-27 05:01] LABS: OSMOLALITY,URINE 302 MOSM/KG (300-1300)
[2017-09-27] MEDS: hydrALAZINE HCL 50 MG TAB PO SCH ×3 (05:55→22:00)
[2017-09-27] MEDS: LEVOTHYROXINE SODIUM 100 MCG TAB PO SCH (05:55)
[2017-09-27] MEDS: SODIUM CHLORIDE 1 GRAM TAB PO SCH ×3 (05:55→21:59)
[2017-09-27] MEDS: PROPRANOLOL HCL 20 MG TAB PO SCH ×3 (05:55→22:00)
[2017-09-27 06:24] LABS: BICARBONATE 26.5 MEQ/L (21.0-32.0); CALCIUM 9.4 MG/DL (8.5-10.1); CREATININE 0.89 MG/DL (0.50-1.00)
[2017-09-27] MEDS: glipiZIDE 5 MG TAB PO SCH ×2 (06:40→15:37)
[2017-09-27] MEDS: INSULIN NovoLIN REGULAR SUPPLEMENTAL SCALE SQ SCH ×4 (08:00→21:00)
[2017-09-27] MEDS: PARoxetine HCL 20 MG TAB PO SCH (08:18)
[2017-09-27] MEDS: POTASSIUM CHLORIDE 25 MEQ EFFERVESCENT TAB PO SCH (08:18)
[2017-09-27] MEDS: LISINOPRIL 20 MG TAB PO SCH (08:18)
[2017-09-27] MEDS: QUEtiapine FUMARATE 25 MG TAB PO SCH ×2 (08:18→15:37)
[2017-09-27] MEDS: DEMECLOCYCLINE HCL 150 MG TAB PO SCH ×2 (08:18→21:58)
[2017-09-27] MEDS: DOCUSATE SODIUM 100 MG CAP PO SCH (08:18)
[2017-09-27] MEDS: FUROSEMIDE 40 MG/4 ML VIAL IV PUSH SCH ×2 (08:19→17:15)
[2017-09-27] MEDS: PANTOPRAZOLE SOD 20 MG DELAYED RELEASE TAB PO SCH (08:19)
[2017-09-27] MEDS: HEPARIN SODIUM - SQ 10,000 UNITS/ML VIAL SQ SCH ×2 (08:19→21:58)
--- NOTE | 2017-09-27 08:19 | HHI.PR ---
Neuropsych Behavior Behavior: Mild: Impulsive/Agitated Cognitive Cognitive: Severe: Cognitive, Attention/Concentration, Confused/Orientation, Insight/Awareness, Judgement/Problem-Solving, Memory Progress Notes/Response to Tx Contents of Sessions: Adjustment, Level of Consciousness Time with Patient: 15 minutes Premorbid psychological status Premorbid Cognitive, Emotional and Behavioral Status: Unable to Assess. The patient was unable to report on her baseline abilities. Behavioral Reactions of Patient and Family/Support System: Unable to Assess. The patients family is experiencing ongoing issues of adjustment given the nature of the injury, and this aspect of recovery will require ongoing monitoring. Emotional/Behavioral Status of Patient and Family/Support System: Unable to Assess. Pertinent issues, if appropriate to this patients clinical care, are described in detail above. Maximizing acute care outcome It is recommended that the patient be monitored for emergent behavioral impulsivity as the medical condition evolves. I will follow her along with you to manage these aspects of her recovery. This patients neuropathological challenges may limit her rehabilitation potential going forward, and these challenges will require specialized therapeutic skills to maximize outcome. At this point in the recovery process, the patient does not have cognitive capacity as the patient is unable to understand a situation and its likely consequences, nor is she able to manipulate information rationally. Cognitive capacity will be assessed throughout the recovery process. Anticipated Problems Ongoing areas of concern will include behavioral impulsivity, lack of insight and judgment, which is expected to improve with time and treatment. Presently , the patient is not following commands. Given the severity of the patient's injuries it is my clinical opinion that this patient will be unable to return to any type of productive employment for at least one year, perhaps longer and likely never. This patient is not considered safe to discharge home with supervision. Treatment Plan This clinician will continue to follow with you throughout the course of this patients acute care treatment, and I will be available to meet with the patient s family/support system to facilitate their understanding and the ongoing care of their family member. The goals of neuropsychological intervention shall be both educational and supportive to the family/support system as is deemed clinically appropriate. [place] Level: IV:Confused/Agitated-maximal assist Disinhibition Score: 24.50 Aggression Score: 14.00 Lability Score: 14.00 Agitated Behavior Total Score: 20 Impression This 77 year old woman is s/p TBI 2T fall with agitation/restlessness. I will follow her to assist with agitation management. Diagnosis: (1) Major neurocognitive disorder as late effect of traumatic brain injury with behavioral disturbance Progress Note Narrative Ongoing follow-up of patient seen during daily trauma rounds. This is day 14 post injury. The patient is mildly agitated with ABS of 20 (24.5, 14, 14) with the main city route driver being disinhibition. She remains on Seroquel 50/50/100 and last received Haldol yesterday at 0020. Dr. Swenson returns to manage patient's care from a critical care standpoint, and noted that the patient seems lethargic , which could be due to when she was seen in light of when she was medicated. She may benefit from a trial of Valproic Acid, unless medically contraindicated. She does appear to be [place] IV. I will continue to follow. Cezar Ny PhD Sep 27, 2017 8:19 am
[2017-09-27] MEDS ORDERED: GLYCERIN ADULT 2 GM SUPP RECTAL ONE (09:00)
[2017-09-27] MEDS: POLYETHYLENE GLYCOL 17 GM PKG PO SCH (09:00)
--- NOTE | 2017-09-27 09:07 | HHI.CCPN ---
Subjective Remarks/Hospital Course 09/13: 77-year-old female. Date of admission 09/13/2017. Date of consultation 09/14/2017. Past medical history includes anxiety, hypertension, gastroesophageal reflux disease, diabetes and hypothyroidism. Previous history of fall 08/26. At that time, she was diagnosed with A right orbital floor fracture with some swelling around the right frontal bone and orbit was noted on maxillofacial CT scan. Today, she is cleaning out her garage. She was fell down. Checks her head. No loss of consciousness. She had no headache, nausea or emesis. No seizure activity reported. She denies any neck or low back pain. No nausea or vomiting. No dizziness or vertigo. No blurred vision or diplopia. CT brain revealed right subgaleal hematoma, left subdural and subarachnoid hemorrhage. Patient was admitted under the care of Dr. Burgess. On 09/13, patient become more agitated. We are asked to patient regards to agitation so she can repeat head CT. Patient is currently arousable but not following commands. Moving all 4 extremity spontaneously. 09/14, 09/15: Remains on Precedex drip. Gets agitated on titrating down Precedex. 09/16: remains on precedex drip, although now at 0.25 mcg/kg/hr. still confused and CAM +, but much calmer and now RASS 0. sodium dropped significantly to 127 today: have ordered serum osms, urine osms, urine sodium, and urine SG. repeat and trend sodiums. 09/17: Stopped Precedex. Patient is awake and alert today. Remains hyponatremic. Tolerating by mouth diet. 09/18: Episodes of agitation. Added Seroquel 100 mg daily today. Awake and alert however not very cooperative and refusing to take meds this morning. Hyponatremia persists. UA still not available. We'll start and is at 50 cc an hour and Samsca 15 mg by mouth 1 dose 09/19: Calmer with With Seroquel. Changed Seroquel dose to 50-50-100 mg. Sodium level up to 134 with 1 dose of samsca. Still gets agitated times and refuses to eat. 09/20: Calm today. Will defer to Neuropsych for atypical antipsychotic meds management. Transfer. 09/21: Persistent hypertension despite beta thee, ca channel thee and KIMBERLY- I. 09/24: BP control acceptable. 09/25: Hyponatremia remains problematic. No Short when corrected. 09/26: sodium remains low despite conservative measures and 2% saline. will d/c hypertonic saline and continue fluid restriction. add demeclocycline as we have failed other management. continue serial sodiums. patient remains somnolent and unable to work with PT for significant amounts of time. will need SNF referral- unable to participate significantly with inpatient rehab. Subjective 09/27: Afebrile. Remains agitated. Sodium currently 128 on scheduled sodium chloride tablets 1 g every 8 hours. Started on demeclocycline 150 mg twice a day. No bowel movement since 09/22 Objective Vital Signs Date Time Temp Pulse Resp B/P (MAP) Pulse Ox O2 Delivery O2 Flow Rate FiO2 09/27/17 08:25 83 09/27/17 08:25 98.1 18 107/74 (85) 09/27/17 05:12 98 09/25/17 10:21 21 Intake and Output 09/27/17 09/27/17 09/28/17 08:00 16:00 00:00 Intake Total 240 ml Output Total 300 ml Balance -60 ml Result Diagram: 09/23/17 0539 09/27/17 0510 Imaging Last Impressions Head CT 09/14/17 0600 Signed Impressions: Service Date/Time: Thursday, September 14, 2017 04:26 - CONCLUSION: No significant interval change. Left sided subdural hematoma and left frontal parenchymal hemorrhage again seen. Geovany Woods MD Cervical Spine CT 09/13/17 1307 Signed Impressions: Service Date/Time: September 13:56 - CONCLUSION: 1. Acute fracture involving right occipital skull base. 2. No definite acute fracture or prevertebral soft tissue swelling within the cervical spine. 3. Mild spinal stenosis at C3-4 and C5-6. 4. Moderate bilateral foraminal narrowing at C5-6, moderate left neuroforaminal at C6-7 and moderate right neural foraminal narrowing at C3-4. 5. Diffuse cervical spondylosis from C2 through C7. 6. Degenerative changes and scoliosis of the cervical spine. Mike Laguna MD Objective Remarks GENERAL: 77-year-old female currently resting in bed in no acute distress currently in soft restraints SKIN: Warm and dry. EYES: Pupils equal and round about 2 mm bilaterally and sluggish. ENT: No nasal bleeding or discharge. NECK: Trachea midline. Airway widely patent. No obstruction. CARDIOVASCULAR: Regular rate and rhythm. S1, S2 no S4. Without murmur No JVD. RESPIRATORY: No accessory muscle use. equal chest rise. Comfortable. GASTROINTESTINAL: Abdomen soft, non-tender, nondistended. No guarding. MUSCULOSKELETAL: Extremities without clubbing, cyanosis. Trace edema. No obvious deformities. Well perfused. NEUROLOGICAL: Clinically Confused. No obvious cranial nerve deficits. Motor grossly normal. Moving all 4 extremities spontaneously. A/P Assessment and Plan Neuro/Psych: Left frontotemporal parietal acute subdural hematoma Left frontal subarachnoid hemorrhage Right occipital nondisplaced skull fracture Right parietal occipital subcutaneous galeal hematoma C3 through C6 moderate canal stenosis and C5 to C7 moderate bilateral foraminal stenosis Depression/anxiety Chronic narcotic use Acute Delirium/ encephalopathy Due to underlying hyponatremia will hold paroxetine 20 mg by mouth daily home medication for depression/anxiety Continue oxycodone/acetaminophen 5/325 one tablet every 6 hours as needed for pain. Consider holding this could be because of SIADH Off dexmedetomidine since 09/17. Quetiapine 50 mg morning, 50 mg of 1400 and 100 mg at night for neuropsychiatric recommendation CT brain 09/13 - 4mm maximum thickness left frontotemporoparietal acute subdural hematoma with mild to moderate mass effect, approximate 4 mm midline shift which is mostly confined to the left frontal region. Small amount of subarachnoid hemorrhage and contusion in the left frontal lobe is noted. There is a right occipital nondisplaced skull fracture. Right parieto-occipital subgaleal hematoma. Cervical spine CT scan 09/13/2017 in mild to moderate diffuse degenerative changes with mild C3 4 and moderate C5 6 canal stenosis and moderate bilateral C5 6 and C6 7 foraminal stenosis. No evidence of significant cord compression. No acute fracture or subluxation. The occipital bone fracture is noted. Repeat neuro imaging per neurosurgery. CV: Hypertension Currently on propranolol 20 mg by mouth 3 times daily on twice daily at home During this hospitalization added hydralazine 50 mg every 8 hours and amlodipine 10 mg daily Resp: Nasal cannula to maintain saturations greater than equal to 92% Incentive spirometry while awake GI: Gastroesophageal reflux disease Constipation Currently on pantoprazole 20 mg by mouth daily. On omeprazole 20 mg by mouth daily at home for gastroesophageal reflux disease Docusate sodium/senna 1 tablet by mouth twice a day for bowel regimen. Added polyethylene glycol 17 g daily, lactulose 30 cc daily and glycerin suppository 1 1 Check KUB. No bowel movement since 09/22 : No indication for Watts catheter Endo: Diabetes mellitus Hypothyroidism Currently on glipizide 5 mg twice a day and Novulin R SSI with Accu-Cheks before meals/at bedtime to maintain euglycemia/low regimen Continue levothyroxine 100 mcg by mouth daily for hypothyroidism. TSH 1.61 on admission Renal: Creatinine currently within normal limits Monitor urine output Accurate I's and O's Heme: Leukocytosis Follow CBC as clinically indicated Does not meet transfusion thresholds at this time Coags normal ID: Monitor for infection FEN: Hypoosmolar euvolemic Hyponatremia Likely SIADH- complex and difficult to control. Replace electrolytes as clinically indicated 09/26 initiated on medical second 100 mg by mouth twice a day On scheduled sodium chloride tablets 1 g 3 times a day Set 5.4. Urine sodium 100. Urine osm 105. Serum osm 263. TSH 1.61. Cortisol 22.3. Triglycerides pending continue 1500mL fluid restriction Creatinine furosemide 40 mill grams IV twice a day. With potassium supplementation 20 mEq twice a day As above. Holding SSRI and haloperidol is using cause SIADH. Consider holding opiates as well. Continue to monitor sodiums MSK: PT evaluate and treat Access - Utilize peripheral IVs. Prophylaxis - GI - pantoprazole - DVT - SCD/SQH Level II follow-up Johnny Copeland MD Sep 27, 2017 09:07
[2017-09-27] MEDS ORDERED: RESP: ALBUTEROL 2.5 MG/3 ML NEB (PRN) NEB (09:15)
[2017-09-27] MEDS: DOCUSATE SODIUM 50 MG/SENNA 8.6 MG TAB PO SCH ×2 (10:40→21:58)
[2017-09-27] MEDS: LACTULOSE SYRUP 20 GM/30 ML CUP PO SCH (10:40)
--- NOTE | 2017-09-27 11:29 | RADRPT ---
EXAM DATE/TIME: 09/27/2017 10:25 [facility] COMPARISON: No previous studies available for comparison. INDICATIONS : Abdomen pain, constipation MEDICAL HISTORY : None. SURGICAL HISTORY : None. ENCOUNTER: Initial ACUITY: 2 weeks PAIN SCORE: 3/10 LOCATION: Bilateral Abdomen FINDINGS: Supine view of the abdomen was performed. The abdominal bowel gas pattern is normal. No abnormal ma sses, calcifications, or organomegaly is seen. The osseous structures are unremarkable. Degenerative disc space narrowing in the mid lumbar spine. CONCLUSION: Normal examination. Cristian Elam MD on September 27, 2017 at 11:26 Board Certified Radiologist. This report was verified electronically.
[2017-09-27] MEDS: RESP: ALBUTEROL 2.5 MG/IPRATROPIUM 0.5 MG NEB (SCH) NEB ×2 (12:28→20:13)
[2017-09-27] MEDS: QUEtiapine FUMARATE 100 MG TAB PO SCH (21:58)
[2017-09-27] MEDS: POTASSIUM CHLORIDE 20 MEQ CONTROLLED RELEASE TAB PO SCH (21:58)
[2017-09-28 00:30] VITALS: BP 104/61; PULSE 75; RESP 20; TEMP 97.9; O2SAT 97
[2017-09-28 04:05] VITALS: BP 116/55; PULSE 73; RESP 20; TEMP 97.4; O2SAT 94
[2017-09-28] MEDS: LEVOTHYROXINE SODIUM 100 MCG TAB PO SCH (05:02)
[2017-09-28] MEDS: PROPRANOLOL HCL 20 MG TAB PO SCH (05:02)
[2017-09-28] MEDS: hydrALAZINE HCL 50 MG TAB PO SCH (05:02)
[2017-09-28] MEDS: SODIUM CHLORIDE 1 GRAM TAB PO SCH ×2 (05:03→12:00)
[2017-09-28 05:05] VITALS: BP 135/61; PULSE 79
[2017-09-28 07:12] LABS: HEMATOCRIT 39.8 % (35.0-46.0); HEMOGLOBIN 13.2 GM/DL (11.6-15.3); MEAN CELL VOLUME 82.5 FL (80.0-100.0); MEAN CORPUSCULAR HEMOGLOBIN 27.3 PG (27.0-34.0); MEAN CORPUSCULAR HGB CONC 33.1 % (32.0-36.0); MEAN PLATELET VOLUME 8.3 FL (7.0-11.0); PLATELET COUNT 357 TH/MM3 (150-450); RED BLOOD COUNT 4.83 MIL/MM3 (4.00-5.30); RED CELL DISTRIBUTION WIDTH 14.9 % (11.6-17.2); WHITE BLOOD COUNT 12.5 TH/MM3 (4.0-11.0)
[2017-09-28] MEDS: glipiZIDE 5 MG TAB PO SCH (07:26)
[2017-09-28 07:30] LABS: BICARBONATE 24.2 MEQ/L (21.0-32.0); CREATININE 1.51 MG/DL (0.50-1.00); MAGNESIUM 1.9 MG/DL (1.5-2.5); PHOSPHORUS 4.3 MG/DL (2.5-4.9)
[2017-09-28] MEDS: INSULIN NovoLIN REGULAR SUPPLEMENTAL SCALE SQ SCH ×2 (07:57→11:55)
[2017-09-28 08:00] VITALS: BP 109/57; PULSE 66; RESP 17; TEMP 97.5; O2SAT 96
[2017-09-28] MEDS: RESP: ALBUTEROL 2.5 MG/IPRATROPIUM 0.5 MG NEB (SCH) NEB (08:28)
[2017-09-28 08:29] VITALS: O2SAT 96
[2017-09-28] MEDS: LACTULOSE SYRUP 20 GM/30 ML CUP PO SCH (08:37)
[2017-09-28] MEDS: POTASSIUM CHLORIDE 20 MEQ CONTROLLED RELEASE TAB PO SCH (08:38)
[2017-09-28] MEDS: POLYETHYLENE GLYCOL 17 GM PKG PO SCH (08:38)
[2017-09-28] MEDS: LISINOPRIL 20 MG TAB PO SCH (08:38)
[2017-09-28] MEDS: DOCUSATE SODIUM 50 MG/SENNA 8.6 MG TAB PO SCH (08:38)
[2017-09-28] MEDS: QUEtiapine FUMARATE 25 MG TAB PO SCH (08:38)
[2017-09-28] MEDS: PANTOPRAZOLE SOD 20 MG DELAYED RELEASE TAB PO SCH (08:38)
[2017-09-28] MEDS: DEMECLOCYCLINE HCL 150 MG TAB PO SCH (08:38)
[2017-09-28] MEDS ORDERED: SERO25TA PO ×2 (08:39)
[2017-09-28] MEDS: HEPARIN SODIUM - SQ 10,000 UNITS/ML VIAL SQ SCH (08:39)
[2017-09-28] MEDS ORDERED: PROP20TA3 PO (08:39)
[2017-09-28] MEDS ORDERED: HYDR-3800 PO (08:39)
[2017-09-28] MEDS ORDERED: HALO5P IV (08:39)
[2017-09-28] MEDS ORDERED: DEME150T2 PO (08:39)
[2017-09-28] MEDS ORDERED: QUET1TAB8 PO (08:39)
[2017-09-28] MEDS ORDERED: AMLO10 PO (08:39)
[2017-09-28] MEDS ORDERED: LISI-515 PO (08:39)
[2017-09-28] MEDS ORDERED: POTA20TA5 PO (08:39)
[2017-09-28] MEDS ORDERED: Lactulose Liq PO (08:39)
--- NOTE | 2017-09-28 08:43 | HHI.DS ---
Discharge Summary Admission Date Sep 13, 2017 at 14:45 Discharge Date: Sep 28, 2017 Admitting Diagnosis SUBDURAL HEMATOMA, SKULL FX Brief History 77-year-old female. Date of admission 09/13/2017. Date of consultation 09/14/2017. Past medical history includes anxiety, hypertension, gastroesophageal reflux disease, diabetes and hypothyroidism. Previous history of fall 08/26. At that time, she was diagnosed with A right orbital floor fracture with some swelling around the right frontal bone and orbit was noted on maxillofacial CT scan. Today, she is cleaning out her garage. She was fell down. Checks her head. No loss of consciousness. She had no headache, nausea or emesis. No seizure activity reported. She denies any neck or low back pain. No nausea or vomiting. No dizziness or vertigo. No blurred vision or diplopia. CT brain revealed right subgaleal hematoma, left subdural and subarachnoid hemorrhage. Patient was admitted under the care of Dr. Burgess. CBC/BMP: 09/28/17 0446 09/28/17 0446 Significant Findings Laboratory Tests Test 09/26/17 07:35 09/26/17 14:37 09/26/17 22:04 09/27/17 04:00 Sodium Level 127 MEQ/L (136-145) 124 MEQ/L (136-145) 125 MEQ/L (136-145) Chloride Level 93 MEQ/L (98-107) Estimat Glomerular Filtration Rate 87 ML/MIN (>89) Serum Osmolality 263 MOSM/KG (275-295) Test 09/27/17 05:10 09/27/17 11:00 09/28/17 04:46 Random Glucose 138 MG/DL (74-106) Sodium Level 128 MEQ/L (136-145) 128 MEQ/L (136-145) Chloride Level 90 MEQ/L (98-107) 91 MEQ/L (98-107) Estimat Glomerular Filtration Rate 62 ML/MIN (>89) 33 ML/MIN (>89) White Blood Count 12.5 TH/MM3 (4.0-11.0) Blood Urea Nitrogen 26 MG/DL (7-18) Creatinine 1.51 MG/DL (0.50-1.00) PE at Discharge gen: awake, alert, in NAD. heent: nc. at. mmm. perrl. neck: no jvd. trachea midline. chest: equal chest rise. unlabored. room air. cv: normal rate, ergular rhythm. sinus by tele. abd: soft, nontender, nondistended. no guarding. extr: no peripheral edema. neuro: RASS 0. CAM+. slightly confused. follows commands. Hospital Course 77-year-old female. Date of admission 09/13/2017. Date of consultation 09/14/2017. Past medical history includes anxiety, hypertension, gastroesophageal reflux disease, diabetes and hypothyroidism. Previous history of fall 08/26. At that time, she was diagnosed with A right orbital floor fracture with some swelling around the right frontal bone and orbit was noted on maxillofacial CT scan. Today, she is cleaning out her garage. She was fell down. Checks her head. No loss of consciousness. She had no headache, nausea or emesis. No seizure activity reported. She denies any neck or low back pain. No nausea or vomiting. No dizziness or vertigo. No blurred vision or diplopia. CT brain revealed right subgaleal hematoma, left subdural and subarachnoid hemorrhage. Patient was admitted under the care of Dr. Burgess. On 09/13, patient become more agitated. We are asked to patient regards to agitation so she can repeat head CT. Patient is currently arousable but not following commands. Moving all 4 extremity spontaneously. 09/14, 09/15: Remains on Precedex drip. Gets agitated on titrating down Precedex. 09/16: remains on precedex drip, although now at 0.25 mcg/kg/hr. still confused and CAM +, but much calmer and now RASS 0. sodium dropped significantly to 127 today: have ordered serum osms, urine osms, urine sodium, and urine SG. repeat and trend sodiums. 09/17: Stopped Precedex. Patient is awake and alert today. Remains hyponatremic. Tolerating by mouth diet. 09/18: Episodes of agitation. Added Seroquel 100 mg daily today. Awake and alert however not very cooperative and refusing to take meds this morning. Hyponatremia persists. UA still not available. We'll start and is at 50 cc an hour and Samsca 15 mg by mouth 1 dose 09/19: Calmer with With Seroquel. Changed Seroquel dose to 50-50-100 mg. Sodium level up to 134 with 1 dose of samsca. Still gets agitated times and refuses to eat. 09/20: Calm today. Will defer to Neuropsych for atypical antipsychotic meds management. Transfer. 09/21: Persistent hypertension despite beta thee, ca channel thee and KIMBERLY- I. 09/24: BP control acceptable. 09/25: Hyponatremia remains problematic. No Short when corrected. 09/26: sodium remains low despite conservative measures and 2% saline. will d/c hypertonic saline and continue fluid restriction. add demeclocycline as we have failed other management. continue serial sodiums. patient remains somnolent and unable to work with PT for significant amounts of time. will need SNF referral- unable to participate significantly with inpatient rehab. 09/27: Afebrile. Remains agitated. Sodium currently 128 on scheduled sodium chloride tablets 1 g every 8 hours. Started on demeclocycline 150 mg twice a day. No bowel movement since 09/22 09/28: today neuro stable. +BM yesterday. sodium stable. ready for transfer to inpatient rehab. will need recheck renal function in a few days. Pt Condition on Discharge: Stable Discharge Disposition: Rehab Inpatient Discharge Instructions DIET: Follow Instructions for: As Tolerated, No Restrictions Activities you can perform: Regular-No Restrictions Additional Information I have spent in excess of 30 minutes in the evaluation, management, and coordination of discharge of this patient. Chirag Swenson MD Sep 28, 2017 08:43
[2017-09-28] MEDS ORDERED: BISACODYL 10 MG SUPP RECTAL ONE (08:45)
[2017-09-28] MEDS ORDERED: MAGNESIUM CITRATE SOLN 300 ML BTL PO ONE (08:45)
--- NOTE | 2017-09-28 08:46 | HHI.PR ---
Neuropsych Behavior Behavior: Mild: Impulsive/Agitated Cognitive Cognitive: Severe: Cognitive, Attention/Concentration, Confused/Orientation, Insight/Awareness, Judgement/Problem-Solving, Memory Psychosocial Psychosocial: Moderate: Psychosocial, Family/Other Adjustment, Realistic Expectation, Unable to Asses: Self-Esteem/Confidence Progress Notes/Response to Tx Contents of Sessions: Adjustment, Level of Consciousness Time with Patient: 15 minutes Premorbid psychological status Premorbid Cognitive, Emotional and Behavioral Status: Unable to Assess. The patient was unable to report on her baseline abilities. Behavioral Reactions of Patient and Family/Support System: Unable to Assess. The patients family is experiencing ongoing issues of adjustment given the nature of the injury, and this aspect of recovery will require ongoing monitoring. Emotional/Behavioral Status of Patient and Family/Support System: Unable to Assess. Pertinent issues, if appropriate to this patients clinical care, are described in detail above. Maximizing acute care outcome It is recommended that the patient be monitored for emergent behavioral impulsivity as the medical condition evolves. I will follow her along with you to manage these aspects of her recovery. This patients neuropathological challenges may limit her rehabilitation potential going forward, and these challenges will require specialized therapeutic skills to maximize outcome. At this point in the recovery process, the patient does not have cognitive capacity as the patient is unable to understand a situation and its likely consequences, nor is she able to manipulate information rationally. Cognitive capacity will be assessed throughout the recovery process. Anticipated Problems Ongoing areas of concern will include behavioral impulsivity, lack of insight and judgment, which is expected to improve with time and treatment. Presently , the patient is not following commands. Given the severity of the patient's injuries it is my clinical opinion that this patient will be unable to return to any type of productive employment for at least one year, perhaps longer and likely never. This patient is not considered safe to discharge home with supervision. Treatment Plan This clinician will continue to follow with you throughout the course of this patients acute care treatment, and I will be available to meet with the patient s family/support system to facilitate their understanding and the ongoing care of their family member. The goals of neuropsychological intervention shall be both educational and supportive to the family/support system as is deemed clinically appropriate. [facility] Level: IV:Confused/Agitated-maximal assist Disinhibition Score: 24.50 Aggression Score: 17.50 Lability Score: 14.00 Agitated Behavior Total Score: 20 Impression This 77 year old woman is s/p TBI 2T fall with agitation/restlessness. I will follow her to assist with agitation management. Diagnosis: (1) Major neurocognitive disorder as late effect of traumatic brain injury with behavioral disturbance Progress Note Narrative Ongoing follow-up of patient seen during daily neuropsychology rounds. This is day 15 post injury. The patient remains agitated/restless with ABS score of 20 (24.5, 17.5, 14). She is presently on Seroquel 50/50/100 and Propranolol 20 q8H. She is Rancho IV. One possible suggestion would be to start Valproic Acid to facilitate agitation reduction, unless medically contraindicated. I will continue to follow once she is at [facility]. Cezar Ny PhD Sep 28, 2017 8:46 am
[2017-09-28 08:49] VITALS: PULSE 68
[2017-09-29 14:22] LABS: RENIN 2.1 ng/mL/h
== END 2017-09-28 12:36 | DRG 85 ==
LOC: PHED 12:46 → PHEDA 14:45 → N03B 17:06
PROVIDERS: ADMIT Surgery Surgical Critical Care; ATTEND Surgery Surgical Critical Care
DX: S06.5X0A Traumatic subdural hemorrhage without loss of consciousness, initial encounter (principal); S06.1X0A Traumatic cerebral edema without loss of consciousness, initial encounter; S06.6X0A Traumatic subarachnoid hemorrhage without loss of consciousness, initial encounter; F01.51 Vascular dementia, unspecified severity, with behavioral disturbance; E22.2 Syndrome of inappropriate secretion of antidiuretic hormone; M48.02 Spinal stenosis, cervical region; R47.01 Aphasia; E11.9 Type 2 diabetes mellitus without complications; Z78.1 Physical restraint status; S02.119A Unspecified fracture of occiput, initial encounter for closed fracture; D64.9 Anemia, unspecified; I10 Essential (primary) hypertension; F32.9 Major depressive disorder, single episode, unspecified; Z91.81 History of falling; W18.39XA Other fall on same level, initial encounter; Y93.E9 Activity, other interior property and clothing maintenance; Y92.008 Other place in unspecified non-institutional (private) residence as the place of occurrence of the external cause; S02.31XD Fracture of orbital floor, right side, subsequent encounter for fracture with routine healing; F41.9 Anxiety disorder, unspecified; K21.9 Gastro-esophageal reflux disease without esophagitis; E03.9 Hypothyroidism, unspecified; R42 Dizziness and giddiness; S00.03XA Contusion of scalp, initial encounter; Z90.710 Acquired absence of both cervix and uterus; Z79.891 Long term (current) use of opiate analgesic; E87.6 Hypokalemia; K59.00 Constipation, unspecified; F50.89 Other specified eating disorder
CPT/HCPCS: 70450; 72125; 74018; 80048; 80053; 81001; 82088; 82533; 82948; 83735; 83930; 83935; 84100; 84244; 84295; 84300; 84443; 84550; 85025; 85027; 85610; 85730; 87641; 93005; 94150; 94640; 94664; 95819; J1630; J1644; J1940; J3480; J7030

== ENCOUNTER 2017-11-07 17:06 | Emergency (ER) | payer MEDICARE, BC ==
[~2017-11-07] VITALS: Ht 167.6 cm; Wt 60.0 kg
[~2017-11-07 17:06] MED LIST changes: +ACET325T15 PO; +AMAN100UDC PO; -AUGM875T3 PO; +COMMODE 3-IN-11 MIS; +DEME150T2 PO; +GETGO ROLLING W1 MI1; -GLIP5TAB8 PO; +LEVO.1 PO; -LEVO100T5 PO; -MECL12.574 PO; +METO25TA3 PO; +Megestrol Liq PO; -PARO20TA2 PO; -PERC5TAB12 PO; +PERI PO; -PROP20TA3 PO; +QUET1TAB8 PO; +TRAZ50TA12 PO; +VALP250 PO; +WHEEMIS3
[2017-11-07 17:12] VITALS: BP 116/71; PULSE 111; RESP 16; TEMP 97.8; O2SAT 100
[2017-11-07 17:29] VITALS: BP 119/84; PULSE 90; RESP 18; O2SAT 100
[2017-11-07] MEDS ORDERED: SODIUM CHLORIDE 0.9% FLUSH 10 ML FLUSH IV FLUSH PRN (17:30)
--- NOTE | 2017-11-07 17:37 | PD ---
HPI Chief Complaint: Complaint Time Seen by Provider: 17:18 Travel History International Travel<30 days: No Contact w/Intl Traveler<30days: No Traveled to known affect area: No History of Present Illness HPI Patient is a 77-year-old female presents emergency department with family for evaluation of abnormal labs. Patient recently was discharged from the hospital for traumatic hemorrhage of her brain, [facility] she is now at home and had labs drawn sometime within the last week which showed dehydration and urinary tract infection and they were called by the primary care physician today and told to come the emergency department. Patient very hard of hearing but has no complaints at this time, denies any chest pain shortness of breath abdominal pain nausea vomiting. Family states that she did have a fall today unclear whether this was a loss of consciousness or trip and fall. This is the same mechanism of action were she had a traumatic head injury. Symptoms are mild, associated signs and symptoms and context as above, for the past week PFSH Past Medical History Arthritis: Yes Asthma: No Autoimmune Disease: No Anxiety: Yes Depression: Yes Heart Rhythm Problems: No Cancer: No Cardiovascular Problems: Yes High Cholesterol: Yes Chemotherapy: No Chest Pain: No Congestive Heart Failure: Yes COPD: No Cerebrovascular Accident: No Diabetes: Yes Patient Takes Glucophage: No Endocrine: Yes (SIADH) Gastrointestinal Disorders: Yes GERD: Yes Genitourinary: No Headaches: Yes Hiatal Hernia: No Hypertension: Yes Immune Disorder: No Kidney Stones: No Musculoskeletal: No Neurologic: Yes (Dysarthria, Acute delirium/encephalopathy. Closed occipital skull fracture) Psychiatric: Yes Reproductive: No Respiratory: No Migraines: Yes Radiation Therapy: No Renal Failure: No Seizures: No Sickle Cell Disease: No Sleep Apnea: No Thyroid Disease: Yes Ulcer: No Menopausal: Yes Past Surgical History Abdominal Surgery: No AICD: No Arteriovenous Shunt: No Cardiac Surgery: No Ear Surgery: No Endocrine Surgery: No Eye Surgery: No Genitourinary Surgery: No Gynecologic Surgery: Yes (Hysterectomy) Hysterectomy: Yes Insulin Pump: No Joint Replacement: No Oral Surgery: No Pacemaker: No Thoracic Surgery: No Other Surgery: Yes Social History Alcohol Use: No Tobacco Use: No Substance Use: No Allergies-Medications (Allergen,Severity, Reaction): Coded Allergies: No Known Allergies (Unverified Allergy, Unknown, 11/07/17) Reported Meds & Prescriptions Reported Meds & Active Scripts Active Omeprazole 20 Mg Tab 20 Mg PO DAILY Synthroid (Levothyroxine Sodium) 100 Mcg Tab 100 Mcg PO DAILY@0600 30 Days [Megestrol Liq] 400 MG/10 ML Susp 400 Mg PO DAILY 30 Days Gnp Senna Plus 8.6-50 mg (Sennosides-Docusate Sodium) 8.6 Mg-50 Mg Tab 1 Tab PO BID PRN 30 Days Amantadine Liq (Amantadine HCl) 50 Mg/5 Ml Soln 150 Mg PO BID@0700,1200 30 Days Quetiapine (Quetiapine Fumarate) 100 Mg Tab 150 Mg PO HS 30 Days Trazodone (Trazodone HCl) 50 Mg Tab 100 Mg PO HS 30 Days Depakene (Valproic Acid) 250 Mg Cap 250 Mg PO QID 30 Days Eq Acetaminophen (Acetaminophen) 325 Mg Tab 650 Mg PO Q6HR PRN 30 Days Metoprolol Tartrate 25 Mg Tab 12.5 Mg PO Q12HR 30 Days Demeclocycline (Demeclocycline HCl) 150 Mg Tab 150 Mg PO Q12HR 30 Days Commode 3-in-1 (Device) 1 Mis Mis Ea .XX DIRECTED Walker Rolling/GetGo (Device) 1 Mis Mis Ea .XX DIRECTED Wheelchair (Device) 1 Mis Mis Ea .XX DIRECTED Review of Systems Except as stated in HPI: all other systems reviewed are Neg Physical Exam Narrative GENERAL: Well-developed, thin in no obvious distress peer SKIN: Focused skin assessment warm/dry. Decreased skin turgor. HEAD: Atraumatic. Normocephalic. No do signs no raccoon's eyes. EYES: Pupils equal and round. No scleral icterus. No injection or drainage. ENT: No nasal bleeding or discharge. Mucous membranes pink and moist. NECK: Trachea midline. No JVD. CARDIOVASCULAR: Regular rate and rhythm. No murmur appreciated. RESPIRATORY: No accessory muscle use. Clear to auscultation. Breath sounds equal bilaterally. GASTROINTESTINAL: Abdomen soft, non-tender, nondistended. Hepatic and splenic margins not palpable. MUSCULOSKELETAL: No obvious deformities. No clubbing. No cyanosis. No edema. NEUROLOGICAL: Awake and alert. Very hard of hearing otherwise no obvious cranial nerve deficits, follows commands in all 4 extremities. PSYCHIATRIC: Appropriate mood and affect; insight and judgment normal. Data Data Last Documented VS Vital Signs Date Time Temp Pulse Resp B/P (MAP) Pulse Ox O2 Delivery O2 Flow Rate FiO2 11/07/17 17:29 90 18 119/84 (96) 100 Room Air 11/07/17 17:12 97.8 Orders Orders Urinalysis - C+S If Indicated (11/07/17 17:18) Complete Blood Count With Diff (11/07/17 17:18) Comprehensive Metabolic Panel (11/07/17 17:18) Iv Access Insert/Monitor (11/07/17 17:18) Ecg Monitoring (11/07/17 17:18) Oximetry (11/07/17 17:18) Sodium Chloride 0.9% Flush (Ns Flush) (11/07/17 17:30) Electrocardiogram (11/07/17 17:18) Sodium Chlorid 0.9% 500 Ml Inj (Ns 500 M (11/07/17 17:45) Ct Brain W/O Iv Contrast(Rout) (11/07/17 ) Ct Cerv Spine W/O Contrast (11/07/17 ) Chest, Single Ap (11/07/17 ) Labs Laboratory Tests Test 11/07/17 17:45 11/07/17 18:00 White Blood Count 7.0 TH/MM3 Red Blood Count 3.95 MIL/MM3 Hemoglobin 11.6 GM/DL Hematocrit 34.4 % Mean Corpuscular Volume 87.1 FL Mean Corpuscular Hemoglobin 29.3 PG Mean Corpuscular Hemoglobin Concent 33.6 % Red Cell Distribution Width 16.4 % Platelet Count 236 TH/MM3 Mean Platelet Volume 8.4 FL Neutrophils (%) (Auto) 50.1 % Lymphocytes (%) (Auto) 31.7 % Monocytes (%) (Auto) 12.7 % Eosinophils (%) (Auto) 4.7 % Basophils (%) (Auto) 0.8 % Neutrophils # (Auto) 3.5 TH/MM3 Lymphocytes # (Auto) 2.2 TH/MM3 Monocytes # (Auto) 0.9 TH/MM3 Eosinophils # (Auto) 0.3 TH/MM3 Basophils # (Auto) 0.1 TH/MM3 CBC Comment AUTO DIFF Differential Total Cells Counted 100 Neutrophils % (Manual) 57 % Band Neutrophils % 3 % Lymphocytes % 26 % Monocytes % 6 % Eosinophils % 6 % Neutrophils # (Manual) 4.3 TH/MM3 Promyelocytes 2 % Differential Comment FINAL DIFF MANUAL Platelet Estimate NORMAL Platelet Morphology Comment NORMAL Ovalocytes 1+ Blood Urea Nitrogen 42 MG/DL Creatinine 1.46 MG/DL Random Glucose 152 MG/DL Total Protein 7.9 GM/DL Albumin 3.6 GM/DL Calcium Level 9.2 MG/DL Alkaline Phosphatase 120 U/L Aspartate Amino Transf (AST/SGOT) 21 U/L Alanine Aminotransferase (ALT/SGPT) 42 U/L Total Bilirubin 0.4 MG/DL Sodium Level 139 MEQ/L Potassium Level 3.8 MEQ/L Chloride Level 106 MEQ/L Carbon Dioxide Level 22.2 MEQ/L Anion Gap 11 MEQ/L Estimat Glomerular Filtration Rate 35 ML/MIN Urine Color YELLOW Urine Turbidity CLEAR Urine pH 5.5 Urine Specific [place] 1.029 Urine Protein TRACE mg/dL Urine Glucose (UA) NEG mg/dL Urine Ketones 10 mg/dL Urine Occult Blood NEG Urine Nitrite NEG Urine Bilirubin NEG Urine Urobilinogen 2.0 MG/DL Urine Leukocyte Esterase NEG Urine RBC 1 /hpf Urine WBC 3 /hpf Urine Squamous Epithelial Cells <1 /hpf Urine Hyaline Casts 1 /lpf Urine Mucus FEW /lpf Microscopic Urinalysis Comment CULT NOT INDICATED MDM Medical Decision Making Medical Screen Exam Complete: Yes Emergency Medical Condition: Yes Differential Diagnosis Dehydration, acute kidney injury, urinary tract infection, head injury, neck injury, Narrative Course Patient was roomed in the emergency department, while critically hard of hearing she has no complaints. Creatinine returned minimally elevated 1.4, her baseline appears to be around 0.9-1.1. Awaiting a CT head and C-spine the patient was discussed with Dr. Gaytan at 1900 shift change to follow-up these imaging studies and disposition appropriately. Mike Jarrett MD Nov 07, 2017 17:37
[2017-11-07] MEDS ORDERED: SODIUM CHLORID 0.9% 500 ML INJ 500 ML IV ONE ×2 (17:45→20:15)
[2017-11-07 18:06] LABS: AUTOMATED NEUTROPHIL # 3.5 TH/MM3 (1.8-7.7); BASOPHIL # 0.1 TH/MM3 (0-0.2); BASOPHIL % 0.8 % (0.0-2.0); EOSINOPHIL # 0.3 TH/MM3 (0-0.4); EOSINOPHIL % 4.7 % (0.0-4.0); HEMATOCRIT 34.4 % (35.0-46.0); HEMOGLOBIN 11.6 GM/DL (11.6-15.3); LYMPH % 31.7 % (9.0-44.0); LYMPHOCYTE # 2.2 TH/MM3 (1.0-4.8); MEAN CELL VOLUME 87.1 FL (80.0-100.0); MEAN CORPUSCULAR HEMOGLOBIN 29.3 PG (27.0-34.0); MEAN CORPUSCULAR HGB CONC 33.6 % (32.0-36.0); MEAN PLATELET VOLUME 8.4 FL (7.0-11.0); MONO % 12.7 % (0.0-8.0); MONOCYTE # 0.9 TH/MM3 (0-0.9); NEUT % 50.1 % (16.0-70.0); PLATELET COUNT 236 TH/MM3 (150-450); RED BLOOD COUNT 3.95 MIL/MM3 (4.00-5.30); RED CELL DISTRIBUTION WIDTH 16.4 % (11.6-17.2)
[2017-11-07 18:21] LABS: BLOOD, URINE NEG (NEG); GLUCOSE,URINE NEG (NEG); HYALINE CAST, URINE 1 /lpf (RARE); KETONE, URINE 10 mg/dL (NEG); MUCUS URINE FEW /lpf (OCC); NITRITE,URINE NEG (NEG); PH, URINE 5.5 (5.0-8.5); SQUAMOUS EPITHELIAL CELL URINE <1 /hpf (0-5); URINE COLOR YELLOW (YELLW/STRAW); URINE LEUKOCYTE ESTERASE NEG (NEG)
[2017-11-07 18:24] LABS: BILIRUBIN, URINE NEG (NEG)
[2017-11-07 18:38] LABS: ALBUMIN 3.6 GM/DL (3.4-5.0); ALT (GPT) 42 U/L (10-53); AST (GOT) 21 U/L (15-37); BICARBONATE 22.2 MEQ/L (21.0-32.0); BLOOD UREA NITROGEN 42 MG/DL (7-18); CALCIUM 9.2 MG/DL (8.5-10.1); CHLORIDE 106 MEQ/L (98-107); CREATININE 1.46 MG/DL (0.50-1.00); GLOMERULAR FILTRATION RATE 35 ML/MIN (>89); GLUCOSE,RANDOM 152 MG/DL (74-106); SODIUM (NA) 139 MEQ/L (136-145)
[2017-11-07 18:40] LABS: ALKALINE PHOSPHATASE 120 U/L (45-117); TOTAL BILIRUBIN ADULT 0.4 MG/DL (0.2-1.0); TOTAL PROTEIN 7.9 GM/DL (6.4-8.2)
--- NOTE | 2017-11-07 18:58 | RADRPT ---
EXAM DATE/TIME: 11/07/2017 18:35 CORRECTION Corrected on: November 07, 2017; [facility] COMPARISON: CT BRAIN W/O CONTRAST, September 13, 2017, 13:56. CT BRAIN W/O CONTRAST, October 03, 2017, 17:04. CT BRAIN W/O CONTRAST, October 10, 2017, 13:04. INDICATIONS : Trauma; fall. RADIATION DOSE: 11.28 CTDIvol (mGy) MEDICAL HISTORY : Hypertension. Closed skull fracture. SURGICAL HISTORY : Hysterectomy. ENCOUNTER: Initial ACUITY: 1 day PAIN SCALE: Non-responsive LOCATION: Bilateral neck TECHNIQUE: Multiple contiguous axial images were obtained of the head. Using automated exposure control and adj ustment of the mA and/or kV according to patient size, radiation dose was kept as low as reasonably a chievable to obtain optimal diagnostic quality images. DICOM format image data is available electro nically for review and comparison. FINDINGS: CEREBRUM: The ventricles are normal for age. No evidence of midline shift, mass lesion, hemorrhage or acute in farction. No extra-axial fluid collections are seen. Left frontal area of decreased attenuation is a gain noted and stable. Right mid parietal subcortical white matter area of decreased attenuation is s table and likely represents old lacunar infarct. POSTERIOR FOSSA: The cerebellum and brainstem are intact. The 4th ventricle is midline. The cerebellopontine angle i s unremarkable. EXTRACRANIAL: The visualized portion of the orbits is intact. SKULL: The previous right occipital skull fracture is again noted and unchanged. CONCLUSION: 1. No acute infarct, midline shift or extra-axial fluid collections. 2. Stable area of decreased attenuation throughout the left frontal lobe suggestive of possible encep halomalacia or edema. 3. 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 4. Stable right occipital skull fracture. 1. Mike Laguna MD on November 07, 2017 at 18:52 Board Certified Radiologist. This report was verified electronically. Mike Laguna MD on November 07, 2017 at 19:51 Board Certified Radiologist. This report was verified electronically.
[2017-11-07 19:04] LABS: BANDS 3 % (0-6); LYMPHOCYTES 26 % (9-44); MONOCYTES 6 % (0-8); NEUTROPHIL # MANUAL DIFF 4.3 TH/MM3 (1.8-7.7); OVALOCYTES 1+ (NORMAL); POLYS (SEG NEUTROPHILS) 57 % (16-70); PROMYELOCYTES 2 % (0-0)
--- NOTE | 2017-11-07 19:12 | RADRPT ---
EXAM DATE/TIME: 11/07/2017 18:35 [facility] COMPARISON: CT CERVICAL SPINE W/O CONTRAST, September 13, 2017, 13:56. INDICATIONS : Trauma; fall. RADIATION DOSE: 30.66 CTDIvol (mGy) MEDICAL HISTORY : Hypertension. Closed skull fracture. SURGICAL HISTORY : Hysterectomy. ENCOUNTER: Initial ACUITY: 1 day PAIN SCALE: Non-responsive LOCATION: cranial TECHNIQUE: Volumetric scanning of the cervical spine was performed. Multiplanar reconstructions in the sagittal, coronal and oblique axial planes were performed. Using automated exposure control and adjustment o f the mA and/or kV according to patient size, radiation dose was kept as low as reasonably achievable to obtain optimal diagnostic quality images. DICOM format image data is available electronically f or review and comparison. FINDINGS: The right occipital skull base fracture is again noted and incompletely healed. There is persistent g rade I retrolisthesis of C3 in relation to C2 and C4 as well as C5 in relation to C4 and C6. Diffuse cervical spondylosis is again noted. Scoliosis is also again noted. No acute cervical spine fracture is noted. Mild spinal stenosis is noted at C3-4 and C5-6. There is no significant change in the moder ate bilateral foraminal narrowing at C5-6, moderate left neural foraminal narrowing at C6-7 and moder ate right neural foraminal narrowing at C3-4. CONCLUSION: 1. No significant change compared to the previous examination dated 09/13/17. 2. Stable right occipital skull base fracture. 3. Degenerative changes, scoliosis, multilevel moderate foraminal narrowing and mild spinal stenoses are stable. 4. No acute fracture or prevertebral soft tissue swelling in the cervical spine. Mike Laguna MD on November 07, 2017 at 19:05 Board Certified Radiologist. This report was verified electronically.
--- NOTE | 2017-11-07 19:19 | RADRPT ---
EXAM DATE/TIME: 11/07/2017 18:26 [facility] COMPARISON: CHEST SINGLE AP, October 05, 2017, 17:26. INDICATIONS : Chest pain. MEDICAL HISTORY : None. SURGICAL HISTORY : None. ENCOUNTER: Initial ACUITY: 1 day PAIN SCORE: Non-responsive. LOCATION: Bilateral chest FINDINGS: Minimal streakiness is noted in the left lung base but is improved compared to previous examination c onsistent with possible residual atelectasis or scarring. Calcified granuloma is noted within the rig ht apex. The heart is stable. CONCLUSION: Minimal streakiness within the left lung base which is improved compared to previous examination cons istent with possible residual atelectasis or scarring. Mike Laguna MD on November 07, 2017 at 19:17 Board Certified Radiologist. This report was verified electronically.
[2017-11-07 19:51] VITALS: BP 136/68; PULSE 100; RESP 20; TEMP 97.7; O2SAT 100
--- NOTE | 2017-11-07 19:51 | PD ---
Physical Exam Date Seen by Provider: Nov 07, 2017 Time Seen by Provider: 19:45 Narrative Accepted in transfer of care from Dr. Jarrett GENERAL: Well-developed well-nourished elderly female in no acute distress or respiratory distress with diminished hearing and intermittently tearful SKIN: Warm and dry. HEAD: Normocephalic. EYES: No scleral icterus. No injection or drainage. NECK: Supple, trachea midline. No JVD or lymphadenopathy. CARDIOVASCULAR: Regular rate and rhythm without murmurs, gallops, or rubs. RESPIRATORY: Breath sounds equal bilaterally. No accessory muscle use. GASTROINTESTINAL: Abdomen soft, non-tender, nondistended. MUSCULOSKELETAL: No cyanosis, or edema. BACK: Nontender without obvious deformity. No CVA tenderness. Data Data Last Documented VS Vital Signs Date Time Temp Pulse Resp B/P (MAP) Pulse Ox O2 Delivery O2 Flow Rate FiO2 11/07/17 19:51 97.7 100 20 136/68 (90) 100 Room Air Orders Orders Urinalysis - C+S If Indicated (11/07/17 17:18) Complete Blood Count With Diff (11/07/17 17:18) Comprehensive Metabolic Panel (11/07/17 17:18) Iv Access Insert/Monitor (11/07/17 17:18) Ecg Monitoring (11/07/17 17:18) Oximetry (11/07/17 17:18) Sodium Chloride 0.9% Flush (Ns Flush) (11/07/17 17:30) Electrocardiogram (11/07/17 17:18) Sodium Chlorid 0.9% 500 Ml Inj (Ns 500 M (11/07/17 17:45) Ct Brain W/O Iv Contrast(Rout) (11/07/17 ) Ct Cerv Spine W/O Contrast (11/07/17 ) Chest, Single Ap (11/07/17 ) Sodium Chlorid 0.9% 500 Ml Inj (Ns 500 M (11/07/17 20:15) Labs Laboratory Tests Test 11/07/17 17:45 11/07/17 18:00 White Blood Count 7.0 TH/MM3 Red Blood Count 3.95 MIL/MM3 Hemoglobin 11.6 GM/DL Hematocrit 34.4 % Mean Corpuscular Volume 87.1 FL Mean Corpuscular Hemoglobin 29.3 PG Mean Corpuscular Hemoglobin Concent 33.6 % Red Cell Distribution Width 16.4 % Platelet Count 236 TH/MM3 Mean Platelet Volume 8.4 FL Neutrophils (%) (Auto) 50.1 % Lymphocytes (%) (Auto) 31.7 % Monocytes (%) (Auto) 12.7 % Eosinophils (%) (Auto) 4.7 % Basophils (%) (Auto) 0.8 % Neutrophils # (Auto) 3.5 TH/MM3 Lymphocytes # (Auto) 2.2 TH/MM3 Monocytes # (Auto) 0.9 TH/MM3 Eosinophils # (Auto) 0.3 TH/MM3 Basophils # (Auto) 0.1 TH/MM3 CBC Comment AUTO DIFF Differential Total Cells Counted 100 Neutrophils % (Manual) 57 % Band Neutrophils % 3 % Lymphocytes % 26 % Monocytes % 6 % Eosinophils % 6 % Neutrophils # (Manual) 4.3 TH/MM3 Promyelocytes 2 % Differential Comment FINAL DIFF MANUAL Platelet Estimate NORMAL Platelet Morphology Comment NORMAL Ovalocytes 1+ Blood Urea Nitrogen 42 MG/DL Creatinine 1.46 MG/DL Random Glucose 152 MG/DL Total Protein 7.9 GM/DL Albumin 3.6 GM/DL Calcium Level 9.2 MG/DL Alkaline Phosphatase 120 U/L Aspartate Amino Transf (AST/SGOT) 21 U/L Alanine Aminotransferase (ALT/SGPT) 42 U/L Total Bilirubin 0.4 MG/DL Sodium Level 139 MEQ/L Potassium Level 3.8 MEQ/L Chloride Level 106 MEQ/L Carbon Dioxide Level 22.2 MEQ/L Anion Gap 11 MEQ/L Estimat Glomerular Filtration Rate 35 ML/MIN Urine Color YELLOW Urine Turbidity CLEAR Urine pH 5.5 Urine Specific [place] 1.029 Urine Protein TRACE mg/dL Urine Glucose (UA) NEG mg/dL Urine Ketones 10 mg/dL Urine Occult Blood NEG Urine Nitrite NEG Urine Bilirubin NEG Urine Urobilinogen 2.0 MG/DL Urine Leukocyte Esterase NEG Urine RBC 1 /hpf Urine WBC 3 /hpf Urine Squamous Epithelial Cells <1 /hpf Urine Hyaline Casts 1 /lpf Urine Mucus FEW /lpf Microscopic Urinalysis Comment CULT NOT INDICATED [facility] Medical Record Reviewed: Yes Supervised Visit with MENDEZ: No Interpretation(s) UA: wnl EKG sinus tachycardia rate 100 artifact at baseline no acute ST elevation or injury pattern or ectopy is noted Last Impressions Head CT 11/07/17 0000 Signed Impressions: Service Date/Time: Tuesday, November 07, 2017 18:35 - CONCLUSION: 1. No acute infarct, midline shift or extra-axial fluid collections. 2. Stable area of decreased attenuation throughout the left frontal lobe suggestive of possible encephalomalacia or edema. 3. 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 Mike Laguna MD Chest X-Ray 11/07/17 0000 Signed Impressions: Service Date/Time: Tuesday, November 07, 2017 18:26 - CONCLUSION: Minimal streakiness within the left lung base which is improved compared to previous examination consistent with possible residual atelectasis or scarring. Mike Laguna MD Cervical Spine CT 11/07/17 0000 Signed Impressions: Service Date/Time: Tuesday, November 07, 2017 18:35 - CONCLUSION: 1. No significant change compared to the previous examination dated 09/13/17. 2. Stable right occipital skull base fracture. 3. Degenerative changes, scoliosis, multilevel moderate foraminal narrowing and mild spinal stenoses are stable. 4. No acute fracture or prevertebral soft tissue swelling in the cervical spine. Mike Laguna MD SKULL: The previous right occipital skull fracture is again noted and unchanged. CONCLUSION: 1. No acute infarct, midline shift or extra-axial fluid collections. 2. Stable area of decreased attenuation throughout the left frontal lobe suggestive of possible encephalomalacia or edema. 3. 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 4. Stable right occipital skull fracture. 1. Mike Laguna MD on November 07, 2017 at 18:52 Board Certified Radiologist. This report was verified electronically. Mike Laguna MD on November 07, 2017 at 19:51 Board Certified Radiologist. This report was verified electronically. CBC & BMP Diagram 11/07/17 17:45 Total Protein 7.9, Albumin 3.6, Calcium Level 9.2, Alkaline Phosphatase 120 H, Aspartate Amino Transf (AST/SGOT) 21, Alanine Aminotransferase (ALT/SGPT) 42, Total Bilirubin 0.4 Vital Signs Date Time Temp Pulse Resp B/P (MAP) Pulse Ox O2 Delivery O2 Flow Rate FiO2 11/07/17 17:29 90 18 119/84 (96) 100 Room Air 11/07/17 17:12 97.8 111 16 116/71 (86) 100 Differential Diagnosis Accepted in transfer of care from Dr. Jarrett; please refer to his dictation Narrative Course Accepted in transfer of care from Dr. Jarrett; for follow up labs, CT and disposition Elderly female with very severe diminished hearing with family at bedside appears in no acute respiratory distress intermittently tearful during conversation as patient has some chronic memory disturbance and decreased hearing and is fearful of being admitted to the hospital family members state that they are with her at all times now and she has multiple home health providers. Patient is identified to have renal insufficiency that appears to be worsened from comparison labs of 09/22/17 unaware of comparison labs from 1 week ago when patient was identified to have renal insufficiency through the primary care provider's office and family members do not know the results. However family members report that the primary care provider's office called today encouraging them to bring her to the hospital as she may need IV antibiotics because they felt she had a urinary tract infection and they did note on lab work recently within the past week that she had some renal insufficiency they do not know these numbers. Patient here is identified to be afebrile did have some sinus tachycardia upon initial arrival to the emergency department without tachypnea and is normotensive patient was given a 500 cc bolus of normal saline for compensation of her renal insufficiency identified by chemistry. Patient here remains afebrile urinalysis shows no evidence of infection and CBC with automated differential values are grossly normal range and there is no left shift or bandemia identified. Family members are desirous of taking the patient home and encouraging oral fluid hydration. Therefore at this point time patient is stable for outpatient management based on available information and physical exam as well as lab values however the family is encouraged strongly to encourage/force fluid hydration on the patient and for the patient to have recheck BUN and creatinine this week through her primary care provider. They are also to monitor temperature every 4 hours with thermometer if she develops fever she will need to be seen in the emergency department. Is no indication for IV antibiotic coverage at this time. Patient was noted on chest x-ray to have scarring to the left base but no evident evidence of an acute infiltrate as changes were present with previous hospitalization 1 month ago. Diagnosis Primary Impression: Renal insufficiency Additional Impression: Skull fracture Qualified Codes: S02.119K - Unspecified fracture of occiput, subsequent encounter for fracture with nonunion Referrals: Primary Care Physician 1 day Patient Instructions: General Instructions Additional Instruction: Encourage/increase/force fluid hydration Monitor temperature every 4 hours with thermometer administer acetaminophen/ Tylenol every 4 hours for fever 100.4F or greater Avoid nonsteroidal anti-inflammatory medication such as ibuprofen/Advil/Motrin or Naprosyn/naproxen/Aleve Follow-up with primary care provider call office in a.m. as patient will need to have repeat blood work to assess BUN and creatinine after fluid hydration/ oral hydration at home and for comparison to renal function identified today Return to the emergency department for any concerns or change in condition Continue chronic medications as chronically prescribed Grace Gaytan MD Nov 07, 2017 19:50
--- NOTE | 2017-11-08 11:10 | EKG ---
Date Performed: 11/07/2017 Time Performed: 18:06:58 PTAGE: 77 years EKG: SINUS TACHYCARDIA ABNORMAL RHYTHM ECG Since the prior tracing, there has been no significan t change PREVIOUS TRACING : 09/13/2017 12.56 DOCTOR: Isra Osuna Interpretating Date/Time 11/08/2017 11:07:37
== END 2017-11-07 21:25 | disposition home or self-care (01) ==
LOC: NEPC 17:06
DX: N28.9 Disorder of kidney and ureter, unspecified (principal); S02.119 Unspecified fracture of occiput; M19.90 Unspecified osteoarthritis, unspecified site; F32.9 Major depressive disorder, single episode, unspecified; E78.00 Pure hypercholesterolemia, unspecified; I11.0 Hypertensive heart disease with heart failure; I50.9 Heart failure, unspecified; E11.9 Type 2 diabetes mellitus without complications; Z79.84 Long term (current) use of oral hypoglycemic drugs
CPT/HCPCS: 70450; 71045; 72125; 80053; 81001; 85007; 85027; 93005; 96360; 96361; 99285; J7040